=== PATIENT | female | born 2000 | race Caucasian/White ===

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

== ENCOUNTER 2020-04-05 19:15 | Outpatient (CLI) | payer MEDICAID ==
[~2020-04-05] VITALS: Ht 157.5 cm; Wt 85.0 kg
--- NOTE | 2020-04-05 19:20 | NUR ---
CAROLYN GUPTA presented to unit via ambulatory from ED, accompanied by so , with c/o PELVIC PRESSURE/PAIN. CAROLYN GUPTA weighed, gowned, voided, and to bed. EFHM and TOCO applied, VS taken. CAROLYN GUPTA oriented to bed controls, call light, TV, heat, and A/C controls. above and further assessments compeleted per this rn.
[2020-04-05 19:35] VITALS: BP 112/69
[2020-04-05 19:39] VITALS: BP 112/69
[2020-04-05 19:42] LABS: BILIRUBIN,URINE NEGATIVE (NEGATIVE); CLARITY,URINE SL CLOUDY; COLOR,URINE YELLOW; GLUCOSE, URINE (UA) NEGATIVE (NEGATIVE); KETONES,URINE NEGATIVE (NEGATIVE); LEUKOCYTE ESTERASE ,URINE 1+ (NEGATIVE); NITRITE,URINE NEGATIVE (NEGATIVE); PROTEIN,URINE TRACE (NEGATIVE)
[2020-04-05 20:20] LABS: BACTERIA,URINE TRACE /HPF
--- NOTE | 2020-04-05 20:25 | NUR ---
reports not treating u/a results with a/b r/t squamous cell contamination and will watch for culture results.
[2020-04-05] MEDS ORDERED: PREN-53 PO (20:30)
--- NOTE | 2020-04-05 20:35 | NUR ---
Discharge packet given and explained, understanding voiced per pt, denies needs. rn urged pt to keep prescheduled appt for what thought on the phone was at 1300. Pt voiced understanding, pt ambulatory off unit at this time accompanied by so. no ss distress noted.
--- NOTE | 2020-04-06 08:12 | Physician Query-Final Dx ---
Clinic Account Progress/Dx Physician Query: Please give diagnosis Please include # weeks gestation Date of Service Apr 05, 2020 at 19:15 JANETT MESA Apr 06, 2020 08:12
== END 2020-04-05 20:35 | disposition home or self-care (01) ==
LOC: WSo 19:15 → LDRP 19:15 → WSo 20:35
PROVIDERS: ATTEND Family Medicine
DX: O99.89 Other specified diseases and conditions complicating pregnancy, childbirth and the puerperium (principal); Z3A.00 Weeks of gestation of pregnancy not specified
CPT/HCPCS: 81000; 87088; 99212

== ENCOUNTER → 2020-04-06 | Outpatient (CLI) | payer MEDICAID ==
[~2020-04-06] MED LIST changes: +PREN-53 PO
[2020-04-06 15:41] LABS: HEMATOCRIT 34 % (35-52); HEMOGLOBIN 11.4 G/DL (11.5-16.0); LYMPHOCYTES % (AUTO) 25 % (12-44); MEAN CORPUSCULAR HEMOGLOBIN 31 PG (25-34); MEAN CORPUSCULAR HGB CONC 33 G/DL (32-36); MEAN CORPUSCULAR VOLUME 94 FL (80-99); MEAN PLATELET VOLUME 8.6 FL (7.4-10.4); MONOCYTES % (AUTO) 5 % (0-12); NEUTROPHILS % (AUTO) 69 % (42-75); PLATELET COUNT 299 10^3/uL (130-400); RED CELL DISTRIBUTION WIDTH 12.1 % (10.0-14.5); WHITE BLOOD COUNT 11.2 10^3/uL (4.3-11.0)
[2020-04-06 15:42] LABS: BASOPHILS % (AUTO) 0 % (0-10); EOSINOPHILS # (AUTO) 0.1 10^3/uL (0.0-0.3); EOSINOPHILS % (AUTO) 1 % (0-10); LYMPHOCYTES # (AUTO) 2.8 X 10^3 (1.0-4.0); MONOCYTES # (AUTO) 0.5 X 10^3 (0.0-1.0); NEUTROPHILS # (AUTO) 7.7 X 10^3 (1.8-7.8)
== END ==
LOC: LAB FS 14:59
PROVIDERS: ATTEND Family Medicine
DX: Z34.90 Encounter for supervision of normal pregnancy, unspecified, unspecified trimester (principal)
CPT/HCPCS: 36415; 82950; 85025; 86780

== ENCOUNTER 2020-04-09 17:16 | Outpatient (CLI) | payer MEDICAID ==
--- NOTE | 2020-04-09 17:25 | NUR ---
CAROLYN GUPTA presented to unit via ambulatory from ED, accompanied by Bakari , with c/o PRESSURE. CAROLYN GUPTA weighed, gowned, voided, and to bed. EFHM and TOCO applied, VS taken. CAROLYN GUPTA oriented to bed controls, call light, TV, heat, and A/C controls.
[2020-04-09 17:30] VITALS: BP 105/58
[2020-04-09 17:47] VITALS: BP 105/58
[2020-04-09 17:49] VITALS: BP 105/58
[2020-04-09 17:51] LABS: BILIRUBIN,URINE NEGATIVE (NEGATIVE); CLARITY,URINE SL CLOUDY; COLOR,URINE YELLOW; GLUCOSE, URINE (UA) NEGATIVE (NEGATIVE); KETONES,URINE NEGATIVE (NEGATIVE); LEUKOCYTE ESTERASE ,URINE 1+ (NEGATIVE); NITRITE,URINE NEGATIVE (NEGATIVE); PROTEIN,URINE NEGATIVE (NEGATIVE)
[2020-04-09 18:01] LABS: BACTERIA,URINE TRACE /HPF
[2020-04-09] MEDS ORDERED: NS IV 1000 ML 1,000 ML ONE (18:26)
--- NOTE | 2020-04-09 18:26 | NUR ---
Dr Zeng notified of pt admission and complaints of pelvic pressure and inability to void. Voided 30 mls of urine upon admission - states that is the only time voided today. UA results given to physician. Having some uterine irritability - pt not really aware of them on admission. Will start IV.
[2020-04-09] MEDS ORDERED: NS IV 1000 ML 1,000 ML IV SCH (18:30)
[2020-04-09 20:03] VITALS: BP 88/55
--- NOTE | 2020-04-09 20:03 | NUR ---
Fluids are done infusing. Pt. states she feels as if she can void. Up to bathroom. Voided 200ml of straw colored urine into hat. Back to bed.
--- NOTE | 2020-04-09 20:08 | NUR ---
Dr. Zeng updated on pt. Strip reviewed. Informed that pt states she still feels pressure, but was able to void 200ml of urine. orders that pt can be discharged at this time.
[2020-04-09 20:22] VITALS: BP 101/57
--- NOTE | 2020-04-12 08:17 | Physician Query-Final Dx ---
JANETT MESA 04/12/20 0817: Clinic Account Progress/Dx Physician Query: Please give diagnosis Please include # weeks gestation Date of Service Apr 09, 2020 at 17:16 DARNELL MEJÍA DO 04/12/20 1917: Clinic Account Progress/Dx DIAGNOSIS: Diagnosis 28 week gestation uterine irritability pelvic pressure inability to void JANETT MESA Apr 12, 2020 08:17 DARNELL MEJÍA DO Apr 12, 2020 19:17
== END 2020-04-09 20:23 ==
LOC: WSo 17:16 → LDRP 17:17 → WSo 20:23
PROVIDERS: ATTEND Obstetrics & Gynecology
DX: O26.893 Other specified pregnancy related conditions, third trimester (principal); N85.8 Other specified noninflammatory disorders of uterus; R10.2 Pelvic and perineal pain; R39.198 Other difficulties with micturition; Z3A.28 28 weeks gestation of pregnancy
CPT/HCPCS: 81000; 87088; 96360; 99213

== ENCOUNTER 2020-05-22 21:53 | Outpatient (CLI) | payer MEDICAID ==
[~2020-05-22] VITALS: Ht 157.5 cm; Wt 84.3 kg
--- NOTE | 2020-05-22 22:00 | NUR ---
CAROLYN GUPTA presented to unit via ambulation from ED, accompanied by s.o., with c/o SHARP PAINS. CAROLYN GUPTA weighed, gowned, voided, and to bed. EFHM and TOCO applied, VS taken. CAROLYN GUPTA oriented to bed controls, call light, TV, heat, and A/C controls.
[2020-05-22 22:26] VITALS: BP 119/68
[2020-05-22 22:40] VITALS: BP 119/68
--- NOTE | 2020-05-22 22:40 | NUR ---
Discharge instructions verbalized with pt. Labor precautions given. Pt dc'd home with s/o. Will follow up with
--- NOTE | 2020-05-24 08:13 | Physician Query-Final Dx ---
JANETT MESA 05/24/20 0813: Clinic Account Progress/Dx Physician Query: Please give diagnosis Please include # weeks gestation Date of Service May 22, 2020 at 21:53 LUÍS MONTILLA MD 05/24/20 1310: Clinic Account Progress/Dx DIAGNOSIS: Diagnosis 34 weeks gestation with false labor JANETT MESA May 24, 2020 08:13 LUÍS MONTILLA MD May 24, 2020 13:10
== END 2020-05-22 22:40 | disposition home or self-care (01) ==
LOC: LDRP 21:53 → WSo 21:53
PROVIDERS: ATTEND Obstetrics & Gynecology
DX: O47.03 False labor before 37 completed weeks of gestation, third trimester (principal); Z3A.34 34 weeks gestation of pregnancy
CPT/HCPCS: 99213

== ENCOUNTER → 2020-06-02 | Outpatient (CLI) | payer MEDICAID | LOC: LABNPT 14:55 | PROVIDERS: ATTEND Family Medicine | DX: Z34.80 Encounter for supervision of other normal pregnancy, unspecified trimester (principal); Z3A.00 Weeks of gestation of pregnancy not specified | CPT/HCPCS: 87081 ==

== ENCOUNTER 2020-06-22 05:58 | Inpatient (IN) | payer MEDICAID ==
[~2020-06-22] VITALS: Ht 157.5 cm; Wt 83.1 kg
[2020-06-22] VITALS (44 sets, daily range): BP systolic 88–120; BP diastolic 51–79
--- NOTE | 2020-06-22 06:04 | NUR ---
CAROLYN GUPTA presented to unit via from ED, accompanied by SO,for INDUCTION. CAROLYN GUPTA weighed, gowned, voided, and to bed. EFHM and TOCO applied, VS taken. CAROLYN GUPTA oriented to bed controls, call light, TV, heat, and A/C controls.
[2020-06-22] MEDS ORDERED: D5 LR IV SOLUTION 1,000 ML IV SCH (07:22)
[2020-06-22] MEDS ORDERED: OXYTOCIN PRE-MIX DRIP 500 ML IV SCH ×2 (07:22→13:04)
[2020-06-22] MEDS ORDERED: AMPICILLIN FOR IV USE 2,000 MG in WATER (STERILE) FOR INJECTION 14.8 ML IV SCH (07:22)
[2020-06-22] MEDS ORDERED: MINERAL OIL CONCENTRATE 99.9% 15 ML UDC TOP PRN (07:30)
[2020-06-22] MEDS ORDERED: AMPICILLIN FOR IV USE 2,000 MG VIAL ONE (07:30)
[2020-06-22] MEDS ORDERED: D5 LR IV SOLUTION 1,000 ML IV ONE (07:30)
[2020-06-22] MEDS ORDERED: WATER (STERILE) FOR INJECTION 20 ML ONE (07:30)
[2020-06-22 08:31] LABS: BASOPHILS % (AUTO) 0 % (0-10); EOSINOPHILS # (AUTO) 0.1 10^3/uL (0.0-0.3); EOSINOPHILS % (AUTO) 1 % (0-10); HEMATOCRIT 29 % (35-52); HEMOGLOBIN 9.6 g/dL (11.5-16.0); LYMPHOCYTES # (AUTO) 2.4 10^3/uL (1.0-4.0); LYMPHOCYTES % (AUTO) 25 % (12-44); MEAN CORPUSCULAR HEMOGLOBIN 32 pg (25-34); MEAN CORPUSCULAR HGB CONC 34 g/dL (32-36); MEAN CORPUSCULAR VOLUME 96 fL (80-99); MEAN PLATELET VOLUME 8.8 fL (9.0-12.2); MONOCYTES # (AUTO) 0.6 10^3/uL (0.0-1.0); MONOCYTES % (AUTO) 7 % (0-12); NEUTROPHILS # (AUTO) 6.4 10^3/uL (1.8-7.8); NEUTROPHILS % (AUTO) 67 % (42-75); PLATELET COUNT 204 10^3/uL (130-400); WHITE BLOOD COUNT 9.6 10^3/uL (4.3-11.0)
[2020-06-22] MEDS ORDERED: fentaNYL 2 mcg/ml BUPIVA 0.125 100 ML ONE (09:46)
[2020-06-22] MEDS ORDERED: BUPIVACAINE 0.25% 30 ML (SENSORCAINE) VIAL ONE (10:34)
[2020-06-22] MEDS ORDERED: LIDOCAINE PF 2% 5 ML (XYLOCAINE) VIAL ONE (10:34)
[2020-06-22] MEDS ORDERED: fentaNYL INJECTION 100 MCG/2 ML AMP ONE (10:34)
[2020-06-22] MEDS ORDERED: LACTATED RINGERS 1,000 ML IV ONE ×2 (10:47)
[2020-06-22] MEDS ORDERED: ONDANSETRON 4 MG/2 ML (SDV) Z0FRAN IV PRN (11:00)
[2020-06-22] MEDS ORDERED: NALOXONE 0.4 MG/ML 1 ML (NARCAN) VIAL IV PRN (11:00)
[2020-06-22] MEDS ORDERED: fentaNYL INJECTION 100 MCG/2 ML AMP INJ ONE (11:00)
[2020-06-22] MEDS ORDERED: EPIDURAL (fentaNYL 2 MCG/ML BUPIVA 0.125%)100 ML BAG EPI PRN (11:00)
[2020-06-22] MEDS ORDERED: AMPICILLIN FOR IV USE 1,000 MG in WATER (STERILE) FOR INJECTION 7.4 ML IV SCH (11:30)
[2020-06-22] MEDS ORDERED: LIDOCAINE/EPI 2% 1:200,00 (XYLOCAINE) 10 ML VIAL ONE (12:39)
--- NOTE | 2020-06-22 13:02 | History & Physical-OB ---
OB - Chief Complaint & HPI Date/Time Date of Admission: Date of Admission: Jun 22, 2020 at 05:58 Date seen by a Provider: Jun 22, 2020 Time Seen by a Provider: 12:30 Chief Complaint/History OB-Reason for Admission/Chief: Induction of Labor Hx : 2 Hx Para: 1 Expected Date of Delivery: Jun 28, 2020 Gestational Age in Weeks: 39 Gestational Age in Days: 1 Admission Nurse Assessment Rev: Yes Allergies and Home Medications Allergies Coded Allergies: latex (Verified Allergy, Unknown, 06/22/20) Home Medications [id number]/Iron Fumarate/FA/Dss 1 Each Tablet, 1 EACH PO DAILY, (Reported) Patient Home Medication List Home Medication List Reviewed: Yes OB - History Hx of Present Care: Yes Ultrasounds: Normal mid trimester US Obstetrical Complications: None Medical Complications: None Patient Past Medical History previously healthy Social History/Family History Alcohol Use: Denies Use Recreational Drug Use: No 2nd Hand Smoke Exposure: Yes Immunizations Hepatitis A: Yes Hepatitis B: Yes OB - Admission Exam Physical Exam Vitals: Vital Signs 06/22/20 06/22/20 11:11 12:05 Temp 36.8 Pulse 68 Resp 18 B/P (MAP) 92/53 (66) Pulse Ox 99 O2 Delivery Room Air HEENT: NCAT Heart: Rhythm Normal Lungs: Clear Abdomen: Gravid Extremities: Normal Reflexes: Normal Cervical Dilatation: 10cm Effacement: 100% Station: -1 Membranes: Ruptured Amniotic Fluid: Clear Heart Rate: 130's Accelerations: Accelerations Present Decelerations: No Decelerations Short Term Variability: Present Consular Officer Variability: Average (6-25) Contractions on Admission: < 5 Minutes Apart Labs Laboratory Tests Test 06/22/20 06:35 Range/Units White Blood Count 9.6 4.3-11.0 10^3/uL Red Blood Count 2.98 L 3.80-5.11 10^6/uL Hemoglobin 9.6 L 11.5-16.0 g/dL Hematocrit 29 L 35-52 % Mean Corpuscular Volume 96 80-99 fL Mean Corpuscular Hemoglobin 32 25-34 pg Mean Corpuscular Hemoglobin Concent 34 32-36 g/dL Red Cell Distribution Width 13.4 10.0-14.5 % Platelet Count 204 130-400 10^3/uL Mean Platelet Volume 8.8 L 9.0-12.2 fL Immature Granulocyte % (Auto) 0 % Neutrophils (%) (Auto) 67 42-75 % Lymphocytes (%) (Auto) 25 12-44 % Monocytes (%) (Auto) 7 0-12 % Eosinophils (%) (Auto) 1 0-10 % Basophils (%) (Auto) 0 0-10 % Neutrophils # (Auto) 6.4 1.8-7.8 10^3/uL Lymphocytes # (Auto) 2.4 1.0-4.0 10^3/uL Monocytes # (Auto) 0.6 0.0-1.0 10^3/uL Eosinophils # (Auto) 0.1 0.0-0.3 10^3/uL Basophils # (Auto) 0.0 0.0-0.1 10^3/uL Immature Granulocyte # (Auto) 0.0 0.0-0.1 10^3/uL OB - Assessment/Plan/Diagnosis Assessment Assessment: induction of labor Admission Dx Induction of labor at 39 1/7 wga. Admission Status: Inpatient Order (span 2 midnights) Reason for Inpatient Admission: Induction of labor. Plan Induction Method: per Pitocin Protocol Other Plan Epidural for pain. Ampicillin times 2 for GBS positive status. Pitocin. SEBASTIÁN HUERTA MD Jun 22, 2020 13:02
--- NOTE | 2020-06-22 13:04 | OB Labor & Delivery Record ---
Vag Delivery Note Vag Delivery Note Date of Delivery: 06/22/20 Preoperative Diagnosis: Patty Tay is a (19 /Para / ,Gestational Age (wks)39with [1 day] Postoperative Diagnosis: Same Surgeon: SEBASTIÁN HUERTA Lever Tender: [none] Anesthesia: [epidural] Delivery Type: [] Findings: [] Viable [female] , apgars [8/9] Lacerations: Intact placenta with 3 vessel cord. No nuchal cord, body cord or shoulder dystocia Estimated Blood Loss: [200] ml Complications: None Condition: Stable Description of Procedure: The patient is a 19 year old female who presented [for induction of labor]. She was admitted and informed consent was obtained. Her labor course was remarkable for [nothing] She progressed to complete dilatation and began to push. She was then set up for delivery. The infant's head was delivered atraumatically in the [OA] position. The shoulders and remainder of the 's body were then delivered without difficulty. Upon delivery, the head was held below the level of the perineum and the mouth and nares were bulb suctioned. The cord was doubly clamped and cut after 60 seconds on maternal abdomen by father of baby. An intact placenta with 3-vessel cord delivered via K[place] and there was found to be minimal bleeding.~ Vigorous fundal massage was performed and the fundus was found to be firm. IV oxytocin was given. Examination of the vagina and perineum revealed no lacerations. Following the repair, sponge, instrument and needle counts were correct. Mom and baby were both in stable condition in the labor suite. Vitals - Labs Vital Signs - I&O Vital Signs Date Time Temp Pulse Resp B/P (MAP) Pulse Ox O2 Delivery O2 Flow Rate FiO2 06/22/20 12:05 68 18 92/53 (66) 99 Room Air 06/22/20 11:55 68 18 90/55 (67) 100 Room Air 06/22/20 11:47 58 18 98/61 (73) 99 Room Air 06/22/20 11:44 66 18 94/51 (65) 99 Room Air 06/22/20 11:41 67 18 107/57 (74) 99 Room Air 06/22/20 11:38 101 18 100/56 (71) 99 Room Air 06/22/20 11:35 74 18 101/57 (72) 99 Room Air 06/22/20 11:32 90 18 103/60 (74) 98 Room Air 06/22/20 11:30 97 18 106/70 (82) 99 Room Air 06/22/20 11:27 71 18 95/61 (72) 99 Room Air 06/22/20 11:23 79 18 92/56 (68) 98 Room Air 06/22/20 11:20 86 18 88/51 (63) 98 Room Air 06/22/20 11:17 79 18 109/73 (85) 99 Room Air 06/22/20 11:14 96 18 106/65 (79) 99 Room Air 06/22/20 11:11 36.8 89 18 102/60 (74) 99 Room Air 06/22/20 11:08 93 18 114/72 (86) 98 Room Air 06/22/20 11:05 84 18 112/68 (83) 100 Room Air 06/22/20 10:57 90 18 119/79 (92) 99 Room Air 06/22/20 10:45 80 18 120/77 (91) 06/22/20 10:30 68 18 112/71 (85) 06/22/20 10:00 70 18 115/71 (86) 06/22/20 09:45 71 18 120/73 (89) 06/22/20 09:30 73 18 101/60 (74) 06/22/20 09:15 78 18 110/68 (82) 06/22/20 09:00 68 18 102/61 (75) 06/22/20 08:27 36.4 87 18 99/61 (74) 06/22/20 06:23 36.7 85 20 98 Room Air Labs Laboratory Tests 06/22/20 06:35: White Blood Count 9.6, Red Blood Count 2.98L, Hemoglobin 9.6L, Hematocrit 29L, Mean Corpuscular Volume 96, Mean Corpuscular Hemoglobin 32, Mean Corpuscular Hemoglobin Concent 34, Red Cell Distribution Width 13.4, Platelet Count 204, Mean Platelet Volume 8.8L, Immature Granulocyte % (Auto) 0, Neutrophils (%) (Auto) 67, Lymphocytes (%) (Auto) 25, Monocytes (%) (Auto) 7, Eosinophils (%) (Auto) 1, Basophils (%) (Auto) 0, Neutrophils # (Auto) 6.4, Lymphocytes # (Auto) 2.4, Monocytes # (Auto) 0.6, Eosinophils # (Auto) 0.1, Basophils # (Auto) 0.0, Immature Granulocyte # (Auto) 0.0 SEBASTIÁN HUERTA MD Jun 22, 2020 13:04
[2020-06-22] MEDS ORDERED: TETANUS,DIPTH,PERTUSS P/F (BOOSTRIX) 0.5 ML VIAL IM ONE (13:15)
[2020-06-22] MEDS ORDERED: MEASLES,MUMPS,RUBELLA 1 EA INJ SQ ONE (13:15)
[2020-06-22] MEDS ORDERED: WITCH HAZEL(TUCKS) 40 EA JAR TOP PRN (13:15)
[2020-06-22] MEDS ORDERED: BENZOCAINE/MENTHOL (DERMOPLAST) 60 ML CAN TP PRN (13:15)
[2020-06-22] MEDS ORDERED: CATHETER FLUSH 10 ML SYR IV SCH ×2 (14:00)
[2020-06-22] MEDS: IBUPROFEN 600 MG (MOTRIN) TAB PO SCH ×2 (15:45→21:15)
[2020-06-22] MEDS: ACETAMINOPHEN 500 MG TAB (TYLENOL) PO SCH (17:12)
--- NOTE | 2020-06-22 17:25 | NUR ---
Pt ambulated to bathroom with + void. 1 clot expressed, aprox. 3cm. Pericare provided, new vpad, panties, and gown on.
--- NOTE | 2020-06-22 17:30 | NUR ---
Pt ambulated to new room 308 with s/o, RN's, , and all belongings. Pt and s/o oriented to call light and surroundings. packet explained. Pt denies needs or concerns at this time
[2020-06-22] MEDS: DOCUSATE SODIUM 100 MG (COLACE) CAP PO SCH (21:15)
--- NOTE | 2020-06-22 21:26 | NUR ---
Pt sitting up in bed holding nb, assessment completed. pt denies any needs at this time. s/o sleeping at bedside. Will continue to monitor.
[2020-06-23] MEDS: ACETAMINOPHEN 500 MG TAB (TYLENOL) PO SCH ×2 (00:43→08:25)
[2020-06-23 02:00] VITALS: BP 94/61
[2020-06-23] MEDS: IBUPROFEN 600 MG (MOTRIN) TAB PO SCH ×2 (02:49→08:30)
[2020-06-23 06:12] LABS: BASOPHILS % (AUTO) 0 % (0-10); EOSINOPHILS # (AUTO) 0.2 10^3/uL (0.0-0.3); EOSINOPHILS % (AUTO) 2 % (0-10); HEMATOCRIT 28 % (35-52); HEMOGLOBIN 9.2 g/dL (11.5-16.0); LYMPHOCYTES # (AUTO) 2.8 10^3/uL (1.0-4.0); LYMPHOCYTES % (AUTO) 24 % (12-44); MEAN CORPUSCULAR HEMOGLOBIN 32 pg (25-34); MEAN CORPUSCULAR HGB CONC 33 g/dL (32-36); MEAN CORPUSCULAR VOLUME 97 fL (80-99); MEAN PLATELET VOLUME 8.7 fL (9.0-12.2); MONOCYTES # (AUTO) 0.7 10^3/uL (0.0-1.0); MONOCYTES % (AUTO) 6 % (0-12); NEUTROPHILS # (AUTO) 7.9 10^3/uL (1.8-7.8); NEUTROPHILS % (AUTO) 67 % (42-75); PLATELET COUNT 171 10^3/uL (130-400); WHITE BLOOD COUNT 11.7 10^3/uL (4.3-11.0)
--- NOTE | 2020-06-23 06:52 | Anesthesia-Regional Post-Op ---
Regional Patient Condition Mental Status: Alert, Oriented x3 Circulation: Same as Pre-Op Headache: Absent Sensation: Full Recovery Motor Block: Absent Post Op Complications Complications None Follow Up Care/Instructions Patient Instructions None needed. Anesthesia/Patient Condition Patient is doing well, no complaints, stable vital signs, no apparent adverse anesthesia problems. No complications reported per nursing. JASON BEARD CRNA Jun 23, 2020 06:52
--- NOTE | 2020-06-23 06:58 | NUR ---
pt put production planning manager light requesting pain medication. Unable to give pain meds at this time. warm blanket applied to back. Pt denies any other needs at this time.
[2020-06-23] MEDS ORDERED: IBUP-844 PO (07:11)
--- NOTE | 2020-06-23 07:11 | Discharge Summary ---
Discharge Inst-[facility] Reconcile Patient Problems Problems Reviewed?: Yes Depart Medications New, Converted or Re-Newed RX: Transmitted to Pharmacy Follow Up/Instructions Goal/Follow Up: Dr. Huerta in 6 weeks. Activity Activity: Activity as Tolerated Driving Instructions: You May Drive NO SMOKING: NO SMOKING Nothing Inside Vagina: No Douching, No [place], No Tampons Diet Discharge Diet: No Restrictions Symptoms to Report to : Fever Over 101 Degrees F, Vaginal Bleeding Increase For Any Problems or Questions: Contact Your Physician SEBASTIÁN HUERTA MD Jun 23, 2020 07:11
--- NOTE | 2020-06-23 07:14 | Discharge Summary ---
Diagnosis/Chief Complaint Date of Admission Jun 22, 2020 at 05:58 Date of Discharge Jun 23, 2020 Admission Diagnosis Admission Diagnosis Induction of labor at 39 1/7 wga. Discharge Diagnosis Vaginal delivery at 39 1/7 wga. Problems/Diagnosis: (1) care following vaginal delivery Assessment & Plan: Pain controlled. Bleeding decreased. Vitals and hemoglobin stable. Nursing. Discharge Summary-OBS Procedures None. Discharge Physical Examination Allergies: Coded Allergies: latex (Verified Allergy, Unknown, 06/22/20) Vitals & I&Os Intake and Output 06/23/20 00:00 Intake Total 2400 ml Balance 2400 ml Vital Sign - Last 12Hours Date Time Temp Pulse Resp B/P (MAP) Pulse Ox O2 Delivery O2 Flow Rate FiO2 06/23/20 02:00 36.5 52 18 94/61 (72) Room Air 06/22/20 12:50 100 General Appearance: Alert, Oriented X3 HEENT: Atraumatic Respiratory: Clear to Auscultation Cardiovascular: Regular Rate, Normal S1 Abdominal: Normal Bowel Sounds, Other (fundus firm below umbilicus) Extremities: No Edema Skin: No Rashes Neuro: Normal Gait Psych/Mental Status: Mental Status NL Hospital Course Was the Problem List Reviewed?: Yes Unremarkable course. Labs Laboratory Tests 06/23/20 05:42: White Blood Count 11.7H, Red Blood Count 2.85L, Hemoglobin 9.2L, Hematocrit 28L, Mean Corpuscular Volume 97, Mean Corpuscular Hemoglobin 32, Mean Corpuscular Hemoglobin Concent 33, Red Cell Distribution Width 13.3, Platelet Count 171, Mean Platelet Volume 8.7L, Immature Granulocyte % (Auto) 0, Neutrophils (%) (Auto) 67, Lymphocytes (%) (Auto) 24, Monocytes (%) (Auto) 6, Eosinophils (%) (Auto) 2, Basophils (%) (Auto) 0, Neutrophils # (Auto) 7.9H, Lymphocytes # (Auto) 2.8, Monocytes # (Auto) 0.7, Eosinophils # (Auto) 0.2, Basophils # (Auto) 0.0, Immature Granulocyte # (Auto) 0.0 Discharge Instructions to patient/family Please see electronic discharge instructions given to patient. Discharge Medications Reviewed and agree with Discharge Medication list on patient's Discharge Instruction sheet Clinical Quality Measures DVT/VTE Risk/Contraindication: Risk Factor Score Per Nursin RFS Level Per Nursing on Admit: 2=Moderate SEBASTIÁN HUERTA MD Jun 23, 2020 07:14
[2020-06-23] MEDS: DOCUSATE SODIUM 100 MG (COLACE) CAP PO SCH (08:24)
[2020-06-23 08:30] VITALS: BP 97/66
--- NOTE | 2020-06-23 09:30 | NUR ---
home instructions given. Pt verbalizes understanding. Pt refused Tdap and flu vaccine. Awaiting infant's 24 hr test before able to discharge. No complaints.
[2020-06-23 13:00] VITALS: BP 105/71
[2020-06-23 15:45] VITALS: BP 105/71
--- NOTE | 2020-06-23 15:45 | NUR ---
DISMISSED AMB FROM [facility] WITH INFANT IN STABLE CONDITION TO [facility] BY Anjelica AND MICHELLE ORTIZ RN.
[2020-06-23 16:45] VITALS: BP 105/71
== END 2020-06-23 15:45 | disposition home or self-care (01) | DRG 807 ==
LOC: LDRP 05:58
PROVIDERS: ADMIT Family Medicine; ATTEND Family Medicine
PROC: 10E0XZZ Delivery of Products of Conception, External Approach (ICD-10-PCS; principal; 2020-06-22)
PROC: 3E033VJ Introduction of Other Hormone into Peripheral Vein, Percutaneous Approach (ICD-10-PCS; 2020-06-22)
DX: O99.824 Streptococcus B carrier state complicating childbirth (principal); Z37.0 Single live birth; Z3A.39 39 weeks gestation of pregnancy; Z91.040 Latex allergy status
CPT/HCPCS: 36415; 85025; 86850; 86900; 86901

== ENCOUNTER → 2020-10-06 | Outpatient (CLI) | payer MEDICAID ==
[~2020-10-06] MED LIST changes: +IBUP-844 PO
== END ==
LOC: LABNPT 14:39
PROVIDERS: ATTEND Family Medicine
DX: R10.30 Lower abdominal pain, unspecified (principal)
CPT/HCPCS: 87088

== ENCOUNTER → 2021-02-07 | Outpatient (CLI) | payer MEDICAID | LOC: LAB FS 12:43 | PROVIDERS: ATTEND Family Medicine | DX: N92.5 Other specified irregular menstruation (principal) | CPT/HCPCS: 36415; 84702 ==

== ENCOUNTER → 2021-03-18 | Outpatient (CLI) | payer MEDICAID ==
[2021-03-18 14:52] LABS: BASOPHILS % (AUTO) 0 % (0-10); EOSINOPHILS % (AUTO) 1 % (0-10); HEMATOCRIT 34 % (35-52); HEMOGLOBIN 11.8 G/DL (11.5-16.0); LYMPHOCYTES % (AUTO) 25 % (12-44); MEAN CORPUSCULAR HEMOGLOBIN 32 PG (25-34); MEAN CORPUSCULAR HGB CONC 35 G/DL (32-36); MEAN CORPUSCULAR VOLUME 91 FL (80-99); MEAN PLATELET VOLUME 8.6 FL (7.4-10.4); MONOCYTES % (AUTO) 6 % (0-12); NEUTROPHILS % (AUTO) 67 % (42-75); PLATELET COUNT 328 10^3/uL (130-400); WHITE BLOOD COUNT 9.4 10^3/uL (4.3-11.0)
[2021-03-18 14:53] LABS: EOSINOPHILS # (AUTO) 0.1 10^3/uL (0.0-0.3); LYMPHOCYTES # (AUTO) 2.3 X 10^3 (1.0-4.0); MONOCYTES # (AUTO) 0.6 X 10^3 (0.0-1.0); NEUTROPHILS # (AUTO) 6.3 X 10^3 (1.8-7.8)
== END ==
LOC: LAB FS 14:27
PROVIDERS: ATTEND Family Medicine
DX: Z34.91 Encounter for supervision of normal pregnancy, unspecified, first trimester (principal); Z3A.00 Weeks of gestation of pregnancy not specified
CPT/HCPCS: 36415; 80055; 84702; 86703; 86762; 86780; 87088

== ENCOUNTER → 2021-06-02 | Outpatient (CLI) | payer MEDICAID ==
[~2021-06-02] MED LIST changes: -SULF1TAB35 PO; +SULF1TAB38 PO
--- NOTE | 2021-06-02 14:25 | Diagnostic Imaging Report ---
INDICATION: survey. TECHNIQUE: Multiple real-time grayscale images were obtained over the gravid uterus. COMPARISON: None. FINDINGS: There is a single live fetus in a cephalic presentation. heart rate was recorded at 156 BPM. Placenta is anterior and fundal. Amniotic fluid volume is normal. Cervical length is 5.1 cm. kidneys, bladder, and stomach are unremarkable. brain is unremarkable. There is a four-chamber heart. There is a three-vessel cord with normal insertion. The spine is unremarkable. Biometrical measurements are as follows: Biparietal 4.94 cm, age 21 weeks 0 days. Head circumference 18.68 cm, age 21 weeks 1 days. Abdominal circumference 16.44 cm, age 21 weeks 4 days. Femur length 3.22 cm, age 21 weeks 1 days. Sonographic estimate age: 21 weeks 0 days. Sonographic estimated date of delivery: 10/13/2021. Estimated Weight: 382 gm (+/- 56 gm). LMP percentile: 69%. heart rate: 156 beats per minute. number: 1 of 1. IMPRESSION: Single live IUP of 21 weeks 0 days gestational age. Estimated date of confinement sonographically is 10/13/2021. No complicating features are detected. Dictated by: Dictated on workstation # [id number]
== END ==
LOC: RAD FS 13:01
PROVIDERS: ATTEND Family Medicine
DX: Z34.92 Encounter for supervision of normal pregnancy, unspecified, second trimester (principal)
CPT/HCPCS: 76805

== ENCOUNTER → 2021-06-06 | Outpatient (CLI) | payer MEDICAID | LOC: LABNPT 14:43 | PROVIDERS: ATTEND Family Medicine | DX: N39.0 Urinary tract infection, site not specified (principal) | CPT/HCPCS: 87088 ==

== ENCOUNTER → 2021-08-01 | Outpatient (CLI) | payer MEDICAID ==
[2021-08-01 15:02] LABS: HEMATOCRIT 30 % (35-52); HEMOGLOBIN 10.1 g/dL (11.5-16.0); MEAN CORPUSCULAR HEMOGLOBIN 32 pg (25-34); MEAN CORPUSCULAR HGB CONC 34 g/dL (32-36); MEAN CORPUSCULAR VOLUME 94 fL (80-99); MEAN PLATELET VOLUME 8.4 fL (9.0-12.2); PLATELET COUNT 202 10^3/uL (130-400); WHITE BLOOD COUNT 6.7 10^3/uL (4.3-11.0)
== END ==
LOC: LAB FS 14:19
PROVIDERS: ATTEND Family Medicine
DX: Z34.91 Encounter for supervision of normal pregnancy, unspecified, first trimester (principal); Z3A.00 Weeks of gestation of pregnancy not specified
CPT/HCPCS: 36415; 82950; 85027; 86592

== ENCOUNTER → 2021-08-02 | Outpatient (CLI) | payer MEDICAID | LOC: LABNPT 15:08 | PROVIDERS: ATTEND Family Medicine | DX: R30.9 Painful micturition, unspecified (principal) | CPT/HCPCS: 87088 ==

== ENCOUNTER 2021-08-15 17:29 | Outpatient (CLI) | payer MEDICAID ==
[~2021-08-15] VITALS: Ht 160 cm; Wt 80.8 kg
[2021-08-15 17:53] LABS: BILIRUBIN,URINE NEGATIVE (NEGATIVE); CLARITY,URINE CLEAR; COLOR,URINE YELLOW; GLUCOSE, URINE (UA) NEGATIVE (NEGATIVE); KETONES,URINE NEGATIVE (NEGATIVE); LEUKOCYTE ESTERASE ,URINE 1+ (NEGATIVE); NITRITE,URINE NEGATIVE (NEGATIVE); PROTEIN,URINE NEGATIVE (NEGATIVE)
[2021-08-15 17:55] VITALS: BP 99/59
[2021-08-15 18:00] LABS: BACTERIA,URINE NEGATIVE /HPF; RENAL EPITHELIAL CELLS,URINE 0-2 /HPF; SQUAMOUS EPITHELIAL CELL,UR 0-2 /HPF
--- NOTE | 2021-08-16 08:23 | Physician Query-Final Dx ---
MOSHE08/16/21 0823: Clinic Account Progress/Dx Physician Query: Please give diagnosis Please include # weeks gestation Date of Service Aug 15, 2021 at 17:29 MALIK GONZALEZ DO 08/16/21 1221: Clinic Account Progress/Dx DIAGNOSIS: Diagnosis 31 week IUP Irregular cramping MOSHE,SepAug 16, 2021 08:23 MALIK GONZALEZ DO Aug 16, 2021 12:21
== END 2021-08-15 18:40 | disposition home or self-care (01) ==
LOC: LDRP 17:29 → WSo 17:29
PROVIDERS: ATTEND Obstetrics & Gynecology
DX: O26.893 Other specified pregnancy related conditions, third trimester (principal); R25.2 Cramp and spasm; Z3A.31 31 weeks gestation of pregnancy
CPT/HCPCS: 81000; 87088; G0463; 99212

== ENCOUNTER → 2021-08-16 | Outpatient (CLI) | payer MEDICAID ==
[~2021-08-16] MED LIST changes: +CYCL10TA25 PO; -CYCL10TA9 PO
== END ==
LOC: LABNPT 14:54
PROVIDERS: ATTEND Family Medicine
DX: R10.2 Pelvic and perineal pain (principal)
CPT/HCPCS: 87088

== ENCOUNTER → 2021-08-30 | Outpatient (CLI) | payer MEDICAID | LOC: LAB FS 09:02 | PROVIDERS: ATTEND Family Medicine | DX: Z34.93 Encounter for supervision of normal pregnancy, unspecified, third trimester (principal); Z3A.00 Weeks of gestation of pregnancy not specified | CPT/HCPCS: 36415; 82951; 82952 ==

== ENCOUNTER 2021-09-23 14:19 | Outpatient (CLI) | payer MEDICAID ==
[~2021-09-23] VITALS: Ht 160 cm; Wt 81.8 kg
[2021-09-23 14:48] LABS: BILIRUBIN,URINE NEGATIVE (NEGATIVE); CLARITY,URINE CLEAR; COLOR,URINE YELLOW; GLUCOSE, URINE (UA) NEGATIVE (NEGATIVE); KETONES,URINE 1+ (NEGATIVE); LEUKOCYTE ESTERASE ,URINE 2+ (NEGATIVE); NITRITE,URINE NEGATIVE (NEGATIVE); PH,URINE 7.5 (5-9); PROTEIN,URINE NEGATIVE (NEGATIVE)
[2021-09-23 14:58] LABS: BACTERIA,URINE NEGATIVE /HPF
[2021-09-23 15:00] VITALS: BP 110/61
--- NOTE | 2021-09-26 08:30 | Physician Query-Final Dx ---
Clinic Account Progress/Dx Physician Query: Please give diagnosis Please include # weeks gestation Date of Service Sep 23, 2021 at 14:19 WHEAT,SepSep 26, 2021 08:30
[2021-09-27] MEDS ORDERED: FERR325T18 PO (13:31)
[2021-09-27] MEDS ORDERED: IBUP-844 PO (13:31)
== END 2021-09-23 16:12 | disposition home or self-care (01) ==
LOC: WSo 14:19 → LDRP 14:21 → WSo 16:12
PROVIDERS: ATTEND Family Medicine
DX: Z34.90 Encounter for supervision of normal pregnancy, unspecified, unspecified trimester (principal); Z3A.00 Weeks of gestation of pregnancy not specified
CPT/HCPCS: 81000; 83789; G0463; 36415; 99213

== ENCOUNTER 2021-09-25 22:53 | Inpatient (IN) | payer MEDICAID ==
[~2021-09-25] VITALS: Ht 160 cm; Wt 82.0 kg
[2021-09-25 23:15] VITALS: BP 114/67
[2021-09-25 23:30] VITALS: BP 114/67
[2021-09-26] VITALS (48 sets, daily range): BP systolic 83–115; BP diastolic 47–74
[2021-09-26] MEDS ORDERED: MINERAL OIL CONCENTRATE 99.9% 15 ML UDC TOP PRN (00:15)
[2021-09-26] MEDS ORDERED: LACTATED RINGERS 1,000 ML IV ONE ×3 (00:17→01:15)
[2021-09-26 00:22] LABS: BASOPHILS % (AUTO) 0 % (0-10); EOSINOPHILS # (AUTO) 0.1 10^3/uL (0.0-0.3); EOSINOPHILS % (AUTO) 1 % (0-10); HEMATOCRIT 32 % (35-52); HEMOGLOBIN 10.8 g/dL (11.5-16.0); LYMPHOCYTES # (AUTO) 2.9 10^3/uL (1.0-4.0); LYMPHOCYTES % (AUTO) 26 % (12-44); MEAN CORPUSCULAR HEMOGLOBIN 32 pg (25-34); MEAN CORPUSCULAR HGB CONC 34 g/dL (32-36); MEAN CORPUSCULAR VOLUME 94 fL (80-99); MEAN PLATELET VOLUME 8.6 fL (9.0-12.2); MONOCYTES # (AUTO) 0.7 10^3/uL (0.0-1.0); MONOCYTES % (AUTO) 6 % (0-12); NEUTROPHILS # (AUTO) 7.5 10^3/uL (1.8-7.8); NEUTROPHILS % (AUTO) 66 % (42-75); PLATELET COUNT 182 10^3/uL (130-400); WHITE BLOOD COUNT 11.3 10^3/uL (4.3-11.0)
[2021-09-26] MEDS ORDERED: fentaNYL 2 mcg/ml BUPIVA 0.125 100 ML ONE (00:43)
[2021-09-26] MEDS: D5 LR IV SOLUTION 1,000 ML IV SCH ×2 (01:02→07:22)
[2021-09-26] MEDS ORDERED: BUPIVACAINE 0.25% 30 ML (SENSORCAINE) VIAL ONE (01:05)
[2021-09-26] MEDS ORDERED: fentaNYL INJ 100 MCG/2 ML AMP ONE (01:05)
[2021-09-26] MEDS ORDERED: EPIDURAL (fentaNYL 2 MCG/ML BUPIVA 0.125%)100 ML BAG EPI PRN (01:15)
[2021-09-26] MEDS ORDERED: NALOXONE 0.4 MG/ML 1 ML (NARCAN) VIAL IV PRN (01:15)
[2021-09-26] MEDS ORDERED: fentaNYL INJ 100 MCG/2 ML AMP INJ ONE (01:15)
[2021-09-26] MEDS ORDERED: ONDANSETRON 4 MG/2 ML (SDV) Z0FRAN IV PRN (01:15)
[2021-09-26] MEDS ORDERED: CATHETER FLUSH 10 ML SYR IV SCH ×2 (06:00→14:00)
[2021-09-26] MEDS ORDERED: OXYTOCIN PRE-MIX DRIP 500 ML IV ONE (07:16)
[2021-09-26] MEDS ORDERED: D5 LR IV SOLUTION 1,000 ML IV ONE (07:16)
[2021-09-26] MEDS ORDERED: OXYTOCIN PRE-MIX DRIP 500 ML IV SCH ×2 (07:30→09:30)
--- NOTE | 2021-09-26 09:07 | OB Labor & Delivery Record ---
Vag Delivery Note Vag Delivery Note Date of Delivery: 09/26/21 Preoperative Diagnosis: Patty Tay is a (21 /Para 3/2 , Gestational Age (wks)37with 0 days Postoperative Diagnosis: Same Surgeon: THOMAS SHEETS Anesthesia: Epidural Delivery Type: Findings: Viable female infant, apgars 9/9, weight 6#12 Lacerations: periurethral abrasion Intact placenta with 3 vessel cord. No nuchal cord, body cord or shoulder dystocia Estimated Blood Loss: 250 ml Complications: None Condition: Stable Description of Procedure: The patient is a 21 year old female who presented with rupture of membranes at 36w6d. She was admitted and informed consent was obtained. Her labor course was remarkable for rapid progress after minimal augmentation for only about an hour and recurrent deep variable decelerations. She progressed to complete dilatation and began to push. She was then set up for delivery. The infant's head was delivered atraumatically in the MARIA LUZ position. The shoulders and remainder of the infant's body were then delivered without difficulty. Upon delivery, the infant was placed on maternal abdomen. After a delay, the cord was doubly clamped and cut and the was handed off to the pediatric staff. An intact placenta with 3-vessel cord delivered via [place] and there was found to be minimal bleeding.~ Vigorous fundal massage was performed and the fundus was found to be firm. IV oxytocin was given. Examination of the vagina and perineum revealed a periurethral abrasion not requiring repair. Following the delivery, sponge, instrument and needle counts were correct. Mom and baby were both in stable condition in the labor suite. Vitals - Labs Vital Signs - I&O Vital Signs Date Time Temp Pulse Resp B/P (MAP) Pulse Ox O2 Delivery O2 Flow Rate FiO2 09/26/21 07:15 77 16 86/47 (60) 94 Room Air 09/26/21 07:00 84 16 93/54 (67) 95 Room Air 09/26/21 06:45 90 16 90/51 (64) 94 Room Air 09/26/21 06:30 77 16 90/55 (67) 97 Room Air 09/26/21 06:15 86 16 90/50 (63) 94 Room Air 09/26/21 06:00 83 16 92/51 (65) 94 Room Air 09/26/21 05:45 77 16 83/54 (64) 94 Room Air 09/26/21 04:30 89 16 83/50 (61) 97 Room Air 09/26/21 04:15 84 16 100/49 (66) 97 Room Air 09/26/21 04:00 80 16 87/53 (64) 95 Room Air 09/26/21 03:45 69 16 85/53 (64) 97 Room Air 09/26/21 03:30 79 16 93/56 (68) 97 Room Air 09/26/21 03:15 74 16 93/55 (68) 96 Room Air 09/26/21 03:00 37.0 77 16 92/50 (64) 96 Room Air 09/26/21 02:45 85 16 88/52 (64) 97 Room Air 09/26/21 02:40 84 16 96/53 (67) 97 Room Air 09/26/21 02:35 84 16 96/53 (67) 97 Room Air 09/26/21 02:30 65 16 94/52 (66) 96 Room Air 09/26/21 02:25 80 16 96/53 (67) 97 Room Air 09/26/21 02:20 75 16 96/54 (68) 97 Room Air 09/26/21 02:15 75 16 104/61 (75) 96 Room Air 09/26/21 02:10 91 16 98/58 (71) 97 Room Air 09/26/21 02:05 83 16 102/62 (75) 97 Room Air 09/26/21 02:00 72 16 100/61 (74) 97 Room Air 09/26/21 01:55 83 16 105/69 (81) 97 Room Air 09/26/21 01:50 83 16 114/68 (83) 98 Room Air 09/26/21 01:45 36.8 73 16 101/61 (74) 97 Room Air 09/26/21 01:40 75 16 105/60 (75) 97 Room Air 09/26/21 01:35 70 16 89/54 (66) 97 Room Air 09/26/21 01:30 76 18 98/54 (69) 97 Room Air 09/26/21 01:25 74 18 106/66 (79) 99 Room Air 09/26/21 01:20 88 18 111/68 (82) 99 Room Air 09/26/21 01:10 65 18 115/60 (78) 99 Room Air 09/25/21 23:30 36.9 83 18 97 Room Air 09/25/21 23:15 36.9 83 18 114/67 (83) 97 Room Air I & O 09/26/21 07:00 Intake Total 1000 ml Balance 1000 ml Labs Laboratory Tests 09/26/21 00:00: White Blood Count 11.3H, Red Blood Count 3.40L, Hemoglobin 10.8L, Hematocrit 32L , Mean Corpuscular Volume 94, Mean Corpuscular Hemoglobin 32, Mean Corpuscular Hemoglobin Concent 34, Red Cell Distribution Width 12.2, Platelet Count 182, Mean Platelet Volume 8.6L, Immature Granulocyte % (Auto) 0, Neutrophils (%) (Auto) 66, Lymphocytes (%) (Auto) 26, Monocytes (%) (Auto) 6, Eosinophils (%) (Auto) 1, Basophils (%) (Auto) 0, Neutrophils # (Auto) 7.5, Lymphocytes # (Auto) 2.9, Monocytes # (Auto) 0.7, Eosinophils # (Auto) 0.1, Basophils # (Auto) 0.0, Immature Granulocyte # (Auto) 0.0 THOMAS SHEETS MD Sep 26, 2021 09:07
--- NOTE | 2021-09-26 09:09 | History & Physical-OB ---
OB - Chief Complaint & HPI Date/Time Date of Admission: Date of Admission: Sep 26, 2021 at 00:43 Date seen by a Provider: Sep 26, 2021 Time Seen by a Provider: 08:33 Chief Complaint/History OB-Reason for Admission/Chief: Rupture of Membranes Hx : 3 Hx Para: 2 Expected Date of Delivery: Oct 17, 2021 Gestational Age in Weeks: 37 Gestational Age in Days: 0 Other Pt had spontaneous rupture of membranes at home at 36w6d, observed for a few hours with no cervical change, so pitocin was started this am, and she had rapid progression to complete dilation. Allergies and Home Medications Allergies Coded Allergies: latex (Verified Allergy, Unknown, 06/22/20) Patient Home Medication List Home Medication List Reviewed: No Fsz058/Iron Fumarate/FA/Dss ( 19 Tablet) 1 Each Tablet, 1 EACH PO DAILY, (Reported) Entered as Reported by: ALEXANDRU GODWIN on 04/05/202029 OB - History Hx of Present Care: Yes Obstetrical Complications: None Information Induced Hypertension: No Maternal Gestational Diabetes: No Hemorrhage: No Obstetrical History Hx : 3 Hx Para: 2 Hx # Term Pregnancies: 2 Hx # Pregnancies: 0 Number of Living Children: 2 Hx Multiple Gestation: No Hx Ectopic : No Hx Stillbirth: No Hx Complication: No Hx Induced Hypertens: No Hx Maternal Gestational Diabet: No Hx Hemorrhage: No Delivery History Hx Dystocia: No Hx Forceps Assisted Delivery: No Hx Vacuum Extraction Assisted: No Hx Placenta Abnormality: No Hx Distress: No Hx Large For Gestational Age I: No Hx Small for Gestational Age I: No Hx Section: No Hx Vaginal Delivery Post C-Sec: No Hx Blood Disorders: No Adverse Rxn to Tranfusion: No Patient Past Medical History previously healthy Social History/Family History 2nd Hand Smoke Exposure: Yes Immunizations Influenza Vaccine Up-to-Date: No; Not Current Hepatitis A: Yes Hepatitis B: Yes OB - Admission Exam Physical Exam Vitals: Vital Signs 09/26/21 09/26/21 03:00 07:15 Temp 37.0 Pulse 77 Resp 16 B/P (MAP) 86/47 (60) Pulse Ox 94 O2 Delivery Room Air HEENT: NCAT Cervical Dilatation: 10cm Effacement: 100% Station: +3 Membranes: Ruptured Decelerations: Variable Decelerations Labs Laboratory Tests Test 09/26/21 00:00 Range/Units White Blood Count 11.3 H 4.3-11.0 10^3/uL Red Blood Count 3.40 L 3.80-5.11 10^6/uL Hemoglobin 10.8 L 11.5-16.0 g/dL Hematocrit 32 L 35-52 % Mean Corpuscular Volume 94 80-99 fL Mean Corpuscular Hemoglobin 32 25-34 pg Mean Corpuscular Hemoglobin Concent 34 32-36 g/dL Red Cell Distribution Width 12.2 10.0-14.5 % Platelet Count 182 130-400 10^3/uL Mean Platelet Volume 8.6 L 9.0-12.2 fL Immature Granulocyte % (Auto) 0 % Neutrophils (%) (Auto) 66 42-75 % Lymphocytes (%) (Auto) 26 12-44 % Monocytes (%) (Auto) 6 0-12 % Eosinophils (%) (Auto) 1 0-10 % Basophils (%) (Auto) 0 0-10 % Neutrophils # (Auto) 7.5 1.8-7.8 10^3/uL Lymphocytes # (Auto) 2.9 1.0-4.0 10^3/uL Monocytes # (Auto) 0.7 0.0-1.0 10^3/uL Eosinophils # (Auto) 0.1 0.0-0.3 10^3/uL Basophils # (Auto) 0.0 0.0-0.1 10^3/uL Immature Granulocyte # (Auto) 0.0 0.0-0.1 10^3/uL OB - Assessment/Plan/Diagnosis Assessment Admission Dx prelabor rupture of membranes Precipitous labor after augmentation with pitocin GBS negative Admission Status: Inpatient Order (span 2 midnights) Reason for Inpatient Admission: Labor, delivery and course Plan Induction Method: per Pitocin Protocol THOMAS SHEETS MD Sep 26, 2021 09:09
[2021-09-26] MEDS ORDERED: BENZOCAINE/MENTHOL (DERMOPLAST) 56 ML CAN TP PRN (09:30)
[2021-09-26] MEDS ORDERED: CITRIC ACID/SOB CIT (BICITRA) 30 ML UDC ONE (11:00)
[2021-09-26] MEDS ORDERED: METOCLOPRAMIDE INJ 10 MG/2 ML (REGLAN) ONE (11:00)
[2021-09-26] MEDS ORDERED: FAMOTIDINE 20MG/2ML IV (PEPCID) ONE (11:01)
[2021-09-26] MEDS: IBUPROFEN 600 MG (MOTRIN) TAB PO PRN ×2 (12:13→17:13)
[2021-09-26] MEDS: WITCH HAZEL(TUCKS) 40 EA JAR TOP PRN ×2 (12:13→21:43)
[2021-09-26] MEDS ORDERED: ACETAMINOPHEN 500 MG TAB (TYLENOL) ONE (21:37)
[2021-09-26] MEDS: DOCUSATE SODIUM 100 MG (COLACE) CAP PO SCH (21:43)
[2021-09-26] MEDS: ACETAMINOPHEN 500 MG TAB (TYLENOL) PO PRN (21:44)
[2021-09-27 00:31] VITALS: BP 104/59
[2021-09-27] MEDS: IBUPROFEN 600 MG (MOTRIN) TAB PO PRN ×4 (00:32→18:30)
[2021-09-27 05:40] VITALS: BP 99/59
[2021-09-27 07:26] LABS: BASOPHILS % (AUTO) 0 % (0-10); EOSINOPHILS # (AUTO) 0.1 10^3/uL (0.0-0.3); EOSINOPHILS % (AUTO) 1 % (0-10); HEMATOCRIT 31 % (35-52); HEMOGLOBIN 10.3 g/dL (11.5-16.0); LYMPHOCYTES # (AUTO) 2.6 10^3/uL (1.0-4.0); LYMPHOCYTES % (AUTO) 27 % (12-44); MEAN CORPUSCULAR HEMOGLOBIN 32 pg (25-34); MEAN CORPUSCULAR HGB CONC 34 g/dL (32-36); MEAN CORPUSCULAR VOLUME 96 fL (80-99); MONOCYTES # (AUTO) 0.6 10^3/uL (0.0-1.0); MONOCYTES % (AUTO) 7 % (0-12); NEUTROPHILS # (AUTO) 6.2 10^3/uL (1.8-7.8); NEUTROPHILS % (AUTO) 64 % (42-75); PLATELET COUNT 167 10^3/uL (130-400); WHITE BLOOD COUNT 9.7 10^3/uL (4.3-11.0)
[2021-09-27 10:00] VITALS: BP 112/69
[2021-09-27] MEDS: DOCUSATE SODIUM 100 MG (COLACE) CAP PO SCH (10:01)
[2021-09-27] MEDS: ACETAMINOPHEN 500 MG TAB (TYLENOL) PO PRN ×2 (10:01→18:30)
[2021-09-27 13:00] VITALS: BP 110/70
[2021-09-27] MEDS ORDERED: FERR325T18 PO (13:31)
[2021-09-27] MEDS ORDERED: IBUP-844 PO (13:31)
--- NOTE | 2021-09-27 13:36 | Discharge Summary ---
Discharge Summary Hospital Course Hospital Course Date of Admission: Sep 26, 2021 at 00:43 Admission Diagnosis : Family Physician/Provider: Kwaku Martin MD Date of Discharge: 09/27/21 Discharge Diagnosis: prelabor rupture of membranes at 36w6d s/p spontaneous vaginal delivery at 37w0d asymptomatic acute blood loss anemia Hospital Course: Pt presented at 36w6d with spontaneous rupture of membranes, not in active labor, pitocin started and she had precipitous labor and delivery with no significant lacerations. Routine course. Labs and Pending Lab Test: Laboratory Tests 09/27/21 07:13: White Blood Count 9.7, Red Blood Count 3.20L, Hemoglobin 10.3L, Hematocrit 31L, Mean Corpuscular Volume 96, Mean Corpuscular Hemoglobin 32, Mean Corpuscular Hemoglobin Concent 34, Red Cell Distribution Width 12.3, Platelet Count 167, Mean Platelet Volume 9.0, Immature Granulocyte % (Auto) 0, Neutrophils (%) (Auto) 64, Lymphocytes (%) (Auto) 27, Monocytes (%) (Auto) 7, Eosinophils (%) (Auto) 1, Basophils (%) (Auto) 0, Neutrophils # (Auto) 6.2, Lymphocytes # (Auto) 2.6, Monocytes # (Auto) 0.6, Eosinophils # (Auto) 0.1, Basophils # (Auto) 0.0, Immature Granulocyte # (Auto) 0.0 Home Meds Active Ferrous Sulfate 325 Mg Tablet 325 Mg PO DAILY Ibu (Ibuprofen) 600 Mg Tablet 600 Mg PO Q6HR PRN Reported 19 Tablet (Ixi551/Iron Fumarate/FA/Dss) 1 Each Tablet 1 Each PO DAILY Assessment/Pt DC Instructions Follow up with Dr. Almendarez in 6 weeks for visit. Discharge Diet: No Restrictions Activity as Tolerated: Yes (avoid strenuous activity x 6 weeks) Discharge Physical Examination Allergies: Coded Allergies: latex (Verified Allergy, Unknown, 06/22/20) General Appearance: No Apparent Distress, WD/WN Respiratory: Lungs Clear, Normal Breath Sounds Cardiovascular: Regular Rate, Rhythm, No Murmur Extremity: No Pedal Edema Neurologic/Psychiatric: Alert, Normal Mood/Affect THOMAS SHEETS MD Sep 27, 2021 13:36
[2021-09-27] MEDS: WITCH HAZEL(TUCKS) 40 EA JAR TOP PRN (15:41)
[2021-09-27 18:15] VITALS: BP 121/66
[2021-09-27 18:45] VITALS: BP 121/66
== END 2021-09-27 18:45 | disposition home or self-care (01) | DRG 806 ==
LOC: WSo 22:53 → LDRP 23:45 → WSo 09-26 00:40 → LDRP 09-26 00:43
PROVIDERS: ADMIT Family Medicine; ATTEND Family Medicine
PROC: 10E0XZZ Delivery of Products of Conception, External Approach (ICD-10-PCS; principal; 2021-09-26)
DX: O60.14X0 Preterm labor third trimester with preterm delivery third trimester, not applicable or unspecified (principal); D62 Acute posthemorrhagic anemia; Z37.0 Single live birth; Z3A.36 36 weeks gestation of pregnancy; O62.3 Precipitate labor; O90.81 Anemia of the puerperium; O71.82 Other specified trauma to perineum and vulva; O76 Abnormality in fetal heart rate and rhythm complicating labor and delivery; Z91.040 Latex allergy status
CPT/HCPCS: 36415; 85025; 86850; 86900; 86901; 99212

== ENCOUNTER 2022-01-22 14:03 | Emergency (ER) | payer MEDICAID ==
[~2022-01-22] VITALS: Ht 160 cm; Wt 77.0 kg
[~2022-01-22 14:03] MED LIST changes: +FERR325T18 PO
[2022-01-22 14:24] LABS: BILIRUBIN,URINE NEGATIVE (NEGATIVE); CLARITY,URINE SL CLOUDY; COLOR,URINE YELLOW; GLUCOSE, URINE (UA) NEGATIVE (NEGATIVE); KETONES,URINE NEGATIVE (NEGATIVE); LEUKOCYTE ESTERASE ,URINE TRACE (NEGATIVE); NITRITE,URINE NEGATIVE (NEGATIVE); PROTEIN,URINE TRACE (NEGATIVE)
[2022-01-22 14:32] LABS: BACTERIA,URINE TRACE /HPF; RBC,URINE RARE /HPF
--- NOTE | 2022-01-22 15:00 | ED GI ---
General Chief Complaint: OB < 20 WEEKS Stated Complaint: APPROX 4 WKS PREG/VAG BLEEDING Nursing Triage Note: PT TO ED W/ C/O VAGINAL BLEEDING/CRAMPING ONSET YESTERDAY, WORSE TODAY. PT REPORTS SHE HAS NOT GONE THROUGH ANY PADS SHE REPORTS SHE'S "NOT USING ANYTHING". PT DOES REPORT PAIN WORSE WHEN SHE'S UP MOVING AROUNG. NO OTHER C/O VOICED. PT ALSO REPORTS SENT TO ED BY HER "DR'S OFFICE" FOR BLOOD WORK. (HUMBERTO MARTINI) History of Present Illness Date Seen by Provider: January 22, 2022 Time Seen by Provider: 14:10 Initial Comments 21-year-old female presents for related vaginal bleeding. Patient reports that her first episode of bleeding was yesterday morning. It occurs mainly when she is wiping, after going to the restroom. she is not wearing a pad and had very little discharge overnight. She reports the blood is brown to dark red. No active bright red bleeding. Her LMP was approximately 1422, however she is approximately 3 months and is breast-feeding. She has not been having regular cycles since her delivery. She was evaluated by Dr. Huerta in the last 10 days and had a positive HCG but no US or other labs were done. She has intermittent abdominal pain, has not taking any medications for the pain. She denies n/v and is taking a vitamin. Patient reports last intercourse 3 days ago. She spoke via social media to a nurse named Jayda that works with Dr. Huerta. She did not consult with Dr. Huerta but recommended she come here to have an HCG drawn and then she will have another one on 01/24/22 at her scheduled appointment. Timing/Duration: 24 Hours Severity/Quality: Mild Location: Generalized Abdomen Radiation: No Radiation Associated Symptoms: No Back Pain, No Fever/Chills, No Heartburn, No Naus ea/Vomiting (HUMBERTO MARTINI) Allergies and Home Medications Allergies Coded Allergies: latex (Verified Allergy, Unknown, 06/22/20) Patient Home Medication List Home Medication List Reviewed: Yes (HUMBERTO MARTINI) Ferrous Sulfate (Ferrous Sulfate) 325 Mg Tablet, 325 MG PO DAILY Prescribed by: THOMAS SHEETS on 09/27/21 1331 Ibuprofen (Ibu) 600 Mg Tablet, 600 MG PO Q6HR PRN for PAIN-MILD (1-4) Prescribed by: THOMAS SHEETS on 09/27/21 1331 Xus498/Iron Fumarate/FA/Dss ( 19 Tablet) 1 Each Tablet, 1 EACH PO DAILY, (Reported) Entered as Reported by: ALEXANDRU GODWIN on 04/05/202029 Review of Systems Review of Systems Constitutional: no symptoms reported, see HPI Genitourinary: See HPI, Discharge (dark brown) (HUMBERTO MARTINI) All Other Systems Reviewed Negative Unless Noted: Yes (HUMBERTO MARTINI) Past Ncnbiyk-Jloyvp-Fhuwqj Hx Immunizations Up To Date PED Vaccines UTD: Yes (HUMBERTO MARTINI) Seasonal Allergies Seasonal Allergies: Yes (HUMBERTO MARTINI) Past Medical History Surgeries: Yes (WISDOM TEETH EXTRACTION) Gallbladder, Tonsillectomy Respiratory: No Cardiac: No Neurological: No Headaches /Migraines : Yes Last Menstrual Period: Jan 01, 2022 Hx : 4 Hx Para: 3 Hx Total # of Abortions (Sp): 0 Genitourinary: No Gastrointestinal: No Musculoskeletal: No Endocrine: No HEENT: No Cancer: No Psychosocial: No Integumentary: No Blood Disorders: No Adverse Reaction/Blood Tranf: No (HUMBERTO MARTINI) Family Medical History Reviewed Nursing Family Hx (HUMBERTO MARTINI) Patient reports no known family medical history. Physical Exam Vital Signs Vital Signs - First Documented 01/22/22 14:04 Temp 36.6 Pulse 103 Resp 20 B/P (MAP) 106/74 (85) Pulse Ox 98 O2 Delivery Room Air (JULIA,PATTIE K DO) Vital Signs Capillary Refill : Less Than 3 Seconds (HUMBERTO MARTINI) Height/Weight/BMI Height: 5'2.00" Weight: 196lbs. 0oz. 88.241551lw; 30.00 BMI Method:Stated General Appearance: WD/WN, no apparent distress Respiratory: chest non-tender, lungs clear, normal breath sounds Cardiovascular: normal peripheral pulses, regular rate, rhythm Gastrointestinal: normal bowel sounds, soft; No rebound; tenderness (mild generalized) Extremities: normal range of motion, non-tender, normal inspection Neurologic/Psychiatric: no motor/sensory deficits, alert, normal mood/affect, oriented x 3 Skin: normal color, warm/dry (HUMBERTO MARTINI) Progress/Results/Core Measures Results/Orders Lab Results Laboratory Tests Test 01/22/22 14:19 01/22/22 15:03 Range/Units Urine Color YELLOW Urine Clarity SL CLOUDY Urine pH 6.0 5-9 Urine Specific [place] 1.025 H 1.016-1.022 Urine Protein TRACE H NEGATIVE Urine Glucose (UA) NEGATIVE NEGATIVE Urine Ketones NEGATIVE NEGATIVE Urine Nitrite NEGATIVE NEGATIVE Urine Bilirubin NEGATIVE NEGATIVE Urine Urobilinogen 0.2 < = 1.0 MG/DL Urine Leukocyte Esterase TRACE H NEGATIVE Urine RBC (Auto) 3+ H NEGATIVE Urine RBC RARE /HPF Urine WBC 2-5 /HPF Urine Squamous Epithelial Cells 2-5 /HPF Urine Crystals NONE /LPF Urine Bacteria TRACE /HPF Urine Casts NONE /LPF Urine Mucus NEGATIVE /LPF Urine Culture Indicated NO White Blood Count 8.0 4.3-11.0 10^3/uL Red Blood Count 3.63 L 3.80-5.11 10^6/uL Hemoglobin 11.7 11.5-16.0 g/dL Hematocrit 34 L 35-52 % Mean Corpuscular Volume 95 80-99 fL Mean Corpuscular Hemoglobin 32 25-34 pg Mean Corpuscular Hemoglobin Concent 34 32-36 g/dL Red Cell Distribution Width 11.9 10.0-14.5 % Platelet Count 230 130-400 10^3/uL Mean Platelet Volume 8.2 L 9.0-12.2 fL Immature Granulocyte % (Auto) 0 % Neutrophils (%) (Auto) 57 42-75 % Lymphocytes (%) (Auto) 32 12-44 % Monocytes (%) (Auto) 8 0-12 % Eosinophils (%) (Auto) 3 0-10 % Basophils (%) (Auto) 0 0-10 % Neutrophils # (Auto) 4.5 1.8-7.8 X 10^3 Lymphocytes # (Auto) 2.6 1.0-4.0 X 10^3 Monocytes # (Auto) 0.6 0.0-1.0 X 10^3 Eosinophils # (Auto) 0.2 0.0-0.3 10^3/uL Basophils # (Auto) 0.0 0.0-0.1 10^3/uL Immature Granulocyte # (Auto) 0.0 0.0-0.1 10^3/uL Sodium Level 143 135-145 MMOL/L Potassium Level 3.8 3.6-5.0 MMOL/L Chloride Level 106 98-107 MMOL/L Carbon Dioxide Level 23 21-32 MMOL/L Anion Gap 14 5-14 MMOL/L Blood Urea Nitrogen 11 7-18 MG/DL Creatinine 0.70 0.60-1.30 MG/DL Estimat Glomerular Filtration Rate 126 BUN/Creatinine Ratio 16 Glucose Level 98 70-105 MG/DL Calcium Level 9.2 8.5-10.1 MG/DL Corrected Calcium 9.1 8.5-10.1 MG/DL Total Bilirubin 0.4 0.1-1.0 MG/DL Aspartate Amino Transf (AST/SGOT) 13 5-34 U/L Alanine Aminotransferase (ALT/SGPT) 12 0-55 U/L Alkaline Phosphatase 62 40-136 U/L Total Protein 6.9 6.4-8.2 GM/DL Albumin 4.1 3.2-4.5 GM/DL Human Chorionic Gonadotropin, Quant 1740 H <5 MIU/ML (PATTIE DUMONT DO) Vital Signs/I&O 01/22/22 01/22/22 14:04 15:50 Temp 36.6 36.5 Pulse 103 81 Resp 20 18 B/P (MAP) 106/74 (85) 106/70 Pulse Ox 98 99 O2 Delivery Room Air (PATTIE DUMONT DO) Blood Pressure Mean: 85 Progress Progress Note : Time: 14:10 Progress Note patient agreeable to labs and monitoring. 1500 Lab pending for quant HCG. 1530 Quant HCG is 1740, does not meet criteria of HCG 2,500 or > for US prior to 14 weeks. Patient has minimal abdominal discomfort. No vaginal bleeding through ED visit. Discharge instructions and return precautions reviewed with the patient. (HUMBERTO MARTINI) Departure Impression Primary Impression: Spotting affecting in first trimester Disposition: 01 HOME, SELF-CARE Condition: Improved Departure-Patient Inst. Decision time for Depature: 15:40 (HUMBERTO MARTINI) Referrals: SEBASTIÁN HUERTA MD (PCP) Primary Care Physician RICK MCLEAN MD (Family) Primary Care Physician Patient Instructions: Bleeding in Early (DC) Add. Discharge Instructions: Call Dr. Huerta's office tomorrow, if symptoms are not improving or worsen. Vaginal Rest. Increase water intake. Continue Vitamins. Return to the Emergency Dept for new, urgent health care needs. Especially if increased abdominal pain, change/increase in amount of vaginal bleeding, or new concerns. All discharge instructions reviewed with patient and/or family. Voiced understanding. ATTENDING PHYSICIAN NOTE: I WAS PHYSICALLY PRESENT ER PHYSICIAN, BUT I WAS NOT INVOLVED IN ANY DECISION MAKING OR ANY CARE OF THIS PATIENT. (PATTIE DUMONT DO) Copy Copies To 1: SEBASTIÁN HUERTA MD, AMY ARNP January 22, 2022 15:00 PATTIE DUMONT DO January 22, 2022 17:27
[2022-01-22 15:08] LABS: BASOPHILS % (AUTO) 0 % (0-10); EOSINOPHILS # (AUTO) 0.2 10^3/uL (0.0-0.3); EOSINOPHILS % (AUTO) 3 % (0-10); HEMATOCRIT 34 % (35-52); HEMOGLOBIN 11.7 g/dL (11.5-16.0); LYMPHOCYTES # (AUTO) 2.6 X 10^3 (1.0-4.0); LYMPHOCYTES % (AUTO) 32 % (12-44); MEAN CORPUSCULAR HEMOGLOBIN 32 pg (25-34); MEAN CORPUSCULAR HGB CONC 34 g/dL (32-36); MEAN CORPUSCULAR VOLUME 95 fL (80-99); MEAN PLATELET VOLUME 8.2 fL (9.0-12.2); MONOCYTES # (AUTO) 0.6 X 10^3 (0.0-1.0); MONOCYTES % (AUTO) 8 % (0-12); NEUTROPHILS # (AUTO) 4.5 X 10^3 (1.8-7.8); NEUTROPHILS % (AUTO) 57 % (42-75); PLATELET COUNT 230 10^3/uL (130-400)
[2022-01-22 15:26] LABS: ALBUMIN 4.1 GM/DL (3.2-4.5); BILIRUBIN,TOTAL 0.4 MG/DL (0.1-1.0); CALCIUM 9.2 MG/DL (8.5-10.1); CREATININE SERUM 0.7 MG/DL (0.60-1.30); POTASSIUM 3.8 MMOL/L (3.6-5.0); TOTAL PROTEIN 6.9 GM/DL (6.4-8.2)
[2022-01-22 15:50] VITALS: BP 106/70
[2022-01-24] MEDS ORDERED: IBUP-844 PO (16:17)
== END 2022-01-22 15:50 | disposition home or self-care (01) ==
LOC: EDUNIT# 14:03 → ER 14:05
DX: O26.851 Spotting complicating pregnancy, first trimester (principal); Z3A.01 Less than 8 weeks gestation of pregnancy
CPT/HCPCS: 36415; 80053; 81000; 84702; 84703; 85025; 99282

== ENCOUNTER 2022-01-24 13:15 | Observation (INO) | payer MEDICAID ==
[2022-01-24] VITALS (12 sets, daily range): BP systolic 94–118; BP diastolic 51–76
[~2022-01-24 13:15] MED LIST changes: -OXYC-199 PO
--- NOTE | 2022-01-24 14:18 | History & Physical ---
History and Physical Date Seen by Provider: January 24, 2022 Time Seen by Provider: 16:03 Patient is a 27-year-old 4 para 3 vaginal delivery [address] Gatica in [place] Dr. Gatica called me to transfer this patient from [place] to [facility] secondary to suspicion for a ruptured ectopic . Patient had a quantitative hCG on Sunday of 1740. That level had dropped to 6 1685 by today. Patient was having some abdominal pain ultrasound demonstrated findings consistent with a ruptured ectopic. On my arrival patient is undergoing transvaginal ultrasound which demonstrates a large amount of free fluid and large amount of Complex mass filling the right adnexa and the cul-de-sac consistent with blood clot. Uterus is midplane and obviously empty there is no intrauterine . The right ovary is seen and appears to be surrounded by a complex echogenic material consistent with hemoperitoneum with extensive clot Patient is complaining of increasing pain rating 9-1/2 to 10 out of 10 Allergies are to latex Medications are vitamins MedicalHistory is negative Social history patient denies tobacco drug and alcohol use Surgical history patient had tonsils removed and gallbladder removed Family history is noncontributory Physical exam General the patient is a well-developed well-nourished white female she does appear to be in fairly significant distress with abdominal pain HEENT exam is normal Neck is supple no lymphadenopathy no thyromegaly Abdomen isMildly distended and is Acutely tender. There is guarding there is rebound and there is rigidity Extremities show no clubbing or cyanosis. There is no Homans' sign. Pelvic exam is deferred Bedside ultrasound Was being performed transvaginally on my arrival. 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 Right ovary was seen and marked the hemoperitoneum and blood clot and appeared normal The uterus was midplane to slightly anteverted surrounded by blood and clot there was a large amount of fluid freely in the cul-de-sac Endometrial echo was normal in appearance and the uterine cavity was empty Laboratory Tests Test 01/24/22 15:09 Range/Units White Blood Count 7.8 4.3-11.0 10^3/uL Red Blood Count 3.22 L 3.80-5.11 10^6/uL Hemoglobin 10.5 L 11.5-16.0 g/dL Hematocrit 31 L 35-52 % Mean Corpuscular Volume 95 80-99 fL Mean Corpuscular Hemoglobin 33 25-34 pg Mean Corpuscular Hemoglobin Concent 34 32-36 g/dL Red Cell Distribution Width 11.6 10.0-14.5 % Platelet Count 229 130-400 10^3/uL Mean Platelet Volume 8.2 L 9.0-12.2 fL Immature Granulocyte % (Auto) 0 % Neutrophils (%) (Auto) 56 42-75 % Lymphocytes (%) (Auto) 34 12-44 % Monocytes (%) (Auto) 8 0-12 % Eosinophils (%) (Auto) 2 0-10 % Basophils (%) (Auto) 1 0-10 % Neutrophils # (Auto) 4.4 1.8-7.8 10^3/uL Lymphocytes # (Auto) 2.6 1.0-4.0 10^3/uL Monocytes # (Auto) 0.6 0.0-1.0 10^3/uL Eosinophils # (Auto) 0.1 0.0-0.3 10^3/uL Basophils # (Auto) 0.0 0.0-0.1 10^3/uL Immature Granulocyte # (Auto) 0.0 0.0-0.1 10^3/uL Assessment and plan Possible ectopic with decreasing hCG over 2 days from Sunday till Sunday. Ultrasound demonstrates an empty uterus with increased free fluid and suspicion for right ectopic . I had discussion with the patient and her family regarding her presentation her findingsAnd the likely diagnosis being ruptured ectopic versus other which could include a ruptured hemorrhagic cyst. With that following quantitative hCG she would obviously have an abnormal located somewhere again this is most consistent with an ectopic . She does have an acute abdomen and we will proceed emergently to the operating room forEvaluation and management We discussed surgery risk complications recovery and follow-up and the pos sibility of removal of a fallopian tube and/or an ovary as well as other indicated procedures depending on the intraoperative findings. All the patient's questions were answered and she is ready to proceed Likely ruptured right ectopic Extensive hemoperitoneum Allergies and Home Medications Allergies Coded Allergies: latex (Verified Allergy, Unknown, 06/22/20) Patient Home Medication List Home Medication List Reviewed: No Ferrous Sulfate (Ferrous Sulfate) 325 Mg Tablet, 325 MG PO DAILY Prescribed by: THOMAS SHEETS on 09/27/21 1331 Ibuprofen (Ibu) 600 Mg Tablet, 600 MG PO Q6HR PRN for PAIN-MILD (1-4) Prescribed by: THOMAS SHEETS on 09/27/21 1331 Sno189/Iron Fumarate/FA/Dss ( 19 Tablet) 1 Each Tablet, 1 EACH PO DAILY, (Reported) Entered as Reported by: ALEXANDRU GODWIN on 04/05/202029 LUÍS MONTILLA MD January 24, 2022 14:18
[2022-01-24 15:27] LABS: BASOPHILS % (AUTO) 1 % (0-10); EOSINOPHILS # (AUTO) 0.1 10^3/uL (0.0-0.3); EOSINOPHILS % (AUTO) 2 % (0-10); HEMATOCRIT 31 % (35-52); HEMOGLOBIN 10.5 g/dL (11.5-16.0); LYMPHOCYTES # (AUTO) 2.6 10^3/uL (1.0-4.0); LYMPHOCYTES % (AUTO) 34 % (12-44); MEAN CORPUSCULAR HEMOGLOBIN 33 pg (25-34); MEAN CORPUSCULAR HGB CONC 34 g/dL (32-36); MEAN CORPUSCULAR VOLUME 95 fL (80-99); MEAN PLATELET VOLUME 8.2 fL (9.0-12.2); MONOCYTES # (AUTO) 0.6 10^3/uL (0.0-1.0); MONOCYTES % (AUTO) 8 % (0-12); NEUTROPHILS # (AUTO) 4.4 10^3/uL (1.8-7.8); NEUTROPHILS % (AUTO) 56 % (42-75); PLATELET COUNT 229 10^3/uL (130-400); WHITE BLOOD COUNT 7.8 10^3/uL (4.3-11.0)
[2022-01-24] MEDS ORDERED: proPOfol 200 MG/20 ML (DIPRIVAN) VIAL IV ONE (16:05)
[2022-01-24] MEDS ORDERED: ONDANSETRON 4 MG/2 ML (SDV) Z0FRAN ONE ×2 (16:05→17:59)
[2022-01-24] MEDS ORDERED: fentaNYL INJ 100 MCG/2 ML AMP ONE ×2 (16:05→16:09)
[2022-01-24] MEDS ORDERED: LIDOCAINE PF 2% 5 ML (XYLOCAINE) VIAL ONE (16:05)
[2022-01-24] MEDS ORDERED: SEVOFLURANE (ULTANE) 15 ML INHAL SOLN ONE ×2 (16:05→17:32)
[2022-01-24] MEDS ORDERED: MIDAZOLAM 2 MG/2 ML (VERSED) VIAL ONE (16:06)
[2022-01-24] MEDS ORDERED: LIDOCAINE/EPI 2% 1:100,00 (XYLOCAINE) 20 ML VIAL ONE (16:08)
[2022-01-24] MEDS ORDERED: ONDANSETRON 4 MG/2 ML (SDV) Z0FRAN IVP PRN ×2 (16:15→18:00)
[2022-01-24] MEDS ORDERED: fentaNYL INJ 100 MCG/2 ML AMP IVP PRN (16:15)
[2022-01-24] MEDS ORDERED: KETOROLAC 30 MG/ML VIAL IVP ONE (16:15)
[2022-01-24] MEDS ORDERED: ceFAZolin INJECTION 1,000 MG in NS (IVPB) 50 ML IV NR (16:15)
[2022-01-24] MEDS ORDERED: fentaNYL INJ 100 MCG/2 ML AMP IVP ONE (16:15)
[2022-01-24] MEDS ORDERED: D5 LR IV SOLUTION 1,000 ML IV SCH (16:15)
[2022-01-24] MEDS ORDERED: IBUP-844 PO (16:17)
[2022-01-24] MEDS ORDERED: OXYC-199 PO (16:17)
--- NOTE | 2022-01-24 16:21 | Discharge Inst-Surgical ---
Discharge Inst-Surgical Depart Medication/Instructions New, Converted or Re-Newed RX: Transmitted to Pharmacy Consults/Follow Up Orders & Referrals Follow Up Appt: Call to make follow up appt. for patient in 1 weeks. Activity: Rest for 24 hours, than as tolerated. Wound Care: May remove Band-Aid tomorrow. Replace as desired. Keep incisions clean and dry. Wash daily with soap and water. Diet: As tolerated-Clear Liquids only if nauseated. Tomorrow, may shower or tub bathe as desired. No driving for 24 hours, no alcoholic beverages for 24 hours, and nothing per vagina (no tampons, douching, or intercoarse) for 2 weeks. Patient to return to the clinic as soon as possible for: Temperature greater than 101F, Severe Pain, Foul discharge from incision or vagina, Excessive Bleeding (more than a period). Activity Activity as Tolerated: No Diet Discharge Diet: No Restrictions LUÍS MONTILLA MD January 24, 2022 16:21
[2022-01-24] MEDS ORDERED: LACTATED RINGERS 1,000 ML IV PRN (16:30)
[2022-01-24] MEDS ORDERED: ceFAZolin INJECTION 1,000 MG ONE (16:39)
--- NOTE | 2022-01-24 16:45 | Diagnostic Imaging Report ---
INDICATION: Ectopic . FINDINGS: The uterus measures 9.4 x 4.8 x 6.6 cm. Endometrium is 7 mm in thickness. No intrauterine gestational sac is identified. No myometrial mass is detected. Left ovary measures 3.5 x 2.0 x 2.2 cm and contains small follicles. There is blood flow present. There is a complex-appearing mass in the right adnexa. A normal-appearing right ovary was not visualized. No discrete gestational sac in the adnexa seen. There is a large amount of complex free fluid, suggestive of hemorrhage. IMPRESSION: Complex right adnexal mass with large amount of complex free pelvic fluid. In a patient with a positive test, features are concerning for right adnexal with hemorrhage. No intrauterine gestational sac is identified. Dictated by: Dictated on workstation # [id number]
[2022-01-24] MEDS ORDERED: NEOSTIGMINE 3 MG/3 ML VIAL ONE (17:11)
[2022-01-24] MEDS ORDERED: ROCURONIUM 50 MG/5 ML (ZEMURON) VIAL IV ONE (17:11)
[2022-01-24] MEDS ORDERED: GLYCOPYRROLATE 0.2 MG/ML (ROBINUL) 2 ML VIAL ONE (17:11)
[2022-01-24] MEDS ORDERED: KETOROLAC 30 MG/ML VIAL ONE (17:28)
[2022-01-24] MEDS ORDERED: HYDROmorphone 2 MG/ML VIAL (DILAUDID) ONE (17:30)
[2022-01-24] MEDS ORDERED: HYDROmorphone 2 MG/ML VIAL (DILAUDID) IV ONE (18:00)
[2022-01-24] MEDS: oxyCODONE/APAP 5/325MG (PERCOCET 5) TABLET PO PRN (19:49)
[2022-01-24] MEDS ORDERED: CHLORASEPTIC LOZENGE MM ONE (19:52)
[2022-01-24] MEDS ORDERED: CHLORASEPTIC LOZENGE MM PRN (20:00)
[2022-01-24] MEDS: D5 LR IV SOLUTION 1,000 ML IV SCH (21:33)
[2022-01-25] MEDS: oxyCODONE/APAP 5/325MG (PERCOCET 5) TABLET PO PRN ×2 (00:24→07:01)
[2022-01-25] MEDS: D5 LR IV SOLUTION 1,000 ML IV SCH (01:57)
[2022-01-25 03:00] VITALS: BP 98/57
--- NOTE | 2022-01-25 08:23 | Progress Note ---
Standard Progress Note Progress Notes/Assess & Plan Date Seen by a Provider: January 25, 2022 Time Seen by a Provider: 08:22 Progress/Assessment & Plan This patient is without complaint. She is ambulating, voiding, tolerating oral intake well and has good pain control. Vital Signs Date Time Temp Pulse Resp B/P (MAP) Pulse Ox O2 Delivery O2 Flow Rate FiO2 01/25/22 03:00 36.2 54 18 98/57 (71) 97 Room Air 01/24/22 23:05 36.9 62 18 97/56 (70) 98 Room Air 01/24/22 19:49 36.7 63 18 94/51 (65) 99 Room Air 01/24/22 18:35 36.6 69 18 98/57 (71) 99 Room Air 01/24/22 18:30 36.2 18 104/62 (76) 97 Room Air 01/24/22 18:30 Room Air 01/24/22 18:25 Room Air 01/24/22 18:20 18 98/57 (71) 97 Room Air 01/24/22 18:14 Room Air 01/24/22 18:10 18 101/60 (74) 100 Room Air 01/24/22 18:08 OxyMask 3 01/24/22 18:00 18 98/62 (74) 100 OxyMask 3 01/24/22 17:55 OxyMask 6 01/24/22 17:50 18 104/76 (85) 100 OxyMask 6 01/24/22 17:48 18 105/72 (83) 100 OxyMask 6 01/24/22 17:43 36.4 16 101/68 (79) 100 OxyMask 6 01/24/22 17:43 OxyMask 6 01/24/22 15:50 118/64 (82) 01/24/22 14:32 36.7 86 18 108/63 (78) 99 Room Air I & O 01/25/22 07:00 Intake Total 1610 ml Output Total 100 ml Balance 1510 ml Vital signs are stable. Patient is afebrile. The abdomen is benign. Extremities show no clubbing or cyanosis. There is no Homans' sign. Assessment and plan Postoperative day #1 status post laparoscopic right salpingectomy for ruptured ectopic as well as incidental appendectomy due to abnormal appearing appendix. Patient is recovering well and will be discharged home with follow-up in clinic Final Diagnosis Ruptured right ectopic LUÍS MONTILLA MD January 25, 2022 8:23 am
[2022-01-25 08:34] VITALS: BP 91/52
--- NOTE | 2022-01-25 13:59 | Anesthesia-General Post-Op ---
General Patient Condition Mental Status/LOC: Same as Preop Cardiovascular: Satisfactory Nausea/Vomiting: Absent Respiratory: Satisfactory Pain: Controlled Complications: Absent Post Op Complications Complications None Follow Up Care/Instructions Patient Instructions None needed. Anesthesia/Patient Condition Patient Condition Patient is doing well, no complaints, stable vital signs, no apparent adverse anesthesia problems. No complications reported per nursing. MICHAEL ALICEA CRNA January 25, 2022 13:59
--- NOTE | 2022-01-26 02:12 | OPERATIVE REPORT ---
DATE OF SERVICE: 01/24/2022 PREOPERATIVE DIAGNOSIS: Acute abdomen with likely ruptured right fallopian tube . POSTOPERATIVE DIAGNOSES: Acute abdomen with ruptured right fallopian tube as well as abnormal-appearing appendix. OPERATIVE PROCEDURE: Laparoscopic treatment of a ruptured ectopic via salpingectomy as well as laparoscopic appendectomy. OPERATIVE DESCRIPTION: With the patient in the supine position under satisfactory general anesthesia, she was repositioned in the dorsal lithotomy position in the [facility] and prepped and draped in the usual fashion for abdominal and vaginal surgery. Weighted speculum placed in the posterior fornix of vagina. Cervix was grasped anteriorly with single tooth tenaculum. Uterus was sounded to 11 cm. The cervix was then serially dilated with Miko dilators to accommodate uterine manipulator, which was placed and the bulb filled with 4 mL of air. The tenaculum and speculum were removed and the patient brought in low dorsal lithotomy position. Dean catheter was placed in the urinary bladder. A 5 mm incision was made in the patient's left upper quadrant. Veress needle was placed through that incision, correct placement was confirmed with a water drop test and the abdomen was insufflated with 2.4 liters of carbon dioxide. The Veress needle was removed and a 5 mm Optiview laparoscopic port was placed. Abdominal wall was transilluminated and ports of 12 mm and 5 mm were placed infraumbilically and suprapubically through incisions of those sizes. The patient was placed in Trendelenburg allowing the bowel was filled partially above the pelvis. It was extensive hemoperitoneum with a large amount of blood filling the pelvis covering the loops of bowel and pulling above the liver under the dome of the diaphragm. The hemoperitoneum was evacuated using a 1 cm aspiration wand with removal of over 500 mL of blood, clot and debris. With that done, the pelvis was irrigated. It was obvious that there was a large right ectopic involving the distal half of the right fallopian tube. There was a large amount of clot extruding from the fimbriated end of the fallopian tube. This was evacuated out and then an effort was made to milk the ectopic from the end of the tube. This was unsuccessful and with obvious distortion of the tube, decision was made to go ahead with partial right salpingectomy. Using the Endo-SHITAL, that was placed across the mesosalpinx from the distal half of the fallopian tube and then that instrument was fired, severing the mesosalpinx. The tube was still attached at its midportion. A second firing of the Endo-SHITAL severed the fallopian tube from its attachment near approximately proximal third of the fallopian tube remaining attached to the uterus and salvaging the ovary. There was some bleeding from the staple lines. This was touched with electrocautery to affect hemostasis. Fallopian tube was placed in an Endobag and brought out through the umbilical port and sent to pathology for permanent section. The pelvis was irrigated and examined for hemostasis. There was still some pulsatile bleeding along with the staple lines. This was touched with electrocautery to effect complete hemostasis. With hemostasis assured, the pelvis was irrigated and examined. There was no abnormal pathology in the pelvis other than maybe endometriosis. The left fallopian tube was seemed to be slightly clubbed on the end, but was otherwise normal as was the ovary. The right ovary was normal as well. Laparoscope was rotated. The appendix was identified. It was a markedly distorted, enlarged appendix, densely involved adhesions. These adhesions were taken free and decision was made to go ahead with appendectomy. The mesoappendix was perforated close at the base of appendix, an Endo-SHITAL was placed across the base of appendix and fired and then a second firing of the Endo-SHITAL across the mesoappendix, ____ from its attachments to allow for it to be removed through the umbilical port also through an Endobag. Tissue was sent to pathology for permanent section. The stump of the pelvis was copiously irrigated, the stump of the appendix was copiously irrigated and then several drops of Betadine solution were placed on the stump of the appendix. With sponge and needle counts correct, hemostasis assured and no remaining abnormal pathology, the procedure was terminated. The operative instruments were removed under direct vision as were the ports. The abdomen was evacuated of insufflating gas in the process. The skin incisions were closed with nylon sutures after closing the fascia at the infraumbilical incision with a [id number] suture of 2-0 Vicryl. Sponge and needle counts were correct. Blood loss was around 500 to 600 mL including the 500 mL evacuation of hemoperitoneum. Speculum was replaced in the vagina after first removing the uterine manipulator after draining the bulb. The cervix was hemostatic except for one of the puncture sites from the tenaculum. This was touched with silver nitrate to effect complete hemostasis. With hemostasis now complete and assured, sponge and needle counts were again correct. The procedure was terminated. The patient was uneventfully awakened from her general anesthesia and transferred to the recovery room in stable condition with plans for discharge home PAR. CC: Dr. Gatica in [place] -- requested, unable to deliver. Job ID: [id number] DocumentID: [id number] Dictated Date: 01/25/2022 14:24:13 Assembly Inspector Helper Date: 01/25/2022 21:24:54 Dictated By: LUÍS MONTILLA MD
== END 2022-01-25 10:20 | disposition home or self-care (01) ==
LOC: WS 13:51
PROVIDERS: ADMIT Obstetrics & Gynecology; ATTEND Obstetrics & Gynecology
DX: O00.101 Right tubal pregnancy without intrauterine pregnancy (principal); K38.0 Hyperplasia of appendix; F17.290 Nicotine dependence, other tobacco product, uncomplicated
CPT/HCPCS: 36415; 76801; 76817; 84702; 85025; 86850; 86900; 86901

== ENCOUNTER → 2022-01-24 | Outpatient (CLI) | payer MEDICAID ==
[~2022-01-24] MED LIST changes: +OXYC-199 PO
[2022-01-24 12:36] LABS: BASOPHILS # (AUTO) 0.1 10^3/uL (0.0-0.1); BASOPHILS % (AUTO) 1 % (0-10); EOSINOPHILS # (AUTO) 0.2 10^3/uL (0.0-0.3); EOSINOPHILS % (AUTO) 2 % (0-10); HEMATOCRIT 32 % (35-52); HEMOGLOBIN 10.9 g/dL (11.5-16.0); LYMPHOCYTES # (AUTO) 2.4 10^3/uL (1.0-4.0); LYMPHOCYTES % (AUTO) 33 % (12-44); MEAN CORPUSCULAR HEMOGLOBIN 32 pg (25-34); MEAN CORPUSCULAR HGB CONC 34 g/dL (32-36); MEAN CORPUSCULAR VOLUME 94 fL (80-99); MONOCYTES # (AUTO) 0.5 10^3/uL (0.0-1.0); MONOCYTES % (AUTO) 7 % (0-12); NEUTROPHILS # (AUTO) 4.1 10^3/uL (1.8-7.8); NEUTROPHILS % (AUTO) 57 % (42-75); PLATELET COUNT 209 10^3/uL (130-400); WHITE BLOOD COUNT 7.3 10^3/uL (4.3-11.0)
== END ==
LOC: LAB FS 12:14
PROVIDERS: ATTEND Family Medicine
DX: O46.91 Antepartum hemorrhage, unspecified, first trimester (principal); Z3A.00 Weeks of gestation of pregnancy not specified
CPT/HCPCS: 36415; 84702; 85025

== ENCOUNTER 2022-01-27 11:11 | Observation (INO) | payer MEDICAID ==
[~2022-01-27] VITALS: Ht 160 cm; Wt 78.0 kg
[~2022-01-27 11:11] MED LIST changes: +OXYC-199 PO
[2022-01-27 11:58] LABS: BASOPHILS # (AUTO) 0.1 10^3/uL (0.0-0.1); BASOPHILS % (AUTO) 1 % (0-10); EOSINOPHILS # (AUTO) 0.1 10^3/uL (0.0-0.3); EOSINOPHILS % (AUTO) 2 % (0-10); HEMATOCRIT 32 % (35-52); HEMOGLOBIN 10.7 g/dL (11.5-16.0); LYMPHOCYTES # (AUTO) 2.7 10^3/uL (1.0-4.0); LYMPHOCYTES % (AUTO) 40 % (12-44); MEAN CORPUSCULAR HEMOGLOBIN 32 pg (25-34); MEAN CORPUSCULAR HGB CONC 34 g/dL (32-36); MEAN CORPUSCULAR VOLUME 95 fL (80-99); MEAN PLATELET VOLUME 8.1 fL (9.0-12.2); MONOCYTES # (AUTO) 0.4 10^3/uL (0.0-1.0); MONOCYTES % (AUTO) 6 % (0-12); NEUTROPHILS # (AUTO) 3.6 10^3/uL (1.8-7.8); NEUTROPHILS % (AUTO) 52 % (42-75); PLATELET COUNT 283 10^3/uL (130-400); WHITE BLOOD COUNT 6.9 10^3/uL (4.3-11.0)
[2022-01-27 11:59] LABS: BILIRUBIN,URINE NEGATIVE (NEGATIVE); CLARITY,URINE CLEAR; COLOR,URINE YELLOW; GLUCOSE, URINE (UA) NEGATIVE (NEGATIVE); KETONES,URINE NEGATIVE (NEGATIVE); LEUKOCYTE ESTERASE ,URINE NEGATIVE (NEGATIVE); NITRITE,URINE NEGATIVE (NEGATIVE); PROTEIN,URINE NEGATIVE (NEGATIVE)
[2022-01-27 12:06] LABS: BACTERIA,URINE NEGATIVE /HPF; SQUAMOUS EPITHELIAL CELL,UR RARE /HPF
[2022-01-27 12:12] LABS: ALBUMIN 3.9 GM/DL (3.2-4.5)
[2022-01-27 12:13] LABS: AMPHETAMINE SCREEN, URINE NEGATIVE (NEGATIVE); BARBITURATE SCREEN URINE NEGATIVE (NEGATIVE); BENZODIAZEPINES SCREEN URINE NEGATIVE (NEGATIVE); CANNABINOID SCREEN, URINE NEGATIVE (NEGATIVE); CHLORIDE 105 MMOL/L (98-107); COCAINE SCREEN URINE NEGATIVE (NEGATIVE); METHADONE STAT NEGATIVE (NEGATIVE); OPIATE SCREEN URINE NEGATIVE (NEGATIVE); OXYCODONE STAT NEGATIVE (NEGATIVE); POTASSIUM 3.7 MMOL/L (3.6-5.0); PROPOXYPHENE STAT NEGATIVE (NEGATIVE); SODIUM 142 MMOL/L (135-145); TRICYCLIC ANTIDEPRESSANTS SCRE NEGATIVE (NEGATIVE)
[2022-01-27 12:15] LABS: GLUCOSE 75 MG/DL (70-105); INR 0.9 (0.8-1.4); PROTHROMBIN TIME PATIENT 12.6 SEC (12.2-14.7); TOTAL PROTEIN 6.8 GM/DL (6.4-8.2)
[2022-01-27 12:16] LABS: CARBON DIOXIDE 26 MMOL/L (21-32)
[2022-01-27 12:17] LABS: BILIRUBIN,TOTAL 0.2 MG/DL (0.1-1.0)
[2022-01-27 12:18] LABS: ALKALINE PHOSPHATASE 86 U/L (40-136)
[2022-01-27 12:19] LABS: CREATININE SERUM 0.64 MG/DL (0.60-1.30); GFR ESTIMATED 129
[2022-01-27 12:20] LABS: BUN/CREATININE RATIO 11
[2022-01-27 12:22] LABS: ALANINE AMINOTRANSFERASE 147 U/L (0-55); MAGNESIUM 2.2 MG/DL (1.6-2.4)
[2022-01-27 12:23] LABS: CREATINE KINASE 63 U/L (29-168); LIPASE 17 U/L (8-78)
[2022-01-27 12:30] LABS: CREATINE KINASE MB 0.2 NG/ML (<6.6)
[2022-01-27] MEDS ORDERED: CATHETER FLUSH 10 ML SYR IV PRN (12:30)
[2022-01-27] MEDS ORDERED: NS 100 ML (IVPB) BAG IV ONE (12:30)
[2022-01-27] MEDS ORDERED: HOLD METFORMIN - RECEIVED CONTRAST 20 ML VIAL IV SCH (12:30)
[2022-01-27] MEDS ORDERED: IOHEXOL 350 MG/ML 100 ML (OMNIPAQUE 350) VIAL IV ONE (12:30)
--- NOTE | 2022-01-27 12:44 | Diagnostic Imaging Report ---
INDICATION: Dyspnea. Frontal chest obtained at 12:18 p.m. FINDINGS: Heart and mediastinal silhouette are normal in appearance. The lungs are clear. There is no pneumothorax or pleural fluid. IMPRESSION: Negative chest. Dictated by: Dictated on workstation # [id number]
--- NOTE | 2022-01-27 12:47 | ED General ---
General Chief Complaint: General Problems/Pain Stated Complaint: BLOATED - VAGINAL BLEEDING - CHEST PRESSURE - SOA Nursing Triage Note: pt ambulatory to room. pt states she was transferred here from [facility] on sunday and had her right fallopian tube and appendix removed. pt states that yesterday she began having chest pressure, bloating, and vaginal bleeding. pt states she has been bleeding through one pad an hour. pt states her right side of stomach felt hard last night when this all started happening. pt states she called her doctor yesterday and they advised her to either come to the ER at night, or wait, see if it gets better, and come to the ER today if not better Source of Information: Patient, Old Records History of Present Illness Date Seen by Provider: January 27, 2022 Time Seen by Provider: 11:23 Initial Comments PT ARRIVES VIA POV FROM HOME IN [place] PT WAS TRANSFERRED FROM [place] [facility] TO HERE ON Sunday01/24/22 FOR RUPTURED RIGHT ECTOPIC , AND PT HAD SURGERY FOR THE RUPTURED ECTOPIC WELL AN APPENDECTOMY BY DR. MONTILLA. PT STATES LAST NIGHT, SHE BEGAN TO HAVE INCREASED GENERALIZED ABDOMINAL PAIN, WITH BLOATING OF ABDOMEN, AND LAST NIGHT THE RIGHT SIDE OF HER ABDOMEN FELT HARD. SHE HAS ALSO HAD VAGINAL BLEEDING, STARTING YESTERDAY. --STATES SHE HAS BEEN GOING THROUGH ONE PAD AN HOUR TODAY. HAS HAD SLIGHT NAUSEA,NO VOMITING HAD A NORMAL BM TODAY HAS HAD SLIGHT CHEST DISCOMFORT AND SLIGHT SHORTNESS OF BREATH TODAY NO COUGH NO FEVER/SWEATS/CHILLS NO SWELLING TO LEGS OR CALF PAIN PT TOOK 1 PAIN PILL EARLY THIS AM--SOMETIME BEFORE 0800 PT HAS NOT EATEN TODAY, BUT HAS BEEN DRINKING FLUIDS AND VOIDING A NORMAL AMOUNT NO PAIN / BURNING OR DIFFICULTY URINATING PT IS 3 MONTHS POST FROM PREVIOUS , PRIOR TO THE ECTOPIC PT HAS BEEN PCP: DR. HUERTA, [place]. Allergies and Home Medications Allergies Coded Allergies: latex (Verified Allergy, Unknown, 06/22/20) Patient Home Medication List Home Medication List Reviewed: Yes Ferrous Sulfate (Ferrous Sulfate) 325 Mg Tablet, 325 MG PO DAILY Prescribed by: THOMAS SHEETS on 09/27/21 1331 Ibuprofen (Ibu) 600 Mg Tablet, 800 MG PO Q6HR PRN for PAIN-MILD (1-4) Prescribed by: LUÍS HIGGINS on 01/24/22 1617 Oxycodone HCl/Acetaminophen (Percocet 5-325 mg Tablet) 5 Mg-325 Mg Tablet, 1 TAB PO Q4H PRN for PAIN-MODERATE Prescribed by: MACRINA WAGNER on 01/25/22 0948 [id number]/Iron Fumarate/FA/Dss ( 19 Tablet) 1 Each Tablet, 1 EACH PO DAILY, (Reported) Entered as Reported by: ALEXANDRU GODWIN on 04/05/20 2030 Review of Systems Review of Systems Constitutional: no symptoms reported; No chills, No diaphoresis, No dizziness, No fever EENTM: no symptoms reported Respiratory: see HPI; No cough; short of breath Cardiovascular: see HPI, chest pain; No edema, No palpitations, No syncope, No vascular heart diseas Gastrointestinal: see HPI, abdominal pain; No constipation, No diarrhea; loss of appetite, nausea; No vomiting Genitourinary: see HPI; No dysuria Musculoskeletal: no symptoms reported; No back pain Skin: no symptoms reported Psychiatric/Neurological: No Symptoms Reported Hematologic/Lymphatic: Anemia Immunological/Allergic: no symptoms reported Past Rttgmka-[id number]-Xafbdv Hx Patient Social History Tobacco Use?: No Substance use?: No Alcohol Use?: No Immunizations Up To Date PED Vaccines UTD: Yes Seasonal Allergies Seasonal Allergies: Yes Past Medical History Surgeries: Yes (WISDOM TEETH EXTRACTION;01/24/22-APPY + R SALPINGECTOMY FOR ECTOPIC PREG) Appendectomy, Gallbladder, Tonsillectomy Respiratory: No Cardiac: No Neurological: Yes Headaches /Migraines : No Hx : 4 Hx Para: 3 Hx Total # of Abortions (Sp): 1 (RUPTURED RIGHT ECTOPIC 01/24/22-S/P RIGHT SALPINGECTOMY BY DR. MONTILLA) Reproductive Disorders: Yes (RUPTURED R ECTOPIC PREG 01/24/22--SURGERY BY DR. MONTILLA) Genitourinary: No Gastrointestinal: No Musculoskeletal: No Endocrine: No HEENT: No Cancer: No Psychosocial: No Integumentary: No Blood Disorders: No Adverse Reaction/Blood Tranf: No Family Medical History Patient reports no known family medical history. Physical Exam Vital Signs Vital Signs - First Documented 01/27/22 11:23 Temp 36.5 Pulse 77 Resp 16 B/P (MAP) 120/84 (96) Pulse Ox 98 Capillary Refill : Height, Weight, BMI Height: 5'2.00" Weight: 196lbs. 0oz. 88.035610bm; 29.00 BMI Method:Stated General Appearance: No Apparent Distress, WD/WN, Other HEENT: PERRL/EOMI, Pale Conjunctivae (L), Pale Conjunctivae (R) Neck: Normal Inspection Respiratory: Chest Non Tender, Normal Breath Sounds, No Accessory Muscle Use, No Respiratory Distress Cardiovascular: Regular Rate, Rhythm, No Edema, No JVD, No Murmur, Normal Peripheral Pulses Gastrointestinal: Soft, Distended (MILDLY DISTENDED, BUT IS STILL SOFT); No Guarding, No Hernia, No Mass; Tenderness (DIGGUSE TENDERNESS. BANDAGES ON SURGICAL WOUNDS ARE CLEAN/DRY/INTACT. 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 Norm as Tested, Other (FLAT AFFECT) Skin: Warm/Dry, Pallor Progress/Results/Core Measures Suspected Sepsis SIRS Temperature: Pulse: 77 Respiratory Rate: 16 Laboratory Tests 01/27/22 11:50: White Blood Count 6.9 Blood Pressure 120 /84 Mean: 96 Laboratory Tests 01/27/22 11:50: Creatinine 0.64, INR Comment 0.9, Platelet Count 283, Total Bilirubin 0.2 Results/Orders Lab Results Laboratory Tests Test 01/27/22 11:50 Range/Units White Blood Count 6.9 4.3-11.0 10^3/uL Red Blood Count 3.34 L 3.80-5.11 10^6/uL Hemoglobin 10.7 L 11.5-16.0 g/dL Hematocrit 32 L 35-52 % Mean Corpuscular Volume 95 80-99 fL Mean Corpuscular Hemoglobin 32 25-34 pg Mean Corpuscular Hemoglobin Concent 34 32-36 g/dL Red Cell Distribution Width 11.6 10.0-14.5 % Platelet Count 283 130-400 10^3/uL Mean Platelet Volume 8.1 L 9.0-12.2 fL Immature Granulocyte % (Auto) 0 % Neutrophils (%) (Auto) 52 42-75 % Lymphocytes (%) (Auto) 40 12-44 % Monocytes (%) (Auto) 6 0-12 % Eosinophils (%) (Auto) 2 0-10 % Basophils (%) (Auto) 1 0-10 % Neutrophils # (Auto) 3.6 1.8-7.8 10^3/uL Lymphocytes # (Auto) 2.7 1.0-4.0 10^3/uL Monocytes # (Auto) 0.4 0.0-1.0 10^3/uL Eosinophils # (Auto) 0.1 0.0-0.3 10^3/uL Basophils # (Auto) 0.1 0.0-0.1 10^3/uL Immature Granulocyte # (Auto) 0.0 0.0-0.1 10^3/uL Prothrombin Time 12.6 12.2-14.7 SEC INR Comment 0.9 0.8-1.4 Activated Partial Thromboplast Time 31 24-35 SEC Urine Color YELLOW Urine Clarity CLEAR Urine pH 8.0 5-9 Urine Specific [place] 1.010 L 1.016-1.022 Urine Protein NEGATIVE NEGATIVE Urine Glucose (UA) NEGATIVE NEGATIVE Urine Ketones NEGATIVE NEGATIVE Urine Nitrite NEGATIVE NEGATIVE Urine Bilirubin NEGATIVE NEGATIVE Urine Urobilinogen 0.2 < = 1.0 MG/DL Urine Leukocyte Esterase NEGATIVE NEGATIVE Urine RBC (Auto) TRACE-I H NEGATIVE Urine RBC NONE /HPF Urine WBC NONE /HPF Urine Squamous Epithelial Cells RARE /HPF Urine Crystals NONE /LPF Urine Bacteria NEGATIVE /HPF Urine Casts NONE /LPF Urine Mucus NEGATIVE /LPF Urine Culture Indicated NO Sodium Level 142 135-145 MMOL/L Potassium Level 3.7 3.6-5.0 MMOL/L Chloride Level 105 98-107 MMOL/L Carbon Dioxide Level 26 21-32 MMOL/L Anion Gap 11 5-14 MMOL/L Blood Urea Nitrogen 7 7-18 MG/DL Creatinine 0.64 0.60-1.30 MG/DL Estimat Glomerular Filtration Rate 129 BUN/Creatinine Ratio 11 Glucose Level 75 70-105 MG/DL Calcium Level 9.0 8.5-10.1 MG/DL Corrected Calcium 9.1 8.5-10.1 MG/DL Magnesium Level 2.2 1.6-2.4 MG/DL Total Bilirubin 0.2 0.1-1.0 MG/DL Aspartate Amino Transf (AST/SGOT) 42 H 5-34 U/L Alanine Aminotransferase (ALT/SGPT) 147 H 0-55 U/L Alkaline Phosphatase 86 40-136 U/L Total Creatine Kinase 63 29-168 U/L Creatine Kinase MB 0.2 <6.6 NG/ML Troponin I < 0.028 <0.028 NG/ML B-Type Natriuretic Peptide 44.7 <100.0 PG/ML Total Protein 6.8 6.4-8.2 GM/DL Albumin 3.9 3.2-4.5 GM/DL Lipase 17 8-78 U/L Human Chorionic Gonadotropin, Quant 411 H <5 MIU/ML Urine Opiates Screen NEGATIVE NEGATIVE Urine Oxycodone Screen NEGATIVE NEGATIVE Urine Methadone Screen NEGATIVE NEGATIVE Urine Propoxyphene Screen NEGATIVE NEGATIVE Urine Barbiturates Screen NEGATIVE NEGATIVE Ur Tricyclic Antidepressants Screen NEGATIVE NEGATIVE Urine Phencyclidine Screen NEGATIVE NEGATIVE Urine Amphetamines Screen NEGATIVE NEGATIVE Urine Methamphetamines Screen NEGATIVE NEGATIVE Urine Benzodiazepines Screen NEGATIVE NEGATIVE Urine Cocaine Screen NEGATIVE NEGATIVE Urine Cannabinoids Screen NEGATIVE NEGATIVE Influenza Type A (RT-PCR) Not Detected Not Detecte Influenza Type B (RT-PCR) Not Detected Not Detecte SARS-CoV-2 RNA (RT-PCR) Not Detected Not Detecte My Orders Orders - PATTIE DUMONT DO Ed Iv/Invasive Line Start (01/27/22 11:23) Urine Bedside (01/27/22 11:23) Monitor-Rhythm Ecg Trace Only (01/27/22 11:23) Covid 19 Inhouse Test (01/27/22 11:23) Influenza A And B By Pcr (01/27/22 11:23) Isolation Central Supply Req (01/27/22 11:23) Straight Cath For Spec.-Adult (01/27/22 11:35) Chest 1 View, Ap/Pa Only (01/27/22 11:35) Bnp Mihai (01/27/22 11:35) Cbc With Automated Diff (01/27/22 11:35) Comprehensive Metabolic Panel (01/27/22 11:35) Creatine Kinase (01/27/22 11:35) Creatine Kinase Mb (01/27/22 11:35) Drug Screen Stat (Urine) (01/27/22 11:35) Hcg,Quantitative (01/27/22 11:35) Lipase (01/27/22 11:35) Magnesium (01/27/22 11:35) Protime With Inr (01/27/22 11:35) Partial Thromboplastin Time (01/27/22 11:35) Troponin I Josephine (01/27/22 11:35) Ua Culture If Indicated (01/27/22 11:35) Ed Iv/Invasive Line Start (01/27/22 11:35) Ct Abdomen/Pelvis W (01/27/22 12:15) Iohexol Injection (Omnipaque 350 Mg/Ml 1 (01/27/22 12:30) Received Contrast (Hold Metformin- Contr (01/27/22 12:30) Sodium Chloride Flush (Catheter Flush Sy (01/27/22 12:30) Ns (Ivpb) (Sodium Chloride 0.9% Ivpb Bag (01/27/22 12:30) Medications Given in ED Vital Signs/I&O 01/27/22 11:23 Temp 36.5 Pulse 77 Resp 16 B/P (MAP) 120/84 (96) Pulse Ox 98 Capillary Refill : Blood Pressure Mean: 96 Progress Note : Progress Note NO DETERIORATION IN PT'S CONDITION DURING ER STAY PT DID NOT GO THROUGH ANY PADS DURING ER STAY Diagnostic Imaging Comments CXR--PER RADIOLOGIST REPORT AT 1247 FINDINGS: Heart and mediastinal silhouette are normal in appearance. The lungs are clear. There is no pneumothorax or pleural fluid. IMPRESSION: Negative chest. CT ABDOMEN/PELVIS--PER RADIOLOGIST REPORT AT 0132 AND PER PHONE AT 0133 CT imaging of the abdomen and pelvis is performed after intravenous administration of iodinated contrast. There is no focal hepatic, gallbladder, pancreatic or adrenal gland abnormality. Gallbladder is surgically absent. There is no evidence of renal lesion. There is no free fluid in the abdomen. Surgical sutures seen at the level of the appendix. There is mild pelvic free fluid which is of intermediate density. Unopacified urinary bladder is unremarkable. IMPRESSION: Mild pelvic fluid is of intermediate density and likely represents hemoperitoneum. There is no evidence of organized fluid collection to indicate an abscess or other post appendectomy complication. Correlation with beta hCG measurements would also be useful for exclusion of ruptured ectopic . Reviewed: Reviewed by Me, Discussed w/Radiologist Departure Communication (Admissions) [id number]--SPOKE WITH DR. MONTILLA, ADVISES TO ADMIT PT, AND HE WILL BE IN TO SEE PT Impression Primary Impression: Post-op pain Additional Impressions: S/P RUPTURED ECTOPIC AND APPENDECTOMY Ruptured right tubal ectopic causing hemoperitoneum Disposition: ADMITTED INPATIENT Condition: Stable Admissions Decision to Admit Reason: Admit from ER (General) Decision to Admit/Date: January 27, 2022 Time/Decision to Admit Time: 13:40 Departure-Patient Inst. Referrals: RICK MCLEAN MD (PCP/Family) Primary Care Physician PATTIE DUMONT DO January 27, 2022 12:47
--- NOTE | 2022-01-27 13:27 | Diagnostic Imaging Report ---
PROCEDURE: CT abdomen and pelvis with contrast. TECHNIQUE: Multiple contiguous axial images were obtained through the abdomen and pelvis after administration of intravenous contrast. Auto Exposure Controls were utilized during the CT exam to meet ALARA standards for radiation dose reduction. All CT scans use one or more of the following dose optimizing techniques: automated exposure control, MA and/or KvP adjustment based on patient size and exam type or iterative reconstruction. INDICATION: Abdominal pain post appendectomy. CT imaging of the abdomen and pelvis is performed after intravenous administration of iodinated contrast. There is no focal hepatic, gallbladder, pancreatic or adrenal gland abnormality. Gallbladder is surgically absent. There is no evidence of renal lesion. There is no free fluid in the abdomen. Surgical sutures seen at the level of the appendix. There is mild pelvic free fluid which is of intermediate density. Unopacified urinary bladder is unremarkable. IMPRESSION: Mild pelvic fluid is of intermediate density and likely represents hemoperitoneum. There is no evidence of organized fluid collection to indicate an abscess or other post appendectomy complication. Correlation with beta hCG measurements would also be useful for exclusion of ruptured ectopic . Dictated by: Dictated on workstation # [id number]
[2022-01-27 14:12] LABS: HEMATOCRIT 31 % (35-52); HEMOGLOBIN 10.3 g/dL (11.5-16.0); MEAN CORPUSCULAR HEMOGLOBIN 32 pg (25-34); MEAN CORPUSCULAR HGB CONC 34 g/dL (32-36); MEAN CORPUSCULAR VOLUME 95 fL (80-99); MEAN PLATELET VOLUME 8.3 fL (9.0-12.2); PLATELET COUNT 284 10^3/uL (130-400); WHITE BLOOD COUNT 7.5 10^3/uL (4.3-11.0)
[2022-01-27 14:45] VITALS: BP 106/71
[2022-01-27] MEDS: NS IV 1000 ML 1,000 ML IV SCH ×2 (14:47→19:42)
[2022-01-27] MEDS ORDERED: oxyCODONE/APAP 5/325MG (PERCOCET 5) TABLET ONE (15:21)
[2022-01-27] MEDS ORDERED: ONDANSETRON 4 MG/2 ML (SDV) Z0FRAN ONE ×2 (15:21→18:31)
[2022-01-27] MEDS: oxyCODONE/APAP 5/325MG (PERCOCET 5) TABLET PO PRN ×2 (15:29→18:26)
[2022-01-27] MEDS ORDERED: ONDANSETRON 4 MG/2 ML (SDV) Z0FRAN IVP ONE ×3 (15:30→21:45)
[2022-01-27 17:49] VITALS: BP 107/65
[2022-01-27 19:56] VITALS: BP 93/52
[2022-01-27] MEDS ORDERED: KETOROLAC 30 MG/ML VIAL ONE (21:37)
[2022-01-27] MEDS ORDERED: KETOROLAC 30 MG/ML VIAL IVP ONE (21:45)
[2022-01-28] VITALS: BP 87/50
[2022-01-28] MEDS ORDERED: IBUPROFEN 800 MG (MOTRIN) TAB PO ONE (01:12)
[2022-01-28] MEDS: IBUPROFEN 800 MG (MOTRIN) TAB PO SCH ×2 (03:14→10:05)
[2022-01-28] MEDS: NS IV 1000 ML 1,000 ML IV SCH (03:14)
[2022-01-28 03:25] VITALS: BP 95/56
[2022-01-28] MEDS: oxyCODONE/APAP 5/325MG (PERCOCET 5) TABLET PO PRN (07:43)
[2022-01-28 07:45] VITALS: BP 104/57
[2022-01-28] MEDS ORDERED: DOCUSATE SODIUM 100 MG (COLACE) CAP PO SCH (09:00)
--- NOTE | 2022-01-28 09:11 | History & Physical ---
History and Physical Date Seen by Provider: January 27, 2022 Time Seen by Provider: 23:00 This patient is a 63-njtq-aztXdfyyn who is5 days status post laparoscopic treatment for right ruptured tubal and also had an incidental appendectomy. Patient return to the emergency department last evening with complaint of vaginal bleeding and some pain Particularly in the back and upper abdomen. Evaluation emergency department included a CT that showed mild fluid in the pelvis otherwise benign findings. Her hemoglobin was stable since the surgery at the low 10 g level. Repeat hemoglobin after several hours showed stable hemoglobinIn spite of receiving IV fluids . She was admitted for observation due to concern for potential intra-abdominal bleeding. This morning the patient reports that her pain is markedly better. She continu es to have some vaginal spotting which would be normal after laparoscopy with using a uterine manipulator. Patient is tolerating oral intake she is ambulating and voiding. She has good pain control. Allergies are to latex Medications are Percocet and Motrin Medical social and surgical history is are per her previous H&P HEENT exam is normal Neck is supple no lymphadenopathy no thyromegaly Abdomen is soft very minimally distended and mildly tympanitic there are bowel sounds present in all 4 quadrants there is no guarding rebound or rigidity although the abdomen is somewhat tender as would be expected around the laparoscopy incisions Pelvic exam is deferred Assessment and plan Less than 1 week status post laparoscopic treatment for ruptured ectopic. April ramos had extensive hemoperitoneum at the time of that surgery 500 cc of blood and clot were evacuated but there would have been significant amounts of residual in the months loops of bowel and that easily could settle in the pelvis and explained the CT findings currently. As her hemoglobin is stable since the surgery I doubt that she is experiencing significant bleeding intra-abdominal he or from the uterus. She is having some spotting or bleeding from the vagina as would be expected. I think with the mild abdominal distention and with her symptoms on presentation of mild ileus likely would explain some of her symptoms as well And that does seem to be resolving We discussed discharge home with follow-up in clinic. We will renew her pain medications and add a stool softener. Postoperative ileus and normal postoperative vaginal bleeding Allergies and Home Medications Allergies Coded Allergies: latex (Verified Allergy, Unknown, 06/22/20) Patient Home Medication List Home Medication List Reviewed: No Ferrous Sulfate (Ferrous Sulfate) 325 Mg Tablet, 325 MG PO DAILY Prescribed by: THOMAS SHEETS on 09/27/21 1331 Ibuprofen (Ibu) 600 Mg Tablet, 800 MG PO Q6HR PRN for PAIN-MILD (1-4) Prescribed by: LUÍS HIGGINS on 01/24/22 1617 Oxycodone HCl/Acetaminophen (Percocet 5-325 mg Tablet) 5 Mg-325 Mg Tablet, 1 TAB PO Q4H PRN for PAIN-MODERATE Prescribed by: MACRINA WANGER on 01/25/22 0948 [id number]/Iron Fumarate/FA/Dss ( 19 Tablet) 1 Each Tablet, 1 EACH PO DAILY, (Reported) Entered as Reported by: ALEXANDRU GODWIN on 04/05/202029 LUÍS MONTILLA MD January 28, 2022 09:11
[2022-01-28] MEDS ORDERED: OXYC-199 PO (09:12)
[2022-01-28] MEDS ORDERED: DOCU100C37 PO (09:12)
[2022-01-28 09:29] VITALS: BP 104/57
[2022-01-28] MEDS ORDERED: ONDA8TAB13 PO (09:35)
== END 2022-01-28 10:35 | disposition home or self-care (01) ==
LOC: EDUNIT# 11:11 → ER 11:13 → WS 13:40
PROVIDERS: ADMIT Obstetrics & Gynecology; ATTEND Obstetrics & Gynecology
DX: G89.18 Other acute postprocedural pain (principal)
CPT/HCPCS: 51701; 71045; 74177; 80053; 80306; 81000; 82550; 82553; 83690; 83735; 83880; 84484; 84702; 84703; 85025; 85027; 85610; 85730; 87636; 93041; 96361 ×2; 96374; 96375; 96376; 99284; G0378; 36415

== ENCOUNTER → 2022-02-13 | Outpatient (CLI) | payer MEDICAID ==
[~2022-02-13] MED LIST changes: +CATHETER FLUSH 10 ML SYR IV PRN; +DOCU100C37 PO; +HOLD METFORMIN - RECEIVED CONTRAST 20 ML VIAL IV SCH; +IOHEXOL 350 MG/ML 100 ML (OMNIPAQUE 350) VIAL IV ONE; +NS 100 ML (IVPB) BAG IV ONE; +ONDA8TAB13 PO
--- NOTE | 2022-02-13 17:12 | Diagnostic Imaging Report ---
EXAMINATION: CT abdomen and pelvis with intravenous contrast. TECHNIQUE: Multiple contiguous axial images were obtained through the abdomen and pelvis after the uneventful administration of intravenous contrast. All CT scans use one or more of the following dose optimizing techniques: automated exposure control, MA and/or KvP adjustment based on patient size and exam type or iterative reconstruction. HISTORY: RLQ PAIN COMPARISON: 01/27/2022. FINDINGS: Lung bases: The lung bases are clear. Solid organs: The liver is normal without focal lesion. The gallbladder is surgically absent. There is no biliary ductal dilation. Pancreas is normal. Spleen is normal. Adrenal glands are normal. The kidneys are normal without hydronephrosis. Bowel: The stomach and small bowel are normal without obstruction. The colon is unremarkable. The appendix is nonvisualized and may be surgically absent. Peritoneum: There is a mild amount of free fluid within the pelvis. No free air or loculated fluid collection. No suspicious lymphadenopathy. Vasculature: Normal without aneurysm. Musculoskeletal: No suspicious osseous lesion or compression fracture. Pelvis: The uterus and adnexa are unremarkable. The urinary bladder is normal. IMPRESSION: 1. No acute abnormality in the abdomen or pelvis. 2. Mild free fluid in the pelvis. Dictated by: Dictated on workstation # [id number]
== END ==
LOC: RAD FS 16:32
PROVIDERS: ATTEND Family Medicine
DX: R10.31 Right lower quadrant pain (principal)
CPT/HCPCS: 74177; Q9967

== ENCOUNTER 2022-04-22 04:51 | Emergency (ER) | payer MEDICAID ==
[~2022-04-22 04:51] MED LIST changes: -CATHETER FLUSH 10 ML SYR IV PRN; -HOLD METFORMIN - RECEIVED CONTRAST 20 ML VIAL IV SCH; -IOHEXOL 350 MG/ML 100 ML (OMNIPAQUE 350) VIAL IV ONE; -NS 100 ML (IVPB) BAG IV ONE
[2022-04-22] MEDS ORDERED: CEPH500T PO (05:45)
--- NOTE | 2022-04-22 05:45 | ED Upper Extremity ---
General Chief Complaint: Laceration Stated Complaint: LACERATION Nursing Triage Note: Pt presents with a laceration to her left ring finger. Pt states she was trying to open a can of beans and cut it on the lid Source: patient Exam Limitations: no limitations History of Present Illness Date Seen by Provider: Apr 22, 2022 Time Seen by Provider: 04:56 Initial Comments 21-year-old female with no pertinent past medical history coming in after she cut her left ring finger on a can of beans opening it up after night of partaking in alcoholic beverages. Tetanus is up-to-date. Having moderate constant throbbing pain in that finger which is better with rest and worse with touching it. She is otherwise denying any other acute complaints. Allergies and Home Medications Allergies Coded Allergies: latex (Verified Allergy, Unknown, 06/22/20) Patient Home Medication List Home Medication List Reviewed: Yes Cephalexin (Cephalexin) 500 Mg Tablet, 500 MG PO QID Prescribed by: SHASHI CABRERA on 04/22/22 0545 Docusate Sodium (Docusate Sodium) 100 Mg Capsule, 100 MG PO BID Prescribed by: LUÍS HIGGINS on 01/28/22 0912 Ferrous Sulfate (Ferrous Sulfate) 325 Mg Tablet, 325 MG PO DAILY Prescribed by: THOMAS SHEETS on 09/27/21 1331 Ibuprofen (Ibu) 600 Mg Tablet, 800 MG PO Q6HR PRN for PAIN-MILD (1-4) Prescribed by: LUÍS HIGGINS on 01/24/22 1617 Ondansetron (Ondansetron Odt) 8 Mg Tab.rapdis, 8 MG PO Q6H PRN for NAUSEA-1ST LINE Prescribed by: CAMI MIRANDA on 01/28/22 0935 Oxycodone HCl/Acetaminophen (Percocet 5-325 mg Tablet) 5 Mg-325 Mg Tablet, 1 TAB PO Q4H PRN for PAIN-MODERATE Prescribed by: LUÍS HIGGINS on 01/28/22 0913 [id number]/Iron Fumarate/FA/Dss ( 19 Tablet) 1 Each Tablet, 1 EACH PO DAILY, (Reported) Entered as Reported by: ALEXANDRU GODWIN on 04/05/202029 Review of Systems Constitutional: No fever EENTM: no symptoms reported Respiratory: no symptoms reported Cardiovascular: no symptoms reported Gastrointestinal: no symptoms reported Genitourinary: no symptoms reported Musculoskeletal: see HPI Skin: see HPI Psychiatric/Neurological: No Symptoms Reported All Other Systems Reviewed Negative Unless Noted: Yes Past Lddpzho-Qgyefc-Iqujdv Hx Patient Social History Tobacco Use?: No Use of E-Cig and/or Vaping dev: No Substance use?: No Alcohol Use?: Yes Pt feels they are or have been: No Immunizations Up To Date PED Vaccines UTD: Yes Seasonal Allergies Seasonal Allergies: Yes Past Medical History Surgeries: Yes (WISDOM TEETH EXTRACTION;01/24/22-APPY + R SALPINGECTOMY FOR ECTOPIC PREG) Appendectomy, Gallbladder, Tonsillectomy Respiratory: No Cardiac: No Neurological: Yes Headaches /Migraines Reproductive Disorders: Yes (RUPTURED R ECTOPIC PREG 01/24/22--SURGERY BY DR. MONTILLA) Genitourinary: No Gastrointestinal: No Musculoskeletal: No Endocrine: No HEENT: No Cancer: No Psychosocial: No Integumentary: No Blood Disorders: No Adverse Reaction/Blood Tranf: No Family Medical History Patient reports no known family medical history. Physical Exam Vital Signs Vital Signs - First Documented 04/22/22 04:57 Pulse 102 Resp 18 B/P (MAP) 120/77 (91) Pulse Ox 98 O2 Delivery Room Air Capillary Refill : Less Than 3 Seconds Height, Weight, BMI Height: 5'2.00" Weight: 196lbs. 0oz. 88.034279cl; 30.46 BMI Method:Stated General Appearance: WD/WN, no apparent distress HEENT: PERRL/EOMI, normal ENT inspection, pharynx normal Neck: non-tender, full range of motion, supple, normal inspection Cardiovascular: regular rate, rhythm, no edema, no murmur Respiratory: chest non-tender, lungs clear, normal breath sounds, no respiratory distress, no accessory muscle use Gastrointestinal: normal bowel sounds, non tender, soft; No distended, No guarding, No rebound Back: normal inspection, no CVA tenderness Hand: Left (Left ring finger with irregular 3 cm laceration. Part of the skin has almost completely been removed and is hanging on by a small 1 mm bridge with the skin completely pale and not getting any blood flow that is hanging off. Normal distal sensation and capillary refill) Neurologic/Psychiatric: no motor/sensory deficits, alert, normal mood/affect Skin: normal color, warm/dry Lymphatic: no adenopathy Procedures/Interventions Wound Location: Upper Extremities Other Wound Location Left ring finger palmar surface Wound Length (cm): 3 Wound's Depth, Shape: sub Q Wound Explored: clean Irrigated w/ Saline (ccs): 500 Anesthesia: 1% Lidocaine (Digital block performed after cleaning the area with chlorhexidine with full anesthesia achieved) Volume Anesthetic (ccs): 4 Suture: Ethlion Suture Size: 5-0 Number of Sutures: 7 Progress The majority of the wound is a large portion of skin that almost is completely avulsed off barely hanging on. This was sutured back on to be its own bandage with a mostly running suture. The rest of the skin was closed with simple interrupted sutures. Patient tolerated the procedure well. Progress/Results/Core Measures Results/Orders Vital Signs/I&O 04/22/22 04/22/22 04:57 05:49 Pulse 102 102 Resp 18 18 B/P (MAP) 120/77 (91) 120/77 Pulse Ox 98 98 O2 Delivery Room Air Room Air Blood Pressure Mean: 91 Progress Progress Note : Progress Note The wound was closed. The majority of the skin was avulsed off and not viable, but it was sutured back on to be its own bandage. I discussed with the patient that this skin is not viable, and eventually will fall off. Patient tolerated the procedure well. She was then discharged home in stable condition with strict return precautions Departure Impression Primary Impression: Finger laceration Qualified Codes: S61.215A - Laceration without foreign body of left ring finger without damage to nail, initial encounter Disposition: 01 HOME, SELF-CARE Condition: Improved Departure-Patient Inst. Decision time for Depature: 05:44 Referrals: RICK MCLEAN MD (PCP/Family) Primary Care Physician Patient Instructions: Laceration Repair With Stitches ED Add. Discharge Instructions: Most of the skin that was stitched back on is not alive and does not have blood flow. This will eventually scab over and fall off. The stitches need to come out in 1 week. You will be on antibiotics for that week as well. If you have any redness spreading up your arm, pus coming out, or new fever with that then please come back to the ER to have a wound check. Do not get it wet for the first 24 hours, after that water can briefly run over it but do not scrub it. Do not submerge in any water until the stitches are out. Scripts Cephalexin (Cephalexin) 500 Mg Tablet 500 MG PO QID for 7 Days, #28 TAB Prov: SHASHI CABRERA MD 04/22/22 SHASHI CABRERA MD Apr 22, 2022 05:45
[2022-04-22 05:49] VITALS: BP 120/77
== END 2022-04-22 05:50 | disposition home or self-care (01) ==
LOC: EDUNIT# 04:51 → ER FS 04:54
DX: S61.215A Laceration without foreign body of left ring finger without damage to nail, initial encounter (principal); Z91.040 Latex allergy status; W26.8XXA Contact with other sharp object(s), not elsewhere classified, initial encounter
CPT/HCPCS: 12001

== ENCOUNTER → 2022-06-19 | Outpatient (CLI) | payer MEDICAID ==
[~2022-06-19] MED LIST changes: +CEPH500T PO
--- NOTE | 2022-06-19 16:39 | Diagnostic Imaging Report ---
INDICATION: PAIN IN RIGHT ANKLE AND FOOT COMPARISON: None. FINDINGS: 2 views of the right ankle were obtained. There is no acute fracture or dislocation. No focal osseous lesions are seen. The surrounding soft tissue structures are unremarkable. There are no radiopaque foreign bodies. IMPRESSION: 1. No acute fracture or dislocation in the right ankle. Dictated by: Dictated on workstation # [id number]
--- NOTE | 2022-06-19 17:05 | Diagnostic Imaging Report ---
EXAMINATION: Right foot radiograph EXAM DATE: 06/19/2022 4:03 PM COMPARISON: None available. HISTORY: PAIN IN RIGHT ANKLE AND FOOT TECHNIQUE: 3 views FINDINGS: There is no acute fracture, dislocation, or destructive osseous process. The joint spaces are normal. The soft tissues are normal. IMPRESSION: 1. No acute osseous abnormality. Dictated by: Dictated on workstation # [id number]
== END ==
LOC: RAD FS 15:43
PROVIDERS: ATTEND Registered Nurse Emergency
DX: M25.571 Pain in right ankle and joints of right foot (principal); M79.671 Pain in right foot
CPT/HCPCS: 73600; 73630

== ENCOUNTER 2022-12-19 15:00 | Emergency (ER) | payer MEDICAID ==
--- NOTE | 2022-12-19 15:11 | ED Chest Pain ---
General Chief Complaint: Chest Pain Stated Complaint: CHEST PAIN Source: patient Exam Limitations: no limitations History of Present Illness Date Seen by Provider: Dec 19, 2022 Time Seen by Provider: 15:10 Initial Comments 22-year-old female presents to the emergency department today for chest pain. She states it is a sharp stabbing pain in her mid central chest, worse with deep inspiration. Notably she had exploratory laparotomy on her abdomen earlier this morning. They were looking for cause of her chronic abdominal pain, possible endometriosis. They did really not finding any thing significant according to the patient she denies any fevers or chills. She is not really having any shortness of breath but it hurts to take a deep breath. No unilateral lower extremity pain, swelling. No hemoptysis. Pain is nonradiating. All other systems reviewed and negative except documented per HPI. Voice recognition software was used to help create this chart Allergies and Home Medications Allergies Coded Allergies: latex (Verified Allergy, Unknown, 06/22/20) Patient Home Medication List Home Medication List Reviewed: Yes Cephalexin (Cephalexin) 500 Mg Tablet, 500 MG PO QID Prescribed by: SHASHI CABRERA on 04/22/22 0545 Docusate Sodium (Docusate Sodium) 100 Mg Capsule, 100 MG PO BID Prescribed by: LUÍS HIGGINS on 01/28/22 0912 Ferrous Sulfate (Ferrous Sulfate) 325 Mg Tablet, 325 MG PO DAILY Prescribed by: THOMAS SHEETS on 09/27/21 1331 Ibuprofen (Ibu) 600 Mg Tablet, 800 MG PO Q6HR PRN for PAIN-MILD (1-4) Prescribed by: LUÍS HIGGINS on 01/24/22 1617 Ondansetron (Ondansetron Odt) 8 Mg Tab.rapdis, 8 MG PO Q6H PRN for NAUSEA-1ST LINE Prescribed by: CAMI MIRANDA on 01/28/22 0935 Oxycodone HCl/Acetaminophen (Percocet 5-325 mg Tablet) 5 Mg-325 Mg Tablet, 1 TAB PO Q4H PRN for PAIN-MODERATE Prescribed by: LUÍS HIGGINS on 01/28/22 0913 [id number]/Iron Fumarate/FA/Dss ( 19 Tablet) 1 Each Tablet, 1 EACH PO DAILY, (Reported) Entered as Reported by: ALEXANDRU GODWIN on 04/05/202029 Review of Systems Review of Systems Constitutional: see HPI Past Eyswzyl-Ugydac-Avwphs Hx Patient Social History Tobacco Use?: No Use of E-Cig and/or Vaping dev: Yes E-Cig or Vaping type used: Nicotine Use of E-Cig and/or Vaping Fer: Current Everyday User Substance use?: No Alcohol Use?: No Pt feels they are or have been: No Immunizations Up To Date PED Vaccines UTD: Yes First/Initial COVID19 Vaccinat: Denies Seasonal Allergies Seasonal Allergies: Yes Past Medical History Surgery/Hospitalization HX: Exploratory lap (12/19/22), Removal of right fallopian tube; Cholecysectomy; Appendectomy; Tonsilectomy Surgeries: Yes (WISDOM TEETH EXTRACTION;01/24/22-APPY + R SALPINGECTOMY FOR ECTOPIC PREG) Appendectomy, Gallbladder, Tonsillectomy Respiratory: No Cardiac: No Neurological: Yes Headaches /Migraines Reproductive Disorders: Yes (RUPTURED R ECTOPIC PREG 01/24/22--SURGERY BY DR. MONTILLA) Genitourinary: No Gastrointestinal: No Musculoskeletal: No Endocrine: No HEENT: No Cancer: No Psychosocial: No Integumentary: No Blood Disorders: No Adverse Reaction/Blood Tranf: No Family Medical History Reviewed Nursing Family Hx Patient reports no known family medical history. No Pertinent Family Hx Physical Exam Vital Signs Vital Signs - First Documented 12/19/22 15:00 Temp 36.7 Pulse 93 Resp 16 B/P (MAP) 134/81 (98) Pulse Ox 99 O2 Delivery Room Air Capillary Refill : Less Than 3 Seconds Height, Weight, BMI Height: 5'2.00" Weight: 196lbs. 0oz. 88.980537op; 30.46 BMI Method:Stated General Appearance: No Apparent Distress, WD/WN HEENT: Normal ENT Inspection, Pharynx Normal Neck: Full Range of Motion, Normal Inspection, Non Tender, Supple Respiratory: Chest Non Tender, Lungs Clear, Normal Breath Sounds, No Accessory Muscle Use, No Respiratory Distress Cardiovascular: Regular Rate, Rhythm, No Murmur, Normal Peripheral Pulses Gastrointestinal: Normal Bowel Sounds, No Organomegaly, No Pulsatile Mass, Other (Surgical incisions in her periumbilical region and just inferior to the scar clean and dry with normal dressings. She is appropriately tender.) Extremity: Normal Capillary Refill, Normal Inspection, Normal Range of Motion, Non Tender, No Calf Tenderness, No Pedal Edema Skin: Normal Color, Warm/Dry Procedures/Interventions Suture Size: 5-0 Progress/Results/Core Measures Results/Orders My Orders Orders - ERMA ALEGRE DO Chest Pa/Lat (2 View) (12/19/22 15:14) Ekg Tracing (12/19/22 15:14) Vital Signs/I&O 12/19/22 15:00 Temp 36.7 Pulse 93 Resp 16 B/P (MAP) 134/81 (98) Pulse Ox 99 O2 Delivery Room Air Comment My interpretation of the EKG shows sinus rhythm at 62 bpm. Normal intervals. Normal axis. No ST or T wave abnormalities. No ectopy. No STEMI. No evidence of R heart strain Departure Communication (Admissions) Differential diagnosis includes pneumomediastinum, pneumothorax, dysrhythmia, PE , post operative pain. Based on clinical evidence, no tachycardia no hypoxia, no unilateral lower extremity pain or swelling of the nature of her pain I think this is very low risk to be a pulmonary embolus. No indication for imaging at this time. Chest x-ray shows on my interpretation a moderate amount of free air under the diaphragm consistent with recent ex lap however there is no evidence for pneumomediastinum or pneumothorax, or other complication. EKG shows no evidence for dysrhythmia. This is likely pain from insufflation after her surgery. She has Percocet at home and she will be discharged home with recommendation to continue this. Advised pain should likely subside in the next couple of days. She states understanding. She will follow-up with her primary care doctor as needed. Impression Primary Impression: Chest pain Qualified Codes: R07.1 - Chest pain on breathing Disposition: HOME, SELF-CARE Condition: Stable Departure-Patient Inst. Referrals: RICK MCLEAN MD (PCP/Family) Primary Care Physician Patient Instructions: Opioids for Short-Term Treatment of Pain ED Add. Discharge Instructions: I believe the pain you are experiencing is likely from your abdomen being distended with air during your surgery. Take pain medications as previously prescribed. This will likely resolve in the next couple of days. Return to the emergency department immediately if you have any severe pain or if your symptoms change in any way concerning to you. Follow-up with your primary doctor should your symptoms persist as they are. All discharge instructions reviewed with patient and/or family. Voiced understanding. ERMA ALEGRE DO Dec 19, 2022 15:11
--- NOTE | 2022-12-19 15:34 | Diagnostic Imaging Report ---
INDICATION: Chest pain, exploratory laparotomy earlier in the day. COMPARISON: 01/27/2022. TECHNIQUE: Two radiographs of the chest dated 12/19/2022. FINDINGS: The cardiac silhouette is within normal limits in size. No significant pulmonary vascular congestion. The lungs are clear of focal pulmonary opacity. No pleural effusion. No pneumothorax. No acute osseous abnormality. Surgical clips within the right upper abdomen. Free air is noted beneath the diaphragm bilaterally. IMPRESSION: Free intraperitoneal air noted within the abdomen. This is likely simply postsurgical in nature given provided history the patient had an exploratory laparotomy earlier in the day. Recommend clinical correlation. No definite acute cardiopulmonary abnormality within the chest itself. Dictated by: Dictated on workstation # [id number]
[2022-12-19 15:35] VITALS: BP 123/75
== END 2022-12-19 15:34 | disposition home or self-care (01) ==
LOC: EDUNIT# 15:00 → ER FS 15:01
DX: R07.9 Chest pain, unspecified (principal); F17.290 Nicotine dependence, other tobacco product, uncomplicated; Z28.310 Unvaccinated for COVID-19
CPT/HCPCS: 71046; 93005

== ENCOUNTER 2023-05-01 16:43 | Emergency (ER) | payer MEDICAID ==
[~2023-05-01] VITALS: Ht 160 cm; Wt 91.6 kg
[2023-05-01] MEDS ORDERED: NS IV 1000 ML 1,000 ML IV STA (17:38)
--- NOTE | 2023-05-01 17:51 | ED General ---
General Chief Complaint: OB < 20 WEEKS Stated Complaint: NO APPETITE - 19 WKS PREG Nursing Triage Note: PT AMBULATE TO ROOM FT1 WITHOUT DIFFICULTY WITH C/O NOT EATING MUCH FOR THE PREVIOUS WEEK. PT DENIES N/V/D, ABD PAIN. PT REPORTS SPEAKING TO HER OB AND BEING TOLD TO COME TO ED "TO GET CHECKED OUT". PT REPORTS SHE IS 19 WEEKS PREGNANAT. Source of Information: Patient Exam Limitations: No Limitations (SHASHI PEREZ) History of Present Illness Date Seen by Provider: May 01, 2023 Time Seen by Provider: 17:49 Initial Comments Patient is a 22-year-old female who is 19 weeks and 2 days who presents to the ED for decreased appetite. She has had no appetite over the past week. She states she attempted to eat 2 eggs yesterday but states this makes her feels nauseous. She has been trying to drink some fluids. She currently has no complaints such as headache, sore throat, ear pain, chest pain, cough, shortness of breath, specific abdominal pain, dysuria, hematuria, vaginal bleeding. She contacted her her [employer] Dr. Huerta who recommended her to come the ED. Patient is G5, P3. Currently on prenatals. No known medical problems. She denies of any fever at home. Denies history of acid reflux or GERD., She denies Nausea, vomiting, diarrhea (SHASHI PEREZ) Allergies and Home Medications Allergies Coded Allergies: latex (Verified Allergy, Unknown, 06/22/20) Patient Home Medication List Home Medication List Reviewed: Yes (SHASHI PEREZ) Cephalexin (Cephalexin) 500 Mg Tablet, 500 MG PO QID Prescribed by: SHASHI CABRERA on 04/22/22 0545 Docusate Sodium (Docusate Sodium) 100 Mg Capsule, 100 MG PO BID Prescribed by: LUÍS HIGGINS on 01/28/22 0912 Ferrous Sulfate (Ferrous Sulfate) 325 Mg Tablet, 325 MG PO DAILY Prescribed by: THOMAS SHEETS on 09/27/21 1331 Ibuprofen (Ibu) 600 Mg Tablet, 800 MG PO Q6HR PRN for PAIN-MILD (1-4) Prescribed by: LUÍS HIGGINS on 01/24/22 1617 Metoclopramide HCl (Reglan) 5 Mg Tablet, 5 MG PO Q6H Prescribed by: TED LOYD on 05/01/23 193 Ondansetron (Ondansetron Odt) 8 Mg Tab.rapdis, 8 MG PO Q6H PRN for NAUSEA-1ST LINE Prescribed by: CAMI MIRANDA on 01/28/22 0935 Oxycodone HCl/Acetaminophen (Percocet 5-325 mg Tablet) 5 Mg-325 Mg Tablet, 1 TAB PO Q4H PRN for PAIN-MODERATE Prescribed by: LUÍS HIGGINS on 01/28/22 0913 Kjg694/Iron Fumarate/FA/Dss ( 19 Tablet) 1 Each Tablet, 1 EACH PO DAILY, (Reported) Entered as Reported by: ALEXANDRU GODWIN on 04/05/20 2030 Review of Systems Review of Systems Constitutional: No chills, No diaphoresis, No fever, No malaise, No weakness EENTM: No hearing loss, No ear pain, No blurred vision Respiratory: No cough, No dyspnea on exertion Cardiovascular: No chest pain Gastrointestinal: No abdominal pain, No diarrhea, No nausea, No vomiting Genitourinary: No decreased output, No discharge Musculoskeletal: No back pain, No joint pain Skin: No change in color, No change in hair/nails (SHASHI PEREZ) All Other Systems Reviewed Negative Unless Noted: Yes (SHASHI PEREZ) Past Xixzylc-Wzgckq-[place] Hx Patient Social History Tobacco Use?: No Smokeless Tobacco Frequency: Never a User Use of E-Cig and/or Vaping dev: No Use of E-Cig and/or Vaping Fer: Never a User Substance use?: No Alcohol Use?: No Pt feels they are or have been: No (SHASHI PEREZ) Immunizations Up To Date PED Vaccines UTD: Yes First/Initial COVID19 Vaccinat: Denies (SHASHI PEREZ) Seasonal Allergies Seasonal Allergies: Yes (SHASHI PEREZ) Past Medical History Surgery/Hospitalization HX: Exploratory lap (12/19/22), Removal of right fallopian tube; Cholecysectomy; Appendectomy; Tonsilectomy Surgeries: Yes (WISDOM TEETH EXTRACTION;01/24/22-APPY + R SALPINGECTOMY FOR ECTOPIC PREG) Appendectomy, Gallbladder, Tonsillectomy Respiratory: No Cardiac: No Neurological: Yes Headaches /Migraines Reproductive Disorders: Yes (RUPTURED R ECTOPIC PREG 01/24/22--SURGERY BY DR. MONTILLA) Genitourinary: No Gastrointestinal: No Musculoskeletal: No Endocrine: No HEENT: No Cancer: No Psychosocial: No Integumentary: No Blood Disorders: No Adverse Reaction/Blood Tranf: No (SHASHI PEREZ) Family Medical History Patient reports no known family medical history. No Pertinent Family Hx (SHASHI PEREZ) Physical Exam Vital Signs Vital Signs - First Documented 05/01/23 05/01/23 17:18 19:39 Temp 36.7 Pulse 88 Resp 18 B/P (MAP) 97/68 (78) Pulse Ox 98 O2 Delivery Room Air (DAVIS BURCH MD) Vital Signs Capillary Refill : Less Than 3 Seconds (SHASHI PEREZ) Height, Weight, BMI Height: 5'2.00" Weight: 196lbs. 0oz. 88.362788et; 35.00 BMI Method:Stated General Appearance: No Apparent Distress, WD/WN Eyes: Bilateral Eye Normal Inspection, Bilateral Eye PERRL, Bilateral Eye EOMI HEENT: PERRL/EOMI, TMs Normal, Normal ENT Inspection, Pharynx Normal Neck: Full Range of Motion, Normal Inspection, Non Tender, Supple Respiratory: Chest Non Tender, Lungs Clear, Normal Breath Sounds Cardiovascular: Regular Rate, Rhythm, No Edema, No Gallop, No JVD Gastrointestinal: Normal Bowel Sounds, No Organomegaly, No Pulsatile Mass, Non Tender Back: Normal Inspection, No CVA Tenderness, No Vertebral Tenderness Extremity: Normal Capillary Refill, Normal Inspection, Normal Range of Motion Neurologic/Psychiatric: Alert, Oriented x3, No Motor/Sensory Deficits, Normal Mood/Affect, manager product II-XII Norm as Tested Skin: Normal Color, Warm/Dry (SHASHI PEREZ) Procedures/Interventions Suture Size: 5-0 (SHASHI PEREZ) Progress/Results/Core Measures Suspected Sepsis SIRS Temperature: Pulse: 88 Respiratory Rate: 18 Laboratory Tests 05/01/23 17:50: White Blood Count 9.1 Blood Pressure 97 /68 Mean: 78 Laboratory Tests 05/01/23 17:50: Creatinine 0.65, Platelet Count 245, Total Bilirubin 0.4 (SHASHI PEREZ) Results/Orders Lab Results Laboratory Tests Test 05/01/23 17:50 05/01/23 17:57 05/01/23 17:59 Range/Units White Blood Count 9.1 4.3-11.0 10^3/uL Red Blood Count 3.91 3.80-5.11 10^6/uL Hemoglobin 12.1 11.5-16.0 g/dL Hematocrit 36 35-52 % Mean Corpuscular Volume 92 80-99 fL Mean Corpuscular Hemoglobin 31 25-34 pg Mean Corpuscular Hemoglobin Concent 34 32-36 g/dL Red Cell Distribution Width 12.5 10.0-14.5 % Platelet Count 245 130-400 10^3/uL Mean Platelet Volume 8.6 L 9.0-12.2 fL Immature Granulocyte % (Auto) 0 % Neutrophils (%) (Auto) 65 42-75 % Lymphocytes (%) (Auto) 28 12-44 % Monocytes (%) (Auto) 5 0-12 % Eosinophils (%) (Auto) 1 0-10 % Basophils (%) (Auto) 0 0-10 % Neutrophils # (Auto) 5.9 1.8-7.8 10^3/uL Lymphocytes # (Auto) 2.6 1.0-4.0 10^3/uL Monocytes # (Auto) 0.5 0.0-1.0 10^3/uL Eosinophils # (Auto) 0.1 0.0-0.3 10^3/uL Basophils # (Auto) 0.0 0.0-0.1 10^3/uL Immature Granulocyte # (Auto) 0.0 0.0-0.1 10^3/uL Sodium Level 137 135-145 MMOL/L Potassium Level 3.8 3.6-5.0 MMOL/L Chloride Level 107 98-107 MMOL/L Carbon Dioxide Level 20 L 21-32 MMOL/L Anion Gap 10 5-14 MMOL/L Blood Urea Nitrogen 4 L 7-18 MG/DL Creatinine 0.65 0.60-1.30 MG/DL Estimat Glomerular Filtration Rate 128 BUN/Creatinine Ratio 6 Glucose Level 72 70-105 MG/DL Calcium Level 9.3 8.5-10.1 MG/DL Corrected Calcium 9.4 8.5-10.1 MG/DL Total Bilirubin 0.4 0.1-1.0 MG/DL Aspartate Amino Transf (AST/SGOT) 13 5-34 U/L Alanine Aminotransferase (ALT/SGPT) 10 0-55 U/L Alkaline Phosphatase 48 40-136 U/L Total Protein 7.3 6.4-8.2 GM/DL Albumin 3.9 3.2-4.5 GM/DL Human Chorionic Gonadotropin, Quant 7539 H <5 MIU/ML Influenza Type A (RT-PCR) Not Detected Not Detecte Influenza Type B (RT-PCR) Not Detected Not Detecte SARS-CoV-2 RNA (RT-PCR) Not Detected Not Detecte Urine Color YELLOW Urine Clarity CLEAR Urine pH 6.0 5-9 Urine Specific [place] 1.020 1.016-1.022 Urine Protein NEGATIVE NEGATIVE Urine Glucose (UA) NEGATIVE NEGATIVE Urine Ketones NEGATIVE NEGATIVE Urine Nitrite NEGATIVE NEGATIVE Urine Bilirubin NEGATIVE NEGATIVE Urine Urobilinogen 1.0 < = 1.0 MG/DL Urine Leukocyte Esterase 1+ H NEGATIVE Urine RBC (Auto) NEGATIVE NEGATIVE Urine RBC NONE /HPF Urine WBC 2-5 /HPF Urine Squamous Epithelial Cells >50 H /HPF Urine Crystals PRESENT H /LPF Urine Amorphous Sediment MOD SAMMIE URATES H /LPF Urine Bacteria TRACE /HPF Urine Casts NONE /LPF Urine Mucus LARGE H /LPF Urine Culture Indicated NO (DAVIS BURCH MD) Vital Signs/I&O 05/01/23 05/01/23 17:18 19:39 Temp 36.7 Pulse 88 80 Resp 18 18 B/P (MAP) 97/68 (78) 99/65 Pulse Ox 98 O2 Delivery Room Air Room Air (DAVIS BURCH MD) Vital Signs/I&O Capillary Refill : Less Than 3 Seconds (SHASHI PEREZ) Blood Pressure Mean: 78 Departure Communication (PCP) NCVPatient is G5, P3. Decreased appetite for the past week. She attempted to eat eggs yesterday but states she felt nauseous. According to her significant other had some burning sensation after she ate. No vomiting or diarrhea. Currently [address] Huerta. She is having no vaginal ble eding, urinary symptoms, vomiting, diarrhea, chest pain, cough, sore throat, ear pain, abdominal pain. She is currently asymptomatic. Due to her current presentation decreased appetite CBC, CMP, urinalysis, beta quant, Doppler and IV fluids was started. She did receive a liter of fluid. Did add COVID and influenza which was negative. CBC, CMP grossly unremarkable. cardiac activity noted 155 bpm. History of cholecystectomy. Soft abdomen. Urinalysis without strong evidence of infection. Beta quant 7500. No evidence suggesting infection. Symptoms likely more secondary to her . Discussed importance of staying hydrated and drinking plenty of fluids. She is requesting something for the nausea when she eats will prescribe Reglan. Discussed Pepcid. She may have some GERD that may be developing. Recommend hydration. Avoid fatty foods spicy foods. Recommend follow-up with your [employer] in the next 2 or 3 days. If any worsening symptoms return back to ED for further evaluation. Patient is hemodynamically stable (SHASHI PEREZ) Impression Primary Impression: Decrease in appetite Disposition: 01 HOME, SELF-CARE Condition: Stable Departure-Patient Inst. Decision time for Depature: 19:30 (SHASHI PEREZ) Referrals: SEBASTIÁN HUERTA MD (PCP/Family) Primary Care Physician Patient Instructions: Calorie Counting Diet Add. Discharge Instructions: May try Pepcid for acid reflux. Reglan for nausea. Recommend staying hydrated. Recommend follow-up with your [employer] for further evaluation. All discharge instructions reviewed with patient and/or family. Voiced understanding. Scripts Metoclopramide HCl (Reglan) 5 Mg Tablet 5 MG PO Q6H for Nausea, #8 TAB Prov: SHASHI PEREZ 05/01/23 ATTENDING PHYSICIAN NOTE: I was physically present as attending physician in the emergency department during the care of this patient, but I was not directly involved in the decision making or delivery of care for this patient. (DAVIS BURCH MD) SHASHI PEREZ May 01, 2023 17:51 DAVIS BURCH MD May 02, 2023 00:46
[2023-05-01 17:56] LABS: BASOPHILS % (AUTO) 0 % (0-10); EOSINOPHILS # (AUTO) 0.1 10^3/uL (0.0-0.3); EOSINOPHILS % (AUTO) 1 % (0-10); HEMATOCRIT 36 % (35-52); HEMOGLOBIN 12.1 g/dL (11.5-16.0); LYMPHOCYTES # (AUTO) 2.6 10^3/uL (1.0-4.0); LYMPHOCYTES % (AUTO) 28 % (12-44); MEAN CORPUSCULAR HEMOGLOBIN 31 pg (25-34); MEAN CORPUSCULAR HGB CONC 34 g/dL (32-36); MEAN CORPUSCULAR VOLUME 92 fL (80-99); MEAN PLATELET VOLUME 8.6 fL (9.0-12.2); MONOCYTES # (AUTO) 0.5 10^3/uL (0.0-1.0); MONOCYTES % (AUTO) 5 % (0-12); NEUTROPHILS # (AUTO) 5.9 10^3/uL (1.8-7.8); NEUTROPHILS % (AUTO) 65 % (42-75); PLATELET COUNT 245 10^3/uL (130-400); WHITE BLOOD COUNT 9.1 10^3/uL (4.3-11.0)
[2023-05-01 18:09] LABS: ALBUMIN 3.9 GM/DL (3.2-4.5); POTASSIUM 3.8 MMOL/L (3.6-5.0)
[2023-05-01 18:10] LABS: CALCIUM 9.3 MG/DL (8.5-10.1)
[2023-05-01 18:11] LABS: TOTAL PROTEIN 7.3 GM/DL (6.4-8.2)
[2023-05-01 18:13] LABS: BILIRUBIN,TOTAL 0.4 MG/DL (0.1-1.0)
[2023-05-01 18:15] LABS: CREATININE SERUM 0.65 MG/DL (0.60-1.30)
[2023-05-01 18:30] LABS: BILIRUBIN,URINE NEGATIVE (NEGATIVE); CLARITY,URINE CLEAR; COLOR,URINE YELLOW; GLUCOSE, URINE (UA) NEGATIVE (NEGATIVE); KETONES,URINE NEGATIVE (NEGATIVE); LEUKOCYTE ESTERASE ,URINE 1+ (NEGATIVE); NITRITE,URINE NEGATIVE (NEGATIVE); PROTEIN,URINE NEGATIVE (NEGATIVE)
[2023-05-01 18:33] LABS: AMORPHOUS SEDIMENT,UR MOD AMOR URATES /LPF; BACTERIA,URINE TRACE /HPF; SQUAMOUS EPITHELIAL CELL,UR >50 /HPF
[2023-05-01] MEDS ORDERED: METO5TAB75 PO (19:32)
[2023-05-01 19:39] VITALS: BP 99/65
== END 2023-05-01 19:40 | disposition home or self-care (01) ==
LOC: EDUNIT# 16:43 → ER 16:45
DX: O26.892 Other specified pregnancy related conditions, second trimester (principal); R63.0 Anorexia; Z3A.19 19 weeks gestation of pregnancy; Z28.310 Unvaccinated for COVID-19
CPT/HCPCS: 36415; 80053; 81000; 84702; 85025; 87636

== ENCOUNTER 2023-05-12 00:22 | Outpatient (CLI) | payer MEDICAID ==
[~2023-05-12] VITALS: Ht 160 cm; Wt 95.8 kg
[~2023-05-12 00:22] MED LIST changes: +METO5TAB75 PO
[2023-05-12 00:45] VITALS: BP 103/62
[2023-05-12 01:31] LABS: CLARITY,URINE CLEAR; COLOR,URINE YELLOW; GLUCOSE, URINE (UA) NEGATIVE (NEGATIVE); KETONES,URINE NEGATIVE (NEGATIVE); PROTEIN,URINE NEGATIVE (NEGATIVE)
[2023-05-12 01:32] LABS: BACTERIA,URINE NEGATIVE /HPF; BILIRUBIN,URINE NEGATIVE (NEGATIVE); LEUKOCYTE ESTERASE ,URINE NEGATIVE (NEGATIVE); NITRITE,URINE NEGATIVE (NEGATIVE)
--- NOTE | 2023-05-14 08:22 | Physician Query-Final Dx ---
MOSHE,05/14/23 0822: Clinic Account Progress/Dx Physician Query: Please give diagnosis Please include # weeks gestation Date of Service May 12, 2023 at 00:22 MALIK GONZALEZ DO 05/14/23 1251: Clinic Account Progress/Dx DIAGNOSIS: Diagnosis 20 week IUP RLQ pain Hx of appendectomy MOSHE,SepMay 14, 2023 08:22 MALIK GONZALEZ DO May 14, 2023 12:51
== END 2023-05-12 01:37 | disposition home or self-care (01) ==
LOC: WSo 00:22 → LDRP 00:26 → WSo 01:37
PROVIDERS: ATTEND Obstetrics & Gynecology
DX: O99.891 Other specified diseases and conditions complicating pregnancy (principal); R10.31 Right lower quadrant pain; Z3A.20 20 weeks gestation of pregnancy
CPT/HCPCS: 81000; 99212

== ENCOUNTER 2023-05-14 22:49 | Outpatient (CLI) | payer MEDICAID ==
[~2023-05-14] VITALS: Ht 158 cm; Wt 95.7 kg
[2023-05-14 23:24] VITALS: BP_SYST 124; BP_SYST 126; BP_DIAS 70
[2023-05-14 23:37] VITALS: BP 126/70
[2023-05-14 23:38] VITALS: BP 123/73
--- NOTE | 2023-05-15 08:10 | Physician Query-Final Dx ---
MOSHE,05/15/23 0810: Clinic Account Progress/Dx Physician Query: Please give diagnosis Please include # weeks gestation Date of Service May 14, 2023 at 22:49 MALIK GONZALEZ DO 05/15/23 1017: Clinic Account Progress/Dx DIAGNOSIS: Diagnosis low bp at home and head ache MOSHE,SepMay 15, 2023 08:10 MALIK GONZALEZ DO May 15, 2023 10:17
== END 2023-05-14 23:37 | disposition home or self-care (01) ==
LOC: WSo 22:49 → LDRP 22:50 → WSo 23:37
PROVIDERS: ATTEND Obstetrics & Gynecology
DX: O26.52 Maternal hypotension syndrome, second trimester (principal); O99.891 Other specified diseases and conditions complicating pregnancy; R51.9 Headache, unspecified; R22.43 Localized swelling, mass and lump, lower limb, bilateral; Z3A.21 21 weeks gestation of pregnancy
CPT/HCPCS: 99212

== ENCOUNTER 2023-05-26 21:14 | Emergency (ER) | payer MEDICAID ==
[~2023-05-26] VITALS: Ht 165.1 cm; Wt 97.5 kg
--- NOTE | 2023-05-26 21:28 | ED Headache ---
General Stated Complaint: MIGRAINE Source: patient Exam Limitations: no limitations History of Present Illness Date Seen by Provider: May 26, 2023 Time Seen by Provider: 21:17 Initial Comments 22-year-old female who is 23 weeks presents to the emergency department today for headache. It is typical for her usual migraines except she has a little more light sensitivity with this than usual. She has been trying Tylenol and she also was given Fioricet by her OB doctor and has not had much relief. All other systems reviewed and negative except documented per HPI. Voice recognition software was used to help create this chart Allergies and Home Medications Allergies Coded Allergies: latex (Verified Allergy, Unknown, 06/22/20) Patient Home Medication List Home Medication List Reviewed: Yes Htg202/Iron Fumarate/FA/Dss ( 19 Tablet) 1 Each Tablet, 1 EACH PO DAILY, (Reported) Entered as Reported by: ALEXANDRU GODWIN on 04/05/202029 Review of Systems Review of Systems Constitutional: see HPI Past Ieycmxk-Yrwrvj-Agkoqt Hx Patient Social History Tobacco Use?: No Use of E-Cig and/or Vaping dev: No Substance use?: No Alcohol Use?: No Immunizations Up To Date PED Vaccines UTD: Yes First/Initial COVID19 Vaccinat: Denies Seasonal Allergies Seasonal Allergies: Yes Past Medical History Surgery/Hospitalization HX: Exploratory lap (12/19/22), Removal of right fallopian tube; Cholecysectomy; Appendectomy; Tonsilectomy Surgeries: Yes (WISDOM TEETH EXTRACTION;01/24/22-APPY + R SALPINGECTOMY FOR ECTOPIC PREG) Appendectomy, Gallbladder, Tonsillectomy Respiratory: No Cardiac: No Neurological: Yes Headaches /Migraines Reproductive Disorders: Yes (RUPTURED R ECTOPIC PREG 01/24/22--SURGERY BY DR. MONTILLA) Genitourinary: No Gastrointestinal: No Musculoskeletal: No Endocrine: No HEENT: No Cancer: No Psychosocial: No Integumentary: No Blood Disorders: No Adverse Reaction/Blood Tranf: No Family Medical History Patient reports no known family medical history. No Pertinent Family Hx Physical Exam Vital Signs Capillary Refill : Height, Weight, BMI Height: 5'2.00" Weight: 196lbs. 0oz. 88.921843pz; 38.33 BMI Method:Stated General Appearance: WD/WN, no apparent distress HEENT: PERRL/EOMI, normal ENT inspection, TMs normal, pharynx normal Neck: non-tender, full range of motion, supple, normal inspection Cardiovascular: regular rate, rhythm, no murmur Respiratory: chest non-tender, lungs clear, normal breath sounds, no respiratory distress, no accessory muscle use Gastrointestinal: normal bowel sounds, non tender, soft Extremities: normal inspection, normal capillary refill Psychiatric: alert, oriented x 3 Crainal Nerves: normal hearing, normal speech, PERRL Motor/Sensory: no motor deficit, no sensory deficit, no pronator drift Skin: normal color, warm/dry Procedures/Interventions Suture Size: 5-0 Progress/Results/Core Measures Results/Orders My Orders Orders - ERMA ALEGRE DO Ketorolac Injection (Ketorolac Injection (05/26/23 21:30) Diphenhydramine Injection (Diphenhydram (05/26/23 21:30) Departure Communication (Admissions) Patient is hemodynamically stable, neurologically intact. She has no red flag symptoms. She has had migraine headaches since she was 15 years old this is similar in character and severity however she has a little bit more light sensitivity with this as she normally does. She is so limited on treatments at this time. She was given Fioricet by her OB provider. She is also taking Tylenol. I gave her IM Benadryl here. She is discharged in stable condition with recommendation to add Benadryl to her headache regimen. Impression Primary Impression: Migraine headache Qualified Codes: G43.909 - Migraine, unspecified, not intractable, without status migrainosus Disposition: 01 HOME, SELF-CARE Condition: Stable Departure-Patient Inst. Referrals: SEBASTIÁN HUERTA MD (PCP/Family) Primary Care Physician Patient Instructions: Migraines (DC) Add. Discharge Instructions: Increase your fluids at home, rest. Continue to use all previous prescribed medicines as needed. Use 50 mg of Benadryl every 6 hours as needed as well. Follow-up with your primary doctor for any nonemergent needs. Return to the emergency department for any severe concerns. ERMA ALEGRE DO May 26, 2023 21:28
[2023-05-26] MEDS ORDERED: diphenhydrAMINE INJ 50 MG/ML VIAL IM ONE (21:30)
[2023-05-26] MEDS ORDERED: KETOROLAC INJ 60 MG/2 ML VIAL IM ONE (21:30)
[2023-05-26 22:03] VITALS: BP 128/76
== END 2023-05-26 22:03 | disposition home or self-care (01) ==
LOC: EDUNIT# 21:14 → ER 21:15
DX: O99.352 Diseases of the nervous system complicating pregnancy, second trimester (principal); G43.909 Migraine, unspecified, not intractable, without status migrainosus; Z3A.23 23 weeks gestation of pregnancy; Z91.040 Latex allergy status; Z28.310 Unvaccinated for COVID-19
CPT/HCPCS: 99284

== ENCOUNTER 2023-06-26 22:48 | Outpatient (CLI) | payer MEDICAID ==
[~2023-06-26] VITALS: Ht 158 cm; Wt 98.6 kg
[2023-06-26 23:22] VITALS: BP 112/69
[2023-06-27 00:02] LABS: CLARITY,URINE CLEAR; COLOR,URINE YELLOW
[2023-06-27 00:03] LABS: BACTERIA,URINE NEGATIVE /HPF; BILIRUBIN,URINE NEGATIVE (NEGATIVE); GLUCOSE, URINE (UA) NEGATIVE (NEGATIVE); KETONES,URINE NEGATIVE (NEGATIVE); LEUKOCYTE ESTERASE ,URINE TRACE (NEGATIVE); NITRITE,URINE NEGATIVE (NEGATIVE); PROTEIN,URINE NEGATIVE (NEGATIVE)
[2023-06-27 00:28] VITALS: BP 99/54
[2023-06-27 00:30] VITALS: BP 99/54
--- NOTE | 2023-06-27 08:22 | Physician Query-Final Dx ---
MOSHE,06/27/23 0822: Clinic Account Progress/Dx Physician Query: Please give diagnosis Please include # weeks gestation Date of Service Jun 26, 2023 at 22:48 MALIK GONZALEZ DO 06/27/23 1033: Clinic Account Progress/Dx DIAGNOSIS: Diagnosis 32 week IUP Low back pain with ,SepJun 27, 2023 08:22 MALIK GONZALEZ DO Jun 27, 2023 10:33
== END 2023-06-27 00:30 | disposition home or self-care (01) ==
LOC: WSo 22:48 → LDRP 22:50 → WSo 06-27 00:30
PROVIDERS: ATTEND Obstetrics & Gynecology
DX: O99.891 Other specified diseases and conditions complicating pregnancy (principal); M54.50 Low back pain, unspecified; R10.9 Unspecified abdominal pain; Z3A.00 Weeks of gestation of pregnancy not specified
CPT/HCPCS: 81000; G0463; 99213

== ENCOUNTER 2023-07-11 00:06 | Outpatient (CLI) | payer MEDICAID ==
[~2023-07-11] VITALS: Ht 161.5 cm; Wt 98.8 kg
[2023-07-11 00:35] VITALS: BP 118/59
[2023-07-11 00:55] LABS: BILIRUBIN,URINE NEGATIVE (NEGATIVE); CLARITY,URINE CLEAR; COLOR,URINE YELLOW; GLUCOSE, URINE (UA) NEGATIVE (NEGATIVE); KETONES,URINE NEGATIVE (NEGATIVE); LEUKOCYTE ESTERASE ,URINE TRACE (NEGATIVE); NITRITE,URINE NEGATIVE (NEGATIVE); PROTEIN,URINE NEGATIVE (NEGATIVE)
[2023-07-11 00:56] LABS: BACTERIA,URINE NEGATIVE /HPF; SQUAMOUS EPITHELIAL CELL,UR 0-2 /HPF; WBC,URINE 0-2 /HPF
--- NOTE | 2023-07-12 08:07 | Physician Query-Final Dx ---
MOSHE07/12/23 0807: Clinic Account Progress/Dx Physician Query: Please give diagnosis Please include # weeks gestation Date of Service Jul 11, 2023 at 00:06 SKYLAR DAVIES DO 07/12/23 0851: Clinic Account Progress/Dx DIAGNOSIS: Diagnosis 30 week GA vaginal discharge MOSHE,SepJul 12, 2023 08:07 SKYLAR DAVIES DO Jul 12, 2023 08:51
== END 2023-07-11 01:24 | disposition home or self-care (01) ==
LOC: LDRP 00:06 → WSo 00:06
PROVIDERS: ATTEND Family Medicine
DX: O42.113 Preterm premature rupture of membranes, onset of labor more than 24 hours following rupture, third trimester (principal); Z3A.30 30 weeks gestation of pregnancy
CPT/HCPCS: 81000; 84112; G0463; 99213

== ENCOUNTER 2023-07-13 18:47 | Emergency (ER) | payer MEDICAID ==
[~2023-07-13] VITALS: Ht 160 cm; Wt 98.5 kg
[2023-07-13 18:51] VITALS: BP 129/82
--- NOTE | 2023-07-13 19:05 | ED GU-Female ---
General Chief Complaint: OB > 20 WEEKS Stated Complaint: 30 WK PREG VAG BLEEDING Source: patient History of Present Illness Date Seen by Provider: Jul 13, 2023 Time Seen by Provider: 18:50 Initial Comments 22-year-old female presenting with and 30 weeks 2 days EGA with due date of 09/19. She states that she has been having some spotting for the last 3 days. Today she started having more pain that felt like contractions. Whenever she does have a contraction she has more of the vaginal spotting. She states that it is like a light pink color. She denies any pain or burning with urination. She denies having any recent intercourse. She follows with Dr. Swartz for her . In the last hour she has had increased pain with sensation like contractions every 3 to 5 minutes. Timing/Duration: getting worse Severity/Quality: cramping Activities at Onset: none Associated Symptoms: No abdominal pain, No diaphoresis, No dysuria, No fever/chills, No loss of bladder control, No lower back pain, No lumps, No mass, No nausea/vomiting, No nocturia, No polyuria, No swelling, No syncope, No urinary frequency Allergies and Home Medications Allergies Coded Allergies: latex (Verified Allergy, Unknown, 06/22/20) Patient Home Medication List Home Medication List Reviewed: Yes Lar401/Iron Fumarate/FA/Dss ( 19 Tablet) 1 Each Tablet, 1 EACH PO DAILY, (Reported) Entered as Reported by: ALEXANDRU GODWIN on 04/05/202029 Review of Systems Review of Systems Constitutional: No chills, No fever EENTM: no symptoms reported Respiratory: no symptoms reported Cardiovascular: no symptoms reported Gastrointestinal: no symptoms reported Genitourinary: see HPI : Yes Expected Date of Delivery: Sep 19, 2023 Musculoskeletal: no symptoms reported Skin: no symptoms reported Past Owsrprf-Avmfai-Iwvafr Hx Patient Social History Tobacco Use?: No Substance use?: No Alcohol Use?: No Pt feels they are or have been: No Immunizations Up To Date PED Vaccines UTD: Yes First/Initial COVID19 Vaccinat: Denies Seasonal Allergies Seasonal Allergies: Yes Past Medical History Surgery/Hospitalization HX: Exploratory lap (12/19/22), Removal of right fallopian tube; Cholecysectomy; Appendectomy; Tonsilectomy Surgeries: Yes (WISDOM TEETH EXTRACTION;01/24/22-APPY + R SALPINGECTOMY FOR ECTOPIC PREG) Appendectomy, Gallbladder, Tonsillectomy Respiratory: No Cardiac: No Neurological: Yes Headaches /Migraines Reproductive Disorders: Yes (RUPTURED R ECTOPIC PREG 01/24/22--SURGERY BY DR. MONTILLA) Genitourinary: No Gastrointestinal: No Musculoskeletal: No Endocrine: No HEENT: No Cancer: No Psychosocial: No Integumentary: No Blood Disorders: No Adverse Reaction/Blood Tranf: No Family Medical History Patient reports no known family medical history. No Pertinent Family Hx Physical Exam Vital Signs Vital Signs - First Documented 07/13/23 18:51 Temp 36.8 Pulse 106 Resp 16 B/P (MAP) 129/82 (98) Pulse Ox 100 O2 Delivery Room Air Capillary Refill : Height, Weight, BMI Height: 5'2.00" Weight: 196lbs. 0oz. 88.700077qs; 37.88 BMI Method:Stated General Appearance: WD/WN, no apparent distress Cardiovascular: normal peripheral pulses, regular rate, rhythm Respiratory: chest non-tender, lungs clear, normal breath sounds Gastrointestinal: normal bowel sounds, non tender, soft, no pulsatile mass, other (gravid uterus with heart tones 144-148 by doppler) Neurologic/Psychiatric: alert, oriented x 3 Skin: normal color, warm/dry Procedures/Interventions Suture Size: 5-0 Progress/Results/Core Measures Suspected Sepsis SIRS Temperature: Pulse: Respiratory Rate: Blood Pressure / Mean: Results/Orders Vital Signs/I&O 07/13/23 18:51 Temp 36.8 Pulse 106 Resp 16 B/P (MAP) 129/82 (98) Pulse Ox 100 O2 Delivery Room Air Capillary Refill : Progress Note : Progress Note Advised patient that I would recommend she directly go down to labor and delivery for evaluation as I did not have any equipment here to determine if she was in labor or not. She had good heart tones and had felt the baby move. She denies any gush of fluid but states that every time she has a contraction sensation she has a little bit of spotting. She had good heart tones on exam here. I discussed the case with Dr. Schreiber for on-call OB for [facility]. She agreed that the patient needed to be seen in labor and delivery right away. She will let Dr. Swartz know as they have switched call and Dr. Swartz is now on. Updated patient and she states that her grandmother can take her directly down to labor and delivery. I told her if she had more problems to stop and call 911 and otherwise go immediately down to labor and delivery in [place] Departure Impression Primary Impression: Vaginal bleeding in patient after first trimester Disposition: HOME, SELF-CARE Condition: Stable Departure-Patient Inst. Decision time for Depature: 19:05 Referrals: RACHEL SWARTZ MD (PCP/Family) Primary Care Physician Patient Instructions: Vaginal Bleeding in Late ED Add. Discharge Instructions: Go directly to Labor and Delivery in [place] at [address] to be evaluated for labor All discharge instructions reviewed with patient and/or family. Voiced understanding. DAVID LITTLE MD Jul 13, 2023 19:05
[2023-07-13] MEDS ORDERED: METR375C PO (22:07)
== END 2023-07-13 19:07 | disposition home or self-care (01) ==
LOC: EDUNIT# 18:47 → ER FS 18:48
DX: O46.93 Antepartum hemorrhage, unspecified, third trimester (principal); Z3A.30 30 weeks gestation of pregnancy; Z91.040 Latex allergy status

== ENCOUNTER 2023-07-13 20:22 | Outpatient (CLI) | payer MEDICAID ==
[~2023-07-13] VITALS: Ht 160 cm; Wt 98.0 kg
[2023-07-13 21:00] VITALS: BP 114/73
[2023-07-13 21:12] LABS: BACTERIA,URINE TRACE /HPF; BILIRUBIN,URINE NEGATIVE (NEGATIVE); CLARITY,URINE CLEAR; COLOR,URINE YELLOW; GLUCOSE, URINE (UA) NEGATIVE (NEGATIVE); KETONES,URINE NEGATIVE (NEGATIVE); LEUKOCYTE ESTERASE ,URINE TRACE (NEGATIVE); NITRITE,URINE NEGATIVE (NEGATIVE); PH,URINE 6.5 (5-9); PROTEIN,URINE NEGATIVE (NEGATIVE); RBC,URINE RARE /HPF; SQUAMOUS EPITHELIAL CELL,UR 0-2 /HPF; WBC,URINE 0-2 /HPF
[2023-07-13] MEDS ORDERED: METR375C PO (22:07)
[2023-07-13] MEDS ORDERED: metroNIDAZOLE 500 MG TABLET ONE (22:13)
[2023-07-13] MEDS ORDERED: metroNIDAZOLE 250 MG TABLET PO ONE (22:15)
--- NOTE | 2023-07-16 08:20 | Physician Query-Final Dx ---
Clinic Account Progress/Dx Physician Query: Please give diagnosis Please include # weeks gestation Date of Service Jul 13, 2023 at 20:22 ,SepJul 16, 2023 08:20
== END 2023-07-13 22:20 | disposition home or self-care (01) ==
LOC: WSo 20:22 → LDRP 20:25 → WSo 22:20
PROVIDERS: ATTEND Family Medicine
DX: O46.93 Antepartum hemorrhage, unspecified, third trimester (principal); Z3A.30 30 weeks gestation of pregnancy
CPT/HCPCS: 81000; 87210; G0463; 99213

== ENCOUNTER 2023-08-15 13:59 | Inpatient (IN) | payer MEDICAID ==
[~2023-08-15] VITALS: Ht 160 cm; Wt 97.1 kg
[2023-08-15] VITALS (9 sets, daily range): BP systolic 88–120; BP diastolic 43–74
[~2023-08-15 13:59] MED LIST changes: +METR375C PO
[2023-08-15] MEDS ORDERED: AMPICILLIN (IV) 2,000 MG in NS (IVPB) 50 ML 50 ML IV SCH (14:29)
[2023-08-15] MEDS ORDERED: D5 LR 1,000 ML IV SOLN 1,000 ML IV SCH (14:30)
[2023-08-15] MEDS ORDERED: MINERAL OIL 30 ML UDC TOP PRN (14:30)
[2023-08-15] MEDS ORDERED: LACTATED RINGERS 1,000 ML 500 ML IV PRN (14:30)
[2023-08-15] MEDS ORDERED: ACETAMINOPHEN 500 MG TABLET ONE (14:46)
[2023-08-15 14:51] LABS: BASOPHILS % (AUTO) 0 % (0-10); EOSINOPHILS # (AUTO) 0.1 10^3/uL (0.0-0.3); EOSINOPHILS % (AUTO) 1 % (0-10); HEMATOCRIT 33 % (35-52); HEMOGLOBIN 11.1 g/dL (11.5-16.0); LYMPHOCYTES # (AUTO) 1.9 X 10^3 (1.0-4.0); LYMPHOCYTES % (AUTO) 14 % (12-44); MEAN CORPUSCULAR HEMOGLOBIN 31 pg (25-34); MEAN CORPUSCULAR HGB CONC 34 g/dL (32-36); MEAN CORPUSCULAR VOLUME 93 fL (80-99); MEAN PLATELET VOLUME 8.7 fL (9.0-12.2); MONOCYTES # (AUTO) 0.8 X 10^3 (0.0-1.0); MONOCYTES % (AUTO) 6 % (0-12); NEUTROPHILS # (AUTO) 10.7 X 10^3 (1.8-7.8); NEUTROPHILS % (AUTO) 79 % (42-75); PLATELET COUNT 209 10^3/uL (130-400); WHITE BLOOD COUNT 13.5 10^3/uL (4.3-11.0)
[2023-08-15] MEDS: ACETAMINOPHEN 500 MG TABLET PO PRN (14:51)
--- NOTE | 2023-08-15 15:30 | History & Physical-OB ---
OB - Chief Complaint & HPI Date/Time Date of Admission: Date of Admission: Aug 15, 2023 at 14:27 Date seen by a Provider: Aug 15, 2023 Time Seen by a Provider: 15:25 Chief Complaint/History OB-Reason for Admission/Chief: Rupture of Membranes Hx : 5 Hx Para: 3 Expected Date of Delivery: Sep 19, 2023 Gestational Age in Weeks: 35 Gestational Age in Days: 0 Other reason for admission: 23 yo @ 35.0 wga admitted for grossly ROM. States that shortly after ROM she started to have ctxs and they have become stronger over the last hr. + FM. Denies Vag bleeding. ROM clear around noon History of Labs A+, Ab neg Allergies and Home Medications Allergies Coded Allergies: latex (Verified Allergy, Unknown, 06/22/20) Patient Home Medication List Home Medication List Reviewed: Yes Metronidazole (Flagyl) 375 Mg Capsule, 500 MG PO BID Prescribed by: COREY CLEVELAND on 07/13/232206 [id number]/Iron Fumarate/FA/Dss ( 19 Tablet) 1 Each Tablet, 1 EACH PO DAILY, (Reported) Entered as Reported by: ALEXANDRU GODWIN on 04/05/202029 OB - History Hx of Present Care: Yes Ultrasounds: Normal mid trimester US Obstetrical Complications: None Medical Complications: None Obstetrical History Hx : 5 Hx Para: 3 Number of Living Children: 3 Hx Total # of Abortions (Spona: 1 Hx Multiple Gestation: No Hx Stillbirth: No Hx Complication: No Hx Induced Hypertens: No Hx Maternal Gestational Diabet: No Delivery History Hx Dystocia: No Hx Large For Gestational Age I: No Hx Small for Gestational Age I: No Hx Section: No Hx Vaginal Delivery Post C-Sec: No Hx Blood Disorders: No Adverse Rxn to Tranfusion: No Patient Past Medical History previously healthy Social History/Family History Alcohol Use: Denies Use Recreational Drug Use: No Smoking Cessation: Never smoker 2nd Hand Smoke Exposure: No Immunizations First/Initial COVID19 Vaccine: Denies Hepatitis A: Yes Hepatitis B: Yes Tetanus Booster (TDap): Less than 5yrs GBS Status: Unknown OB - Admission Exam Physical Exam HEENT: NCAT Heart: Rhythm Normal Lungs: Clear Abdomen: Gravid Cervical Dilatation: 2cm Effacement: Other (60%) Station: -2 Membranes: Ruptured Amniotic Fluid: Clear Heart Rate: 150's (160s) Accelerations: No Accelerations Decelerations: Variable Decelerations Statistical Geneticist Variability: Average (6-25) Contractions on Admission: < 5 Minutes Apart Intensity: Firm Labs Laboratory Tests Test 08/15/23 14:35 Range/Units White Blood Count 13.5 H 4.3-11.0 10^3/uL Red Blood Count 3.57 L 3.80-5.11 10^6/uL Hemoglobin 11.1 L 11.5-16.0 g/dL Hematocrit 33 L 35-52 % Mean Corpuscular Volume 93 80-99 fL Mean Corpuscular Hemoglobin 31 25-34 pg Mean Corpuscular Hemoglobin Concent 34 32-36 g/dL Red Cell Distribution Width 12.7 10.0-14.5 % Platelet Count 209 130-400 10^3/uL Mean Platelet Volume 8.7 L 9.0-12.2 fL Immature Granulocyte % (Auto) 0 % Neutrophils (%) (Auto) 79 H 42-75 % Lymphocytes (%) (Auto) 14 12-44 % Monocytes (%) (Auto) 6 0-12 % Eosinophils (%) (Auto) 1 0-10 % Basophils (%) (Auto) 0 0-10 % Neutrophils # (Auto) 10.7 H 1.8-7.8 X 10^3 Lymphocytes # (Auto) 1.9 1.0-4.0 X 10^3 Monocytes # (Auto) 0.8 0.0-1.0 X 10^3 Eosinophils # (Auto) 0.1 0.0-0.3 10^3/uL Basophils # (Auto) 0.0 0.0-0.1 10^3/uL Immature Granulocyte # (Auto) 0.0 0.0-0.1 10^3/uL Syphilis Total Antibody Negative Negative OB - Assessment/Plan/Diagnosis Assessment Assessment: active labor, rupture of membranes Admission Dx Third Trimester 35 week gestation Labor ROM Anemia in Admission Status: Inpatient Order (span 2 midnights) Reason for Inpatient Admission: labor and post care Plan Other Plan 23 yo @ 35.0 wga here for ROM and labor Plan - Started on Ampicillin for unknown GBS status in labor - CEFM - Expectant management - IVFs - May need to augment with pitocin RACHEL SWARTZ MD Aug 15, 2023 15:30
[2023-08-15] MEDS ORDERED: METOCLOPRAMIDE INJ 10 MG/2 ML IV ONE (16:15)
[2023-08-15] MEDS ORDERED: CITRIC ACID/SODIUM CITRATE ORAL SOLN 30 ML PO ONE (16:15)
[2023-08-15] MEDS ORDERED: FAMOTIDINE INJ 20MG/2ML VIAL IV ONE (16:15)
[2023-08-15] MEDS ORDERED: CATHETER FLUSH 10 ML SYR IV PRN (16:15)
[2023-08-15] MEDS ORDERED: LACTATED RINGERS 1,000 ML 1,000 ML IV PRN ×2 (16:15)
[2023-08-15] MEDS ORDERED: CITRIC ACID/SODIUM CITRATE ORAL SOLN 30 ML ONE (16:16)
[2023-08-15] MEDS ORDERED: FAMOTIDINE INJ 20MG/2ML VIAL ONE (16:16)
[2023-08-15] MEDS ORDERED: METOCLOPRAMIDE INJ 10 MG/2 ML ONE (16:16)
[2023-08-15] MEDS ORDERED: NS (IVPB) 250 ML 250 ML ONE (16:30)
[2023-08-15] MEDS ORDERED: OXYTOCIN DRIP PRE-MIX 1,000 ML IV ONE (16:30)
[2023-08-15] MEDS ORDERED: ONDANSETRON INJECTION 4 MG/2 ML (SDV) ONE ×2 (16:30→17:27)
[2023-08-15] MEDS ORDERED: ceFAZolin INJECTION 2,000 MG in NS (IVPB) 50 ML 50 ML IV ONE (16:30)
[2023-08-15] MEDS ORDERED: AZITHROMYCIN INJECTION 500 MG VIAL ONE (16:30)
[2023-08-15] MEDS ORDERED: fentaNYL INJECTION 100 MCG/2 ML VIAL ONE (16:30)
--- NOTE | 2023-08-15 16:52 | Labor Progress Note ---
Labor Progress Note Labor Progress Note Date Seen by Provider: Aug 15, 2023 Time Seen by Provider: 16:00 Subjective: Pt feeling ctxs. 5/10 pain. CEFM with minimal variablilty and variable decelerations w/o accelerations Objective: /-2 Assessment/Plan: Patty Cavanaugh is a (23 /Para 5 / 3,Gestational Age (wks)35.0 here for SROM and labor CEFM w/o accerlations and having variable decelerations Consulted Dr Sy for primary c/s for intolerance to labor, urgent c/s called, no improvement with IVF bolus or position changes and minimal cervical change GBS unknown, ampicillin was started upon arrival Vitals - Labs Labs Laboratory Tests 08/15/23 14:35: White Blood Count 13.5H, Red Blood Count 3.57L, Hemoglobin 11.1L, Hematocrit 33L , Mean Corpuscular Volume 93, Mean Corpuscular Hemoglobin 31, Mean Corpuscular Hemoglobin Concent 34, Red Cell Distribution Width 12.7, Platelet Count 209, Mean Platelet Volume 8.7L, Immature Granulocyte % (Auto) 0, Neutrophils (%) (Auto) 79H, Lymphocytes (%) (Auto) 14, Monocytes (%) (Auto) 6, Eosinophils (%) (Auto) 1, Basophils (%) (Auto) 0, Neutrophils # (Auto) 10.7H, Lymphocytes # (Auto) 1.9, Monocytes # (Auto) 0.8, Eosinophils # (Auto) 0.1, Basophils # (Auto) 0.0, Immature Granulocyte # (Auto) 0.0, Syphilis Total Antibody Negative RACHEL SWARTZ MD Aug 15, 2023 16:52
[2023-08-15] MEDS ORDERED: PHENYLEPHRINE 100 MCG/ML 10 ML (ANESTHESIA) SYR ONE (16:59)
[2023-08-15] MEDS ORDERED: ONDANSETRON INJECTION 4 MG/2 ML (SDV) IVP PRN ×2 (17:00→18:15)
[2023-08-15] MEDS ORDERED: Tetanus/Diphtheria/Pertussis (Acell) ADULT Vaccine 0.5 ML IM SCH (17:00)
[2023-08-15] MEDS ORDERED: NALOXONE 0.4 MG/ML 1 ML VIAL IV PRN ×3 (17:00→18:15)
[2023-08-15] MEDS ORDERED: MEASLES, MUMPS, RUBELLA VACCINE (MMR) SC SCH (17:00)
--- NOTE | 2023-08-15 17:00 | Progress Note ---
Standard Progress Note Progress Notes/Assess & Plan Date Seen by a Provider: Aug 15, 2023 Time Seen by a Provider: 16:45 Progress/Assessment & Plan Called in by Dr. Almendarez for emergent due to distress and SROM at 35 weeks being remote from delivery. Risk reviewed with patient and consent obtained, all questions answered. MALIK GONZALEZ DO Aug 15, 2023 17:00
--- NOTE | 2023-08-15 17:02 | Discharge Inst-Women's Service ---
Discharge Inst-Women's Serv Depart Medication/Instructions New, Converted or Re-Newed RX: Transmitted to Pharmacy Final Diagnosis POD 2 PLTCS Problems Reviewed?: Yes Consults/Follow Up Additional Follow Up: Yes Orders/Referrals Dr. Sy in 7-[address] Almendarez in 6 weeks Activity Activity: Activity as Tolerated Driving Instructions: No Driving for 1 Week NO SMOKING: NO SMOKING Nothing Inside Vagina: No Douching, No [place], No Tampons Diet Discharge Diet: No Restrictions Symptoms to Report to : Bleeding Excessive, Pain Increased, Fever Over 101 Degrees F, Vaginal Bleeding Increase, Questions/Concerns For Any Problems or Questions: Contact Your Physician Skin/Wound Care Infection Signs and Symptoms: Increased Redness, Foul Odor of Wound, Increased Drainage, Skin Itchy or Has a Rash, Increased Swelling, Temperature Above 101 F Operative Area Clean and Dry: Keep Incision Clean/Dry Stitches/Didi/Dermabond: Dermabond, Care of Stitches Bathing Instructions: MALIK Caceres DO Aug 15, 2023 17:02
[2023-08-15] MEDS ORDERED: ACHD5005 PO (17:04)
[2023-08-15] MEDS ORDERED: IBUP-844 PO (17:04)
[2023-08-15] MEDS ORDERED: DOCU100C37 PO (17:04)
[2023-08-15] MEDS ORDERED: BUPIVACAINE 0.25% 10 ML VIAL ONE (17:30)
[2023-08-15] MEDS: OXYTOCIN DRIP PRE-MIX 500 ML IV SCH ×2 (17:49→18:59)
[2023-08-15] MEDS: KETOROLAC INJ 30 MG/ML VIAL IV SCH ×2 (17:59→23:58)
[2023-08-15] MEDS ORDERED: morphine INJ 10 MG/ML 1ML (SYR OR VIAL) IVP ONE (18:15)
[2023-08-15] MEDS ORDERED: ONDANSETRON INJECTION 4 MG/2 ML (SDV) IV PRN (18:15)
[2023-08-15] MEDS ORDERED: MEPERIDINE INJ 50 MG/ML VIAL IVP ONE (18:15)
[2023-08-15] MEDS ORDERED: METOCLOPRAMIDE INJ 10 MG/2 ML IV PRN (18:15)
[2023-08-15] MEDS ORDERED: diphenhydrAMINE INJ 50 MG/ML VIAL IV PRN (18:15)
[2023-08-15] MEDS ORDERED: AMPICILLIN (IV) 1,000 MG in NS (IVPB) 50 ML 50 ML IV SCH (18:30)
--- NOTE | 2023-08-15 20:30 | OPERATIVE REPORT ---
PREOPERATIVE DIAGNOSES: 1. A 23-year-old G5, P3 at 35 weeks' gestation. 2. labor with spontaneous rupture of membranes. 3. distress. 4. Remote from delivery. POSTOPERATIVE DIAGNOSES: 1. A 23-year-old G5, P3 at 35 weeks' gestation. 2. labor with spontaneous rupture of membranes. 3. distress. 4. Remote from delivery. PROCEDURE: Primary low transverse section. SURGEON: Narciso Gonzalez DO ANESTHESIA: Spinal. ESTIMATED BLOOD LOSS: 500 mL URINE OUTPUT: 100 mL clear at the end of the procedure. FLUIDS: 1200 mL of lactated Ringer's solution. FINDINGS: A live male , weight pending, Apgars of 6 and 8. Grossly normal appearing uterus, bilateral tubes and ovaries. SPECIMEN SENT: Placenta and cord blood. INDICATIONS FOR PROCEDURE: This 23-year-old female is a patient admitted, who was admitted by Dr. Almendarez and sought care with Dr Almendarez at the [facility]. Her was uncomplicated with exception of spontaneous rupture of membranes that occurred earlier this afternoon. Upon presentation to the hospital, the patient was found to have indeterminate lie. After further evaluation, Dr. Almendarez did determine the patient was vertex however, there was a prolonged episode of tachycardia with minimal variability and repetitive late decelerations. Due to this, I was called for urgent delivery. When I arrived, risk of the procedure were discussed with the patient in detail. After all of her questions were answered, she was agreeable to proceed. Consent was obtained, the patient was taken to the operating room. OPERATIVE REPORT IN DETAIL: Once in the operating room, spinal analgesia was found to be adequate, was placed in supine position with leftward tilt, prepped and draped in normal sterile fashion. Timeout was performed. Anesthesia was tested. I then make a Pfannenstiel skin incision with a knife and carried underlying fascia using Bovie cautery. The fascial incision extended laterally using Bovie cautery. The superior aspect of fascial incision was then grasped with Sarwat clamps, tented upward, and dissected off the underlying rectus muscles. The inferior aspect of the fascial incision was then grasped with Sarwat clamps, tented up and dissected off the underlying rectus muscles. The rectus muscles were then dissected down the midline, which exposed the peritoneum, which entered bluntly using blunt traction. Donell ring retractor was placed in the peritoneal incision, which offers excellent lateral sidewall retraction. I identified the lower uterine segment, found to be thinned out and make a low transverse incision to the vesicouterine peritoneum and bluntly dissected this off the lower uterine segment, creating a bladder flap. I then proceeded with my myotomy until membranes were visualized, at which point I thinned uterine incision laterally and superiorly using bandage scissors. Amniotomy was performed in the process of doing this, the was found in the left transverse presentation. The head was brought down to the incision where with gentle fundal pressure, the head was delivered through the incision, the nares and oropharynx were bulb suctioned. Anterior and posterior shoulders were delivered. The was brought to the operative field where cords were doubly clamped and cut, and infant handed off to waiting nurses and Dr. Almendarez who was present for delivery. Cord blood was collected. Three-vessel cord, intact placenta was delivered spontaneously thereafter. IV Pitocin was initiated to facilitate uterine contraction. Uterine fundus confirmed by manual massage. The uterus was then exteriorized and cleared of all endometrial clots and debris. I then proceeded with closing the uterine incision using 0 Vicryl suture in a running locked fashion. Second layer of imbricating 0 Monocryl was placed. Excellent hemostasis was noted after doing this. I then placed the uterus back in the pelvis and copiously irrigated the pelvis using normal saline. Once again, there was no active bleeding noted from any of my dissection planes. I placed Interceed antiadhesive over my low transverse incision. I removed the Donell ring retractor and then proceeded to closing the peritoneum using 3-0 Vicryl suture in a running fashion. Rectus muscles were reapproximated using 3-0 Vicryl suture in interrupted fashion. The fascia was reapproximated using 0 Vicryl suture in a running fashion. The subcutaneous tissue was reapproximated using 3-0 plain interrupted subcutaneous stitch and skin reapproximated using 4-0 Monocryl running subcuticular. Dermabond was applied to incision, sterile dressing with adhesive white tape. The patient tolerated the procedure well and sent to recovery area in stable condition. Lap and sponge counts were correct at the end of the procedure. Instrument counts correct as well. Two grams of Ancef, 500 mg of azithromycin were given preoperatively for infection prophylaxis. Job ID: [id number] DocumentID: [id number] Dictated Date: 08/15/2023 17:42:03 Director Television News Date: 08/15/2023 20:28:00 Dictated By: NARCISO GONZALEZ DO
[2023-08-15] MEDS: HYDROcodone/ACETAMINOPHEN 5 MG/325 MG TABLET PO PRN ×2 (20:42→21:37)
[2023-08-15] MEDS: DOCUSATE SODIUM 100 MG CAPSULE PO SCH (20:42)
[2023-08-15] MEDS ORDERED: CATHETER FLUSH 10 ML SYR IV SCH ×2 (22:00)
[2023-08-16 04:45] VITALS: BP 111/61
[2023-08-16] MEDS: HYDROcodone/ACETAMINOPHEN 5 MG/325 MG TABLET PO PRN ×4 (04:49→22:46)
[2023-08-16 05:57] LABS: BASOPHILS # (AUTO) 0.1 10^3/uL (0.0-0.1); BASOPHILS % (AUTO) 0 % (0-10); EOSINOPHILS # (AUTO) 0.1 10^3/uL (0.0-0.3); EOSINOPHILS % (AUTO) 0 % (0-10); HEMATOCRIT 28 % (35-52); HEMOGLOBIN 9.7 g/dL (11.5-16.0); LYMPHOCYTES # (AUTO) 0.9 10^3/uL (1.0-4.0); LYMPHOCYTES % (AUTO) 5 % (12-44); MEAN CORPUSCULAR HEMOGLOBIN 31 pg (25-34); MEAN CORPUSCULAR HGB CONC 34 g/dL (32-36); MEAN CORPUSCULAR VOLUME 92 fL (80-99); MEAN PLATELET VOLUME 8.9 fL (9.0-12.2); MONOCYTES # (AUTO) 0.7 10^3/uL (0.0-1.0); MONOCYTES % (AUTO) 4 % (0-12); NEUTROPHILS # (AUTO) 15.7 10^3/uL (1.8-7.8); NEUTROPHILS % (AUTO) 90 % (42-75); PLATELET COUNT 164 10^3/uL (130-400); WHITE BLOOD COUNT 17.5 10^3/uL (4.3-11.0)
[2023-08-16] MEDS: KETOROLAC INJ 30 MG/ML VIAL IV SCH ×2 (06:07→13:16)
--- NOTE | 2023-08-16 09:24 | Postpartum Progress Note ---
Post Op HALF SOLE FITTER Carriage Rider Post-operative Day #1 s/p at 35 weeks last night, labor, intolerance of labor. Baby transferred to yesterday, per patient baby is doing better. Subjective: Patient is without complaints. Ambulating, voiding after dumont removed. Tolerating a regular diet without nausea or vomiting. Normal lochia. Pain is well controlled with oral pain medications, still in a lot of discomfort from ambulating and normal post-op pain. Patient has expressed a desire to be discharged so she can be with her baby Objective: VSS/AF post-op HCT/PLT 28/164 Physical Exam: General - Alert and oriented, no apparent distress Abdomen - Soft, appropriately tender to palpation, non-distended, fundus firm at 4 cm below umbilicus Incision - clean, dry and intact; no erythema or induration, no drainage Extremities - no edema, negative calf pain bilaterally Assessment: post-operative day # 1 doing well overall from surgical standpoint. Recovering well, hemodynamically stable Still in significant amount of normal post-op pain, only 16 hours out from C- Section. Plan: Routine post-operative care. Encourage ambulation. VTE prophylaxis: SCDs. Plan for discharge: Discussed patient's desire to be discharged early so she can go be with baby in . I expressed my concerns about significant amount pain patient is in my recommendation she stay another day for pain control reasons. She voiced understanding and agrees to stay another day. RN in room during patient encounter. No questions or additional concerns voiced. Anticipate discharge home tomorrow if patient continues to do well. Vitals - Labs Vital Signs - I&O Vital Signs Date Time Temp Pulse Resp B/P (MAP) Pulse Ox O2 Delivery O2 Flow Rate FiO2 08/16/23 04:45 37.0 92 16 111/61 (78) 96 Room Air 08/15/23 23:56 36.0 98 16 90/52 (65) 96 Room Air 08/15/23 19:25 36.6 70 18 98/56 (70) 98 Room Air 08/15/23 18:39 35.9 16 100/63 (75) 98 Room Air 08/15/23 18:39 Room Air 08/15/23 18:30 36.1 15 90/46 (61) 98 Room Air 08/15/23 18:30 Room Air 08/15/23 18:15 Room Air 08/15/23 18:15 36.0 18 96/57 (70) 100 Room Air 08/15/23 18:00 35.7 18 101/64 (76) 94 Room Air 08/15/23 18:00 Room Air 08/15/23 17:45 Room Air 08/15/23 17:45 36.6 22 88/43 (58) 97 Room Air 08/15/23 16:40 36.9 113 18 108/66 (80) 08/15/23 12:15 35.7 116 18 97 Room Air I & O 08/16/23 06:59 Intake Total 1900 ml Output Total 1700 ml Balance 200 ml Labs Laboratory Tests 08/15/23 14:35: White Blood Count 13.5H, Red Blood Count 3.57L, Hemoglobin 11.1L, Hematocrit 33L , Mean Corpuscular Volume 93, Mean Corpuscular Hemoglobin 31, Mean Corpuscular Hemoglobin Concent 34, Red Cell Distribution Width 12.7, Platelet Count 209, Mean Platelet Volume 8.7L, Immature Granulocyte % (Auto) 0, Neutrophils (%) (Auto) 79H, Lymphocytes (%) (Auto) 14, Monocytes (%) (Auto) 6, Eosinophils (%) (Auto) 1, Basophils (%) (Auto) 0, Neutrophils # (Auto) 10.7H, Lymphocytes # (Auto) 1.9, Monocytes # (Auto) 0.8, Eosinophils # (Auto) 0.1, Basophils # (Auto) 0.0, Immature Granulocyte # (Auto) 0.0, Syphilis Total Antibody Negative 08/16/23 05:17: White Blood Count 17.5H, Red Blood Count 3.09L, Hemoglobin 9.7L, Hematocrit 28L, Mean Corpuscular Volume 92, Mean Corpuscular Hemoglobin 31, Mean Corpuscular Hemoglobin Concent 34, Red Cell Distribution Width 12.5, Platelet Count 164, Mean Platelet Volume 8.9L, Immature Granulocyte % (Auto) 0, Neutrophils (%) (Auto) 90H, Lymphocytes (%) (Auto) 5L, Monocytes (%) (Auto) 4, Eosinophils (%) (Auto) 0, Basophils (%) (Auto) 0, Neutrophils # (Auto) 15.7H, Lymphocytes # (Auto) 0.9L, Monocytes # (Auto) 0.7, Eosinophils # (Auto) 0.1, Basophils # (Auto) 0.1, Immature Granulocyte # (Auto) 0.0 STEVE STAPLETON DO Aug 16, 2023 09:24
[2023-08-16 09:46] VITALS: BP 100/58
[2023-08-16] MEDS: DOCUSATE SODIUM 100 MG CAPSULE PO SCH ×2 (10:32→22:46)
[2023-08-16] MEDS: SIMETHICONE 80 MG CHEWABLE TABLET PO PRN (11:34)
[2023-08-16 13:12] VITALS: BP 96/63
[2023-08-16 16:55] VITALS: BP 104/59
[2023-08-16] MEDS: IBUPROFEN 600 MG TABLET PO SCH (18:49)
[2023-08-16 19:47] VITALS: BP 95/51
[2023-08-17 01:15] VITALS: BP 107/62
[2023-08-17] MEDS: SIMETHICONE 80 MG CHEWABLE TABLET PO PRN ×2 (01:18→08:01)
[2023-08-17] MEDS: IBUPROFEN 600 MG TABLET PO SCH ×3 (01:18→12:35)
[2023-08-17] MEDS: ACETAMINOPHEN 500 MG TABLET PO PRN ×2 (06:38→12:35)
[2023-08-17 08:00] VITALS: BP 103/64
[2023-08-17] MEDS: DOCUSATE SODIUM 100 MG CAPSULE PO SCH (08:01)
--- NOTE | 2023-08-17 08:27 | Short Stay Summary ---
Discharge Summary Hospital Course Final Diagnosis: 35 weeks, Section Hospital Course Date of Admission: Aug 15, 2023 at 14:27 Admission Diagnosis : Family Physician/Provider: Dee Dee Almendarez MD Date of Discharge: 08/17/23 Discharge Diagnosis: 35 weeks, Section. Hospital Course: Patient admitted at 35 weeks in labor, underwent for distress under spinal anesthesia, productive of viable male infant with 6/8 on 08/15/23. had to be transferred out. Mother with uncomplicated post-op course and ready for discharge today on post-op day #2. She will call for incision check on Sunday when Dr. Sy's office opens. Labs and Pending Lab Test: none pending. Home Meds Active Hydrocodone-Acetamin 5-325 mg (Hydrocodone/Acetaminophen) 5 Mg-325 Mg Tablet 1-2 Tab PO Q6H PRN Docusate Sodium 100 Mg Capsule 100 Mg PO BID PRN Ibu (Ibuprofen) 600 Mg Tablet 600 Mg PO Q6H Flagyl (Metronidazole) 375 Mg Capsule 500 Mg PO BID 5 Days Reported 19 Tablet ([id number]/Iron Fumarate/FA/Dss) 1 Each Tablet 1 Each PO DAILY Assessment/Pt Instructions Post-op Day 2 35 weeks Discharge Instructions Discharge Diet: No Restrictions Activity as Tolerated: Yes Discharge Physical Examination General Appearance: Alert, Oriented X3, Other (VSS/AF) Abdominal: Soft, No Tenderness, Other (Incision clean and dry, no erythema. Uterus firm and non-tender 2 cm below umbilicus) Extremities: No Tenderness/Swelling Skin: No Rashes Neuro: Normal Gait Psych/Mental Status: Mental Status NL Allergies: Coded Allergies: latex (Verified Allergy, Unknown, 06/22/20) Discharge Summary Date of Admission Aug 15, 2023 at 14:27 Date of Discharge 08/17/23 Discharge Date: Aug 17, 2023 Discharge Time: 08:25 Admission Diagnosis 35 weeks labor Consults/Procedures Procedures Spinal Anesthesia Section Discharge Diagnosis 35 weeks Labor Section STEVE STAPLETON DO Aug 17, 2023 08:24
[2023-08-17] MEDS: HYDROcodone/ACETAMINOPHEN 5 MG/325 MG TABLET PO PRN (12:36)
[2023-08-17 13:04] VITALS: BP 103/64
--- NOTE | 2023-08-17 13:05 | Anesthesia-Regional Post-Op ---
Regional Patient Condition Mental Status: Alert, Oriented x3 Circulation: Same as Pre-Op Headache: Absent Sensation: Full Recovery Motor Block: Absent Post Op Complications Complications None Follow Up Care/Instructions Patient Instructions None needed. Anesthesia/Patient Condition Patient is doing well, no complaints, stable vital signs, no apparent adverse anesthesia problems. No complications reported per nursing. GABBY CURRY CRNA Aug 17, 2023 13:05
== END 2023-08-17 13:04 | disposition home or self-care (01) | DRG 788 ==
LOC: WSo 13:59 → LDRP 13:59 → WSo 14:26 → LDRP 14:27
PROVIDERS: ADMIT Family Medicine; ATTEND Family Medicine
PROC: 10D00Z1 Extraction of Products of Conception, Low, Open Approach (ICD-10-PCS; principal; 2023-08-15 16:46)
DX: O60.14X0 Preterm labor third trimester with preterm delivery third trimester, not applicable or unspecified (principal); Z3A.35 35 weeks gestation of pregnancy; Z37.0 Single live birth; Z91.040 Latex allergy status; O76 Abnormality in fetal heart rate and rhythm complicating labor and delivery; O99.02 Anemia complicating childbirth
CPT/HCPCS: 36415; 85025; 86780; 86850; 86900; 86901; 94664; 99213